=== PATIENT | male | born 1935 | race Caucasian/White ===

== ENCOUNTER → 2017-03-13 | Outpatient (CLI) | payer MEDICARE ==
[~2017-03-13] MED LIST: AMLO10TA82 PO; ASP81CT PO; ATOR40TA PO; ATR20T PO; CEPH250T PO; ESCI10TA48 PO; FLAXSEED MEAL PO; GLIM2TAB PO; HYDR-3454 PO; LISI40TA PO; METO25TA2 PO; MTF500T PO; OMEG1CAP24 PO; TAMS0.4C2 PO; UBID100C27 PO
== END ==
LOC: CARD 10:51
PROVIDERS: ATTEND Family Medicine
DX: R00.2 Palpitations (principal)
CPT/HCPCS: 93005

== ENCOUNTER 2018-10-25 05:36 | Outpatient (CLI) | payer MEDICARE ==
[~2018-10-25] VITALS: Ht 180.3 cm; Wt 99.3 kg
[2018-10-25] MEDS ORDERED: LISI40TA PO (13:19)
[2018-10-25] MEDS ORDERED: ASPI-999 PO (13:19)
[2018-10-25] MEDS ORDERED: TAMS0.4C2 PO (13:19)
[2018-10-25] MEDS ORDERED: AMLO10TA6 PO (13:19)
[2018-10-25] MEDS ORDERED: HYDR25TA4 PO (13:19)
[2018-10-25] MEDS ORDERED: GLIM2TAB PO (13:19)
[2018-10-25] MEDS ORDERED: METF-397 PO (13:19)
[2018-10-25] MEDS ORDERED: ATOR20TA66 PO (13:19)
[2018-10-25] MEDS ORDERED: FLUT9.9S NSEACH (13:19)
== END 2018-10-25 13:23 | disposition home or self-care (01) ==
LOC: PREOP 05:36
PROVIDERS: ATTEND Surgery
DX: Z01.818 Encounter for other preprocedural examination (principal)

== ENCOUNTER 2018-11-01 07:45 | Day surgery (SDC) | payer MEDICARE ==
[~2018-11-01] VITALS: Ht 180.3 cm; Wt 99.3 kg
[~2018-11-01 07:45] MED LIST changes: +AMLO10TA6 PO; +ASPI-999 PO; +ATOR20TA66 PO; +FLUT9.9S NSEACH; +HYDR25TA4 PO; +METF-397 PO
[2018-11-01 08:00] VITALS: BP 145/85
--- NOTE | 2018-11-01 08:08 | Progress Note-Pre Operative ---
Pre-Operative Progress Note H&P Reviewed The H&P was reviewed, patient examined and no changes noted. Date Seen by Provider: Nov 01, 2018 Time Seen by Provider: 08:07 Date H&P Reviewed: Nov 01, 2018 Time H&P Reviewed: 08:07 Pre-Operative Diagnosis: right face lesion, left neck lesion, facial lesions RACHEL KAUR DO Nov 01, 2018 08:08
[2018-11-01] MEDS ORDERED: BUPIVACAINE 0.5% 30 ML (SENSORCAINE) VIAL ONE (08:33)
[2018-11-01] MEDS ORDERED: LIDOCAINE 1% INJ 20 ML 20 ML VIAL ONE (08:33)
[2018-11-01] MEDS ORDERED: ceFAZolin 1,000 MG/10 ML (ANCEF) VIAL ONE (08:35)
[2018-11-01] MEDS ORDERED: NS (IVPB) 50 ML ONE (08:36)
[2018-11-01] MEDS ORDERED: proPOfol 200 MG/20 ML (DIPRIVAN) VIAL IV ONE (08:46)
[2018-11-01] MEDS ORDERED: SEVOFLURANE (ULTANE) 15 ML INHAL SOLN ONE ×4 (08:46→09:40)
[2018-11-01] MEDS ORDERED: ONDANSETRON 4 MG/2 ML (SDV) Z0FRAN ONE (08:46)
[2018-11-01] MEDS ORDERED: LIDOCAINE PF 2% 5 ML (XYLOCAINE) VIAL ONE (08:46)
[2018-11-01] MEDS ORDERED: fentaNYL INJECTION 100 MCG/2 ML AMP ONE (08:46)
[2018-11-01] MEDS ORDERED: LACTATED RINGERS 1,000 ML IV PRN (08:55)
[2018-11-01] MEDS ORDERED: ceFAZolin INJECTION 1,000 MG in NS (IVPB) 50 ML IV ONE (09:00)
[2018-11-01] MEDS ORDERED: ATROPINE INJ 0.4 MG/ML SDV ONE (09:19)
[2018-11-01] MEDS ORDERED: GLYCOPYRROLATE 0.2 MG/ML (ROBINUL) 2 ML VIAL ONE (09:19)
--- NOTE | 2018-11-01 09:59 | Progress Note-Post Operative ---
Post-Operative Progess Note Surgeon (s)/Boat Motor Mechanic (s) Surgeon RACHEL KAUR DO Boat Motor Mechanic: NA Pre-Operative Diagnosis right face lesion, left neck lesion, facial lesions Post-Operative Diagnosis SAME Procedure & Operative Findings Date of Procedure 11/01/18 Procedure Performed/Findings excision right face lesion 2.5x1cm left neck lesion 2.5x1.5cm and right cheek lesion amputated and lesion base and fulgurated Anesthesia Type gen Estimated Blood Loss Estimated blood loss (mL): min Specimens/Packing Specimens Removed skin lesions RACHEL KAUR DO Nov 01, 2018 09:59
[2018-11-01] MEDS ORDERED: ONDANSETRON 4 MG/2 ML (SDV) Z0FRAN IVP PRN (10:00)
--- NOTE | 2018-11-01 10:01 | Discharge Inst-Simple/Standard ---
Discharge Inst-Standard Patient Instructions/Follow Up Plan of Care/Instructions/FU: 7-10 days Pushpa for suture removal Activity as Tolerated: No Discharge Diet: Regular Diet Other Inst to Patient Follow up Appt: Make appointment for 7-10 days. Instructions: No lifting greater than 10 pounds. No strenuous activity. May shower in 24 hours, no tub bath or soaking. Use incentive spirometer at home as directed. No Smoking Skin/Wound Care: May remove bandages in 24 hrs. You need to leave the white strips over incision on they will fall off on their own. Symptoms to Report: Appetite Changes, Extremity Discoloration, Numbness/Tingling, Swelling Increased , Bleeding Excessive, Eyesight Changes, Pain Increased, Urine Color Change, Constipation(Persistent), Fever over 101 degree F, Pain/Pressure in chest, Urinating Difficulty, Cough Up/Vomit Blood, Heart Beat Irreg/Pounding, Pain/ Pressure in jaw, Vaginal Bleeding Increase, Cramps in feet or legs, Lightheadedness, Pain/Pressure in shoulder, Diarrhea(Persistent), Memory Changes Suddenly, Questions/Concerns, Weight gain consecutive days, Dizziness/ Fainting, Nausea/Vomiting, Shortness of Breath, Weight gain over 2 pounds If questions or concerns contact your physician Or seek help at emergency department. RACHEL KAUR DO Nov 01, 2018 10:01
[2018-11-01 11:00] VITALS: BP 134/77
[2018-11-01 11:30] VITALS: BP 143/74
[2018-11-01 12:00] VITALS: BP 119/78
--- NOTE | 2018-11-01 12:10 | Anesthesia-General Post-Op ---
General Patient Condition Mental Status/LOC: Same as Preop Cardiovascular: Satisfactory Nausea/Vomiting: Absent Respiratory: Satisfactory Pain: Controlled Complications: Absent Post Op Complications Complications None Follow Up Care/Instructions Patient Instructions None needed. Anesthesia/Patient Condition Patient Condition Patient is doing well, no complaints, stable vital signs, no apparent adverse anesthesia problems. No complications reported per nursing. D/C home per [facility] Criteria: Yes JUAN VARGAS CRNA Nov 01, 2018 12:10
--- NOTE | 2018-11-01 15:57 | OPERATIVE REPORT ---
DATE OF SERVICE: 11/01/2018 PREOPERATIVE DIAGNOSIS: Right face, left neck and facial lesions. POSTOPERATIVE DIAGNOSIS: Right face, left neck and facial lesions. PROCEDURE PERFORMED: Excision of right face lesion 2.5 x 1 cm, left neck lesion 2.5 x 1.5 cm and right cheek lesions of amputated and fulgurated 0.3 cm. SURGEON: Rachel Barrow DO. ANESTHESIA: General. ESTIMATED BLOOD LOSS: Minimal. COMPLICATIONS: None. INDICATIONS: The patient is an 83-year-old male with lesions he like to have removed. He understands risks and benefits of procedure and wished to proceed with procedure. Consent was signed on the chart. DESCRIPTION OF PROCEDURE: The patient was taken to the operating suite, was prepped and draped in sterile fashion. Surgical pause was performed. Local anesthetic was used to infiltrate around the lesions. A #15 blade scalpel was used to make an incision around in an elliptical fashion. Skin and subcutaneous tissue was removed. The skin was then closed with 5-0 Prolene. The overall size was 2.5 x 1 cm on the right face. The lesion of the left neck was removed in the same fashion, total measurements 2.5 x 1.5 cm. The patient had a lesion on the right cheek that was elevated and amputated which the base was 0.3 cm. Cautery was used for fulguration along with the small lesion right nasal fulgurated and a second small lesion in the cheek was fulgurated as well. The patient tolerated procedure well without any complications and taken to recovery room in stable condition. Job ID: [id number] DocumentID: [id number] Dictated Date: 11/01/2018 10:04:39 Speech Assistant Date: 11/01/2018 15:56:38 Dictated By: RACHEL BARROW DO
== END 2018-11-01 12:15 | disposition home or self-care (01) ==
LOC: SDC 07:45
PROVIDERS: ATTEND Surgery
DX: C44.310 Basal cell carcinoma of skin of unspecified parts of face (principal); C44.41 Basal cell carcinoma of skin of scalp and neck; L82.1 Other seborrheic keratosis; I25.10 Atherosclerotic heart disease of native coronary artery without angina pectoris; I10 Essential (primary) hypertension; E11.9 Type 2 diabetes mellitus without complications; E78.2 Mixed hyperlipidemia; N28.9 Disorder of kidney and ureter, unspecified; Z86.73 Personal history of transient ischemic attack (TIA), and cerebral infarction without residual deficits; Z95.1 Presence of aortocoronary bypass graft; Z79.82 Long term (current) use of aspirin; Z79.84 Long term (current) use of oral hypoglycemic drugs; Z79.899 Other long term (current) drug therapy
CPT/HCPCS: 82962; 87081

== ENCOUNTER 2020-05-14 15:53 | Inpatient (IN) | payer MEDICARE, OTHER ==
[~2020-05-14] VITALS: Ht 177 cm; Wt 104.0 kg
[~2020-05-14 15:53] MED LIST changes: -AMLO10TA6 PO; +AMLO10TA7 PO; +GLIM2TAB4 PO
[2020-05-14 16:13] LABS: BASOPHILS % (AUTO) 1 % (0-10); EOSINOPHILS # (AUTO) 0.1 10^3/uL (0.0-0.3); EOSINOPHILS % (AUTO) 1 % (0-10); HEMATOCRIT 42 % (40-54); HEMOGLOBIN 14.2 G/DL (13.3-17.7); LYMPHOCYTES # (AUTO) 1.4 X 10^3 (1.0-4.0); LYMPHOCYTES % (AUTO) 26 % (12-44); MEAN CORPUSCULAR HEMOGLOBIN 31 PG (25-34); MEAN CORPUSCULAR HGB CONC 34 G/DL (32-36); MEAN CORPUSCULAR VOLUME 90 FL (80-99); MEAN PLATELET VOLUME 9.4 FL (7.4-10.4); MONOCYTES # (AUTO) 0.5 X 10^3 (0.0-1.0); MONOCYTES % (AUTO) 10 % (0-12); NEUTROPHILS # (AUTO) 3.3 X 10^3 (1.8-7.8); NEUTROPHILS % (AUTO) 63 % (42-75); PLATELET COUNT 195 10^3/uL (130-400); RED CELL DISTRIBUTION WIDTH 13.4 % (10.0-14.5); WHITE BLOOD COUNT 5.3 10^3/uL (4.3-11.0)
[2020-05-14 16:21] LABS: CHLORIDE 108 MMOL/L (98-107); POTASSIUM 4.3 MMOL/L (3.6-5.0); SODIUM 141 MMOL/L (135-145)
[2020-05-14 16:22] LABS: CALCIUM 10.1 MG/DL (8.5-10.1)
[2020-05-14 16:24] LABS: GLUCOSE 110 MG/DL (70-105); TOTAL PROTEIN 6.4 GM/DL (6.4-8.2)
[2020-05-14 16:25] LABS: BILIRUBIN,TOTAL 0.5 MG/DL (0.1-1.0); CARBON DIOXIDE 24 MMOL/L (21-32)
[2020-05-14 16:27] LABS: ALKALINE PHOSPHATASE 116 U/L (40-136); CREATININE SERUM 1.16 MG/DL (0.60-1.30); GFR ESTIMATED 60
[2020-05-14 16:28] LABS: BUN/CREATININE RATIO 18
[2020-05-14 16:30] LABS: ALANINE AMINOTRANSFERASE 24 U/L (0-55); MAGNESIUM 2.3 MG/DL (1.6-2.4)
[2020-05-14 16:33] LABS: ERYTHROCYTE SEDIMENTATION RATE 6 MM/HR (0-30)
--- NOTE | 2020-05-14 16:39 | Diagnostic Imaging Report ---
INDICATION: Shortness of air. COMPARISON: 07/02/2014. TECHNIQUE: Single radiograph of the chest dated 05/14/2020. FINDINGS: Post surgical changes of a CABG are again identified. The cardiac silhouette is enlarged, appearing minimally more prominent than in 2014. Minimal central pulmonary vascular congestion. The lungs are clear of focal pulmonary opacity. No significant pleural effusion. No pneumothorax. No acute osseous abnormality. IMPRESSION: Cardiomegaly and mild central pulmonary vascular congestion, increased since 2014, though there is no significant interstitial edema or pleural effusion. Dictated by: Dictated on workstation # [id number]
[2020-05-14 16:42] LABS: INR 1.1 (0.8-1.4); PROTHROMBIN TIME PATIENT 14.3 SEC (12.2-14.7)
[2020-05-14 16:45] LABS: BILIRUBIN,URINE NEGATIVE (NEGATIVE); CLARITY,URINE CLEAR; COLOR,URINE YELLOW; GLUCOSE, URINE (UA) NEGATIVE (NEGATIVE); KETONES,URINE NEGATIVE (NEGATIVE); LEUKOCYTE ESTERASE ,URINE 2+ (NEGATIVE); NITRITE,URINE NEGATIVE (NEGATIVE); PROTEIN,URINE NEGATIVE (NEGATIVE)
[2020-05-14 16:51] LABS: BACTERIA,URINE MODERATE /HPF; WBC,URINE 50-100 /HPF
--- NOTE | 2020-05-14 17:00 | ED Respiratory ---
General Chief Complaint: Respiratory Problems Stated Complaint: SOA Nursing Triage Note: WOKE UP 46 MINS AGO WITH SOA. DENIES ANY OTHER SYMPTOMS OTHER THEN A STUFFY NOSE. PT TEARFUL ET KEEPS TALKING ABOUT HIS OLD AGE. Source: patient Exam Limitations: no limitations History of Present Illness Date Seen by Provider: May 14, 2020 Time Seen by Provider: 15:54 Initial Comments Here with report of waking up short of breath. Does have mild stuffy nose but states that is actually chronic. Denies fever or chills. Patient is tearful and stating that he is getting old. Has not had any significant travel and doesn't really get out of the house. Does have history of atrial fibrillation. His took his blood pressure and noted his heart rate in the 40s and 50s. He states it can be slow at times but this may be a little slower. Denies nausea, vomiting, diarrhea but does have some fatigue that he attributes to age. Timing/Duration: just prior to arrival (Approximately 45 minutes ago) Severity: moderate Prior Episodes/Possible Cause: no prior episodes Modifying Factors: Improves With Rest Associated Symptoms: No chest pain/soreness, No cough, No dizziness, No fever/chills, No headache; nasal congestion, shortness of breath; No sore throat Allergies and Home Medications Allergies Coded Allergies: No Known Drug Allergies (Unverified , 05/01/13) Home Medications Amlodipine Besylate 10 Mg Tablet, 10 MG PO DAILY, (Reported) Aspirin 81 Mg Tab.chew, 81 MG PO DAILY, (Reported) Atorvastatin Calcium 20 Mg Tablet, 20 MG PO DAILY, (Reported) Fluticasone Propionate 9.9 Ml Stuart.susp, 1 SPRAY NSEACH DAILY, (Reported) Glimepiride 2 Mg Tablet, 2 MG PO DAILY, (Reported) Hydrochlorothiazide 25 Mg Tablet, 25 MG PO DAILY, (Reported) Lisinopril 40 Mg Tablet, 40 MG PO DAILY, (Reported) Metformin HCl 500 Mg Tablet, 500 MG PO BID WITH MEALS, (Reported) Tamsulosin HCl 0.4 Mg Cap.er.24h, 0.4 MG PO DAILY, (Reported) Daily until stone passage Patient Home Medication List Home Medication List Reviewed: Yes Review of Systems Review of Systems Constitutional: see HPI; No chills, No fever EENTM: see HPI; No throat pain Respiratory: No cough; short of breath Cardiovascular: No chest pain; edema Gastrointestinal: No abdominal pain, No nausea, No vomiting Genitourinary: no symptoms reported Musculoskeletal: no symptoms reported Skin: no symptoms reported Psychiatric/Neurological: Anxiety; Denies Headache Hematologic/Lymphatic: No Symptoms Reported All Other Systems Reviewed Negative Unless Noted: Yes Past Abcletw-Lcxuxt-Igbyst Hx Past Med/Social Hx: Reviewed Nursing Past Med/Soc Hx Patient Social History Alcohol Use: Denies Use Recreational Drug Use: No Smoking Status: Never a Smoker Recent Foreign Travel: No Contact w/Someone Who Travel: No Recent Infectious Disease Expo: No Recent Hopitalizations: No Immunizations Up To Date Tetanus Booster (TDap): More than 5yrs PED Vaccines UTD: No Date of Pneumonia Vaccine: Jun 23, 2012 Date of Influenza Vaccine: Jul 22, 2018 Seasonal Allergies Seasonal Allergies: No Past Medical History Surgeries: Yes (OPEN PROSTATE SURGERY, CATARACTS) Appendectomy, CABG Respiratory: No Chronic Bronchitis Cardiac: Yes (QUAD BYPASS) Coronary Artery Disease, Heart Attack, Hypertension Neurological: No Reproductive Disorders: No Sexually Transmitted Disease: No HIV/AIDS: No Genitourinary: Yes Benign Prostatic Hyperpl, Kidney Stones Gastrointestinal: Yes Gastroesophageal Reflux, Hemorrhoids Musculoskeletal: Yes (history of fx ribs) Arthritis Endocrine: Yes Diabetes, Non-Insulin dep HEENT: Yes Cataract Loss of Vision: Denies Cancer: Yes Melanoma What Type of Treatment Did You: Surgical Intervention Psychosocial: Yes Depression Integumentary: Yes (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 0.0oz. 99.325076in; 33.00 BMI Method:Stated General Appearance: WD/WN, mild distress HEENT: PERRL/EOMI, TMs normal, pharynx normal, other (Erythema and clear rhin orrhea noted) Neck: full range of motion, supple Respiratory: lungs clear, normal breath sounds Cardiovascular: no murmur, bradycardia Gastrointestinal: non tender, soft Extremities: non-tender, normal inspection, pedal edema (1+ bilateral lower extremities to level of mid tibia) Neurologic/Psychiatric: alert, oriented x 3 Skin: normal color, warm/dry Focused Exam Lactate Level 05/14/20 17:10: Lactic Acid Level 1.42 Lactic Acid Level Laboratory Tests Test 05/14/20 17:10 Lactic Acid Level 1.42 MMOL/L (0.50-2.00) Progress/Results/Core Measures Suspected Sepsis Recent Fever Within 48 Hours: No Infection Criteria Present: None New/Unexplained Altered Menta: No Sepsis Screen: No Definite Risk SIRS Temperature: Pulse: 54 Respiratory Rate: 16 Laboratory Tests 05/14/20 16:00: White Blood Count 5.3 Blood Pressure 144 /60 Mean: 88 05/14/20 17:10: Lactic Acid Level 1.42 Laboratory Tests 05/14/20 16:00: Creatinine 1.16, INR Comment 1.1, Platelet Count 195, Total Bilirubin 0.5 Results/Orders Lab Results Laboratory Tests Test 05/14/20 16:00 05/14/20 16:37 05/14/20 17:10 Range/Units White Blood Count 5.3 4.3-11.0 10^3/uL Red Blood Count 4.60 4.35-5.85 10^6/uL Hemoglobin 14.2 13.3-17.7 G/DL Hematocrit 42 40-54 % Mean Corpuscular Volume 90 80-99 FL Mean Corpuscular Hemoglobin 31 25-34 PG Mean Corpuscular Hemoglobin Concent 34 32-36 G/DL Red Cell Distribution Width 13.4 10.0-14.5 % Platelet Count 195 130-400 10^3/uL Mean Platelet Volume 9.4 7.4-10.4 FL Neutrophils (%) (Auto) 63 42-75 % Lymphocytes (%) (Auto) 26 12-44 % Monocytes (%) (Auto) 10 0-12 % Eosinophils (%) (Auto) 1 0-10 % Basophils (%) (Auto) 1 0-10 % Neutrophils # (Auto) 3.3 1.8-7.8 X 10^3 Lymphocytes # (Auto) 1.4 1.0-4.0 X 10^3 Monocytes # (Auto) 0.5 0.0-1.0 X 10^3 Eosinophils # (Auto) 0.1 0.0-0.3 10^3/uL Basophils # (Auto) 0.0 0.0-0.1 10^3/uL Erythrocyte Sedimentation Rate 6 0-30 MM/HR Prothrombin Time 14.3 12.2-14.7 SEC INR Comment 1.1 0.8-1.4 Activated Partial Thromboplast Time 30 24-35 SEC D-Dimer 0.58 H 0.00-0.49 UG/ML Sodium Level 141 135-145 MMOL/L Potassium Level 4.3 3.6-5.0 MMOL/L Chloride Level 108 H 98-107 MMOL/L Carbon Dioxide Level 24 21-32 MMOL/L Anion Gap 9 5-14 MMOL/L Blood Urea Nitrogen 21 H 7-18 MG/DL Creatinine 1.16 0.60-1.30 MG/DL Estimat Glomerular Filtration Rate 60 BUN/Creatinine Ratio 18 Glucose Level 110 H 70-105 MG/DL Calcium Level 10.1 8.5-10.1 MG/DL Corrected Calcium 10.1 8.5-10.1 MG/DL Magnesium Level 2.3 1.6-2.4 MG/DL Total Bilirubin 0.5 0.1-1.0 MG/DL Aspartate Amino Transf (AST/SGOT) 25 5-34 U/L Alanine Aminotransferase (ALT/SGPT) 24 0-55 U/L Alkaline Phosphatase 116 40-136 U/L Myoglobin 110.6 H 10.0-92.0 NG/ML Troponin I < 0.028 <0.028 NG/ML C-Reactive Protein High Sensitivity 0.15 0.00-0.50 MG/DL B-Type Natriuretic Peptide 202.5 H <100.0 PG/ML Total Protein 6.4 6.4-8.2 GM/DL Albumin 4.0 3.2-4.5 GM/DL Thyroid Stimulating Hormone (TSH) 0.83 0.35-4.94 UIU/ML Urine Color YELLOW Urine Clarity CLEAR Urine pH 6.0 5-9 Urine Specific Slick 1.020 1.016-1.022 Urine Protein NEGATIVE NEGATIVE Urine Glucose (UA) NEGATIVE NEGATIVE Urine Ketones NEGATIVE NEGATIVE Urine Nitrite NEGATIVE NEGATIVE Urine Bilirubin NEGATIVE NEGATIVE Urine Urobilinogen 1.0 < = 1.0 MG/DL Urine Leukocyte Esterase 2+ H NEGATIVE Urine RBC (Auto) NEGATIVE NEGATIVE Urine RBC NONE /HPF Urine WBC 50-100 H /HPF Urine Crystals NONE /LPF Urine Bacteria MODERATE H /HPF Urine Casts NONE /LPF Urine Mucus NEGATIVE /LPF Urine Culture Indicated YES Lactic Acid Level 1.42 0.50-2.00 MMOL/L My Orders Orders - HIREN PICKENS MD BNP (05/14/20 16:03) Cbc With Automated Diff (05/14/20 16:03) Comprehensive Metabolic Panel (05/14/20 16:03) Hs C Reactive Protein (05/14/20 16:03) Fibrin Degradation Products (05/14/20 16:03) Magnesium (05/14/20 16:03) Thyroid Stimulating Hormone (05/14/20 16:03) Troponin I (05/14/20 16:03) Ua Culture If Indicated (05/14/20 16:03) Erythrocyte Sedimentation Rate (05/14/20 16:03) Myoglobin Serum (05/14/20 16:03) Chest 1 View, Ap/Pa Only (05/14/20 16:03) Ed Iv/Invasive Line Start (05/14/20 16:03) Ekg Tracing (05/14/20 16:03) Monitor-Rhythm Ecg Trace Only (05/14/20 16:03) Protime With Inr (05/14/20 16:03) Partial Thromboplastin Time (05/14/20 16:03) Urine Culture (05/14/20 16:37) Lactic Acid Analyzer (05/14/20 17:01) Blood Culture (05/14/20 17:01) Ns Iv 500 Ml (Sodium Chloride 0.9%) (05/14/20 17:01) Ns Iv 1000 Ml (Sodium Chloride 0.9%) (05/14/20 17:07) Ceftriaxone For Iv Use (Rocephin For I (05/14/20 17:31) Medications Given in ED Current Medications Medications Dose Ordered Sig/Homero Route Start Time Stop Time Status Last Admin Dose Admin Sodium Chloride 500 ml @ 0 mls/hr Q0M ONCE IV 05/14/20 17:01 05/14/20 17:04 DC 05/14/20 17:19 500 MLS/HR Vital Signs/I&O 05/14/20 15:53 Temp 36.6 Pulse 54 Resp 16 B/P (MAP) 144/60 (88) Pulse Ox 99 O2 Delivery Room Air Capillary Refill : Less Than 3 Seconds Blood Pressure Mean: 88 Progress Note : Progress Note Seen and evaluated. IV, labs, EKG and chest x-ray ordered. UA ordered. Monitor patient. 170: UTI noted. Blood cultures and lactic acid ordered. Rocephin 1 g IV after blood cultures ordered. We will give 500 mL of normal saline. 1744: I discussed the case with Dr. Farfan. Lactic acid is normal. I do believe he is low risk for COVID-19 but patient does admit that he has been to a few [employer] fund raisers in [place] in the last 2 weeks and was recently last weekend. His is not sick and he does not know of any sick contacts but he does have some increased risk due to being out about in the community. We will go ahead and get COVID-19 screening due to moving about in the community and new shortness of air. I will get consult with Dr. Sepulveda due to bradycardia. He normally follows with Dr. Russ. We will continue Rocephin every 24 hours and will get EKG in the morning. Findings concerns discussed with the patient who agrees with the plan. Admit, inpatient status. 1814: I discussed the case with Dr. Sepulveda. He is requesting Lasix 20 mg IV, ASA 81 mg by mouth and Lovenox 40 mg subcutaneous. These were ordered. We will continue his amlodipine and aspirin 81 mg daily as well as Lovenox twice a day 40 mg subcutaneous. ECG Initial ECG Impression Date: May 14, 2020 Initial ECG Impression Time: 16:07 Initial ECG Rate: 49 Comment Machine read as atrial fibrillation. There appears to be low volume P waves noted especially in lead 1 that would indicate first-degree block and sinus bradycardia. This is more consistent with his previous EKG of 03/13/17. 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 Morphology otherwise similar to previous. Interpreted by me. Diagnostic Imaging Diagonstic Imaging: Xray Plain Films/CT/US/NM/MRI: chest Comments [facility] [place], [place] NAME: VICTORIA VERAS [facility] REC#: [id number] PT STATUS: REG ER : 1935 PHYSICIAN: HIREN PICKENS MD ADMIT DATE: 05/14/20/ER Draft Date of Exam:05/14/20 CHEST 1 VIEW, AP/PA ONLY INDICATION: Shortness of air. COMPARISON: 07/02/2014. TECHNIQUE: Single radiograph of the chest dated 05/14/2020. FINDINGS: Post surgical changes of a CABG are again identified. The cardiac silhouette is enlarged, appearing minimally more prominent than in 2014. Minimal central pulmonary vascular congestion. The lungs are clear of focal pulmonary opacity. No significant pleural effusion. No pneumothorax. No acute osseous abnormality. IMPRESSION: Cardiomegaly and mild central pulmonary vascular congestion, increased since 2013, though there is no significant interstitial edema or pleural effusion. Dictated on workstation # [id number] Dict: 05/14/20 1635 Trans: 05/14/20 1638 [id number] Interpreted by: VIOLET ANNA MD Electronically signed by: Departure Communication (Admissions) Time/Spoke to Admitting Phy: 17:45 Impression Primary Impression: Urinary tract infection Qualified Codes: N30.00 - Acute cystitis without hematuria Additional Impressions: Bradycardia Shortness of breath COVID 19 evaluation Disposition: ADMITTED INPATIENT Condition: Stable Admissions Decision to Admit Reason: Admit from ER (General) Decision to Admit/Date: May 14, 2020 Time/Decision to Admit Time: 17:45 Departure-Patient Inst. Referrals: FAUSTINA FARFAN MD (PCP/Family) Primary Care Physician HIREN PICKENS MD May 14, 2020 17:00
[2020-05-14] MEDS ORDERED: NS IV 500 ML 500 ML IV ONE (17:01)
[2020-05-14] MEDS ORDERED: NS IV 1000 ML 1,000 ML IV ONE (17:07)
[2020-05-14 17:21] LABS: FIBRIN DEGRADATION PRODUCTS 0.58 UG/ML (0.00-0.49)
--- NOTE | 2020-05-14 17:24 | NUR ---
UPDATE GIVEN TO [facility] [employer] [employer]. PHONE NUMBER AQUIRED AND WILL GIVE IT TO THE DR FOR HIM TO GIVE A UPDATE WHEN WE KNOW MORE.
[2020-05-14] MEDS ORDERED: cefTRIAXone FOR IV USE 1,000 MG in WATER (STERILE) FOR INJECTION 10 ML IV STA (17:31)
--- NOTE | 2020-05-14 17:46 | NUR ---
TALKED WITH HIS VIA PHONE AND NOTIFIED OF ADMIT.
--- NOTE | 2020-05-14 17:48 | NUR ---
DRILL OPERATOR AUTOMATIC CONTACTED FOR BED A PUI
--- NOTE | 2020-05-14 17:50 | NUR ---
COVID SWAB DONE
[2020-05-14] MEDS ORDERED: ASPIRIN 81 MG CHEW (CHILDREN'S ASA) PO STA (18:13)
[2020-05-14] MEDS ORDERED: FUROSEMIDE 40 MG/4 ML INJ (LASIX) IV STA (18:13)
[2020-05-14] MEDS ORDERED: ENOXAPARIN 40 MG/0.4 ML (LOVENOX) SYR SC ONE (18:15)
--- NOTE | 2020-05-14 18:39 | NUR ---
VICTORIA VERAS admitted to room 423-1, with an admitting diagnosis of sob, on 05/14/20 from ED via wheel chair, accompanied by staff .VICTORIA VERAS introduced to surroundings, call light, bed controls, phone, TV, temperature control, lights, meal times, smoking policy, visitor policy, side rail policy, bathrooms and showers. Patient Rights given to patient in the handbook. VICTORIA VERAS verbalizes understanding that [facility] is not responsible for the loss or damage to any personal effects or valuables that are kept in the patients posession during their hospitalization. The following Patient Care Plans and discharge were discussed with the patient . VICTORIA VERAS verbalizes understanding of Interdisciplinary Patient Education. Patient informed about the Rapid Response Team and its purpose.
[2020-05-14 18:44] VITALS: BP 147/65
[2020-05-14] MEDS ORDERED: ONDANSETRON 4 MG/2 ML (SDV) Z0FRAN IVP PRN (18:45)
--- OUTSIDE RECORDS SUMMARY | 2020-05-14 18:52 | XMS REPORT | Continuity of Care Document ---
Author Organization Unknown Address Unknown Phone Unavailable Allergies Active Description Code Type Severity Reaction Onset Reported/Identified Relationship to Patient Clinical Status Yes No Known Drug Allergies [id number] Drug Allergy Unknown N/A 05/01/2013 Medications There is no data. Problems Date Dx Coded Attending Type Code Diagnosis Diagnosed By 07/29/2013 ZAIDA ETIENNE MD Ot V45. 81 AORTOCORONARY BYPASS 07/29/2013 ZAIDA ETIENNE MD Ot V57. 89 REHABILITATION PROC NEC 08/16/2013 FAUSTINA FARFAN MD Ot 041. 02 BACTERIAL INFECTION DUE TO STREPTOCOCCUS 08/16/2013 FAUSTINA FARFAN MD Ot 041. 85 BACTERIAL INFEC DUE TO OTH GRAM-NEG ORGA 08/16/2013 FAUSTINA FARFAN MD Ot 250. 00 DIAB REHAN WO COMPL, TYPE II OR UNSPEC TY 08/16/2013 FAUSTINA FARFAN MD Ot 272. 0 PURE HYPERCHOLESTEROLEM 08/16/2013 FAUSTINA FARFAN MD Ot 272. 4 HYPERLIPIDEMIA NEC/NOS 08/16/2013 FAUSTINA FARFAN MD Ot 311 DEPRESSIVE DISORDER NEC 08/16/2013 FAUSTINA FARFAN MD Ot 401. 9 HYPERTENSION NOS 08/16/2013 FAUSTINA FARFAN MD Ot 412 OLD MYOCARDIAL INFARCT 08/16/2013 FAUSTINA FARFAN MD Ot 414. 00 CORON ATHEROSCLER NOS TYPE VESSEL, NATIV 08/16/2013 FAUSTINA FARFAN MD Ot 490 BRONCHITIS NOS 08/16/2013 FAUSTINA FARFAN MD Ot 599. 0 URIN TRACT INFECTION NOS 08/16/2013 FAUSTINA FARFAN MD Ot 600. 00 HYPERTROPHY (BENIGN) OF PROSTATE W/O URI 08/16/2013 FAUSTINA FARFAN MD Ot 716. 90 ARTHROPATHY NOS-UNSPEC 08/16/2013 FAUSTINA FARFAN MD Ot 786. 50 CHEST PAIN NOS 08/16/2013 FAUSTINA FARFAN MD Ot V04. 81 ND FOR PROPHYLACTIC VACCIN AND INOCULATI 08/16/2013 FAUSTINA FARFAN MD, Ot V45. 81 AORTOCORONARY BYPASS 11/28/2013 RACHEL KAUR DO Ot 173. 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 0 OPEN WOUND OF BACK 07/02/2014 ZAIDA ETIENNE MD Ot 272. 4 HYPERLIPIDEMIA NEC/NOS 07/02/2014 ZAIDA ETIENNE MD Ot 401. 9 HYPERTENSION NOS 07/02/2014 ZAIDA ETIENNE MD Ot 414. 01 CORONARY ATHEROSCLEROSIS OF [place] CORON 07/02/2014 ZAIDA ETIENNE MD Ot 414. 2 CHRONIC TOTAL OCCLUSION OF CORONARY [place] 07/02/2014 ZAIDA ETIENNE MD Ot 786. 50 CHEST PAIN NOS 07/02/2014 ZAIDA ETIENNE MD Ot 794. 30 ABN CARDIOVASC STUDY NOS 07/02/2014 ZAIDA ETIENNE MD, Ot V45. 81 AORTOCORONARY BYPASS 06/23/2015 FAUSTINA FARFAN MD, Ot 786. 09 09/25/2015 ANN PERDOMO MD Ot D12.7 BENIGN NEOPLASM OF RECTOSIGMOID JUNCTION 09/25/2015 ANN PERDOMO MD Ot K57.30 DVRTCLOS OF LG INT W/O PERFORATION OR AB 09/25/2015 ANN PERDOMO MD Ot K64.1 SECOND DEGREE HEMORRHOIDS 09/25/2015 ANN PERDOMO MD Ot Z12.11 ENCOUNTER FOR SCREENING FOR MALIGNANT NE 09/30/2015 FAUSTINA FARFAN MD Ot R10. 9 02/02/2016 ZAIDA ETIENNE MD Ot E66. 9 02/02/2016 ZAIDA ETIENNE MD, Ot E78. 2 02/02/2016 ZAIDA ETIENNE MD Ot I10 02/02/2016 ZAIDA ETIENNE MD, Ot I25. 10 04/03/2017 FAUSTINA FARFAN MD Ot R00. 2 PALPITATIONS 10/25/2018 RACHEL KAUR DO Ot Z01.818 ENCOUNTER FOR OTHER PREPROCEDURAL EXAMIN 10/26/2018 ZAIDA ETIENNE MD Ot 272. 4 HYPERLIPIDEMIA NEC/NOS 10/26/2018 LOWELL MD, BASHAR J Ot 401. 9 HYPERTENSION NOS 10/26/2018 ZAIDA ETIENNE MD Ot 414. 01 CORONARY ATHEROSCLEROSIS OF [place] CORON 10/26/2018 ALMAZ NUGENT Ot 397.0 TRICUSPID VALVE DISEASE 10/26/2018 ALMAZ NUGENT Ot 401.9 HYPERTENSION NOS 10/26/2018 ALMAZ NUGENT Ot 414.00 CORON ATHEROSCLER NOS TYPE VESSEL, NATIV 10/26/2018 ALMAZ NUGENT Ot 424.0 MITRAL VALVE DISORDER 10/26/2018 RACHEL KAUR DO Ot 709. 9 SKIN DISORDER NOS 10/26/2018 RACHEL KAUR DO Ot V72. 84 EXAM PRE-OPERATIVE NOS 10/26/2018 RACHEL KAUR DO Ot V74. 8 SCREEN-BACTERIAL DIS NEC 10/26/2018 ALMAZ NUGENT Ot 250.00 DIAB REHAN WO COMPL, TYPE II OR UNSPEC TY 10/26/2018 ALMAZ NUGENT Ot 272.4 HYPERLIPIDEMIA NEC/NOS 10/26/2018 ALMAZ NUGENT Ot 401.9 HYPERTENSION NOS 10/26/2018 ALMAZ NUGENT Ot 414.00 CORON ATHEROSCLER NOS TYPE VESSEL, NATIV 10/26/2018 ALMAZ NUGENT Ot 427.69 PREMATURE BEATS NEC 10/26/2018 FAUSTINA FARFAN MD Ot 786. 09 RESPIRATORY ABNORM NEC 10/26/2018 FAUSTINA FARFAN MD Ot R10. 9 UNSPECIFIED ABDOMINAL PAIN 10/26/2018 ANN PERDOMO MD Ot R10.9 UNSPECIFIED ABDOMINAL PAIN 10/26/2018 ANN PERDOMO MD Ot Z01.81 8 ENCOUNTER FOR OTHER PREPROCEDURAL EXAMIN 10/26/2018 ANN PERDOMO MD Ot Z12.11 ENCOUNTER FOR SCREENING FOR MALIGNANT NE 10/26/2018 ZAIDA ETIENNE MD Ot E66. 9 OBESITY, UNSPECIFIED 10/26/2018 ZAIDA ETIENNE MD Ot E78. 2 MIXED HYPERLIPIDEMIA 10/26/2018 ZAIDA ETIENNE MD Ot I10 ESSENTIAL (PRIMARY) HYPERTENSION 10/26/2018 ZAIDA ETIENNE MD Ot I25. 10 ATHSCL HEART DISEASE OF [place] CORONARY 10/26/2018 ADOLPH AARON, FAUSTINA Rodriguez Ot R00. 2 PALPITATIONS 10/26/2018 RACHEL KAUR DO Ot Z01.818 ENCOUNTER FOR OTHER PREPROCEDURAL EXAMIN 10/30/2018 ZAIDA ETIENNE MD Ot 272. 4 HYPERLIPIDEMIA NEC/NOS 10/30/2018 ZAIDA ETIENNE MD Ot 401. 9 HYPERTENSION NOS 10/30/2018 ZAIDA ETIENNE MD Ot 414. 01 CORONARY ATHEROSCLEROSIS OF [place] CORON 10/30/2018 ALMAZ NUGENT Ot 397.0 TRICUSPID VALVE DISEASE 10/30/2018 ALMAZ NUGENT Ot 401.9 HYPERTENSION NOS 10/30/2018 ALMAZ NUGENT Ot 414.00 CORON ATHEROSCLER NOS TYPE VESSEL, NATIV 10/30/2018 ALMAZ NUGENT Ot 424.0 MITRAL VALVE DISORDER 10/30/2018 RACHEL KAUR DO Ot 709. 9 SKIN DISORDER NOS 10/30/2018 RACHEL KAUR DO Ot V72. 84 EXAM PRE-OPERATIVE NOS 10/30/2018 RACHEL KAUR DO Ot V74. 8 SCREEN-BACTERIAL DIS NEC 10/30/2018 ALMAZ NUGENT Ot 250.00 DIAB REHAN WO COMPL, TYPE II OR UNSPEC TY 10/30/2018 ALMAZ NUGENT Ot 272.4 HYPERLIPIDEMIA NEC/NOS 10/30/2018 ALMAZ NUGENT Ot 401.9 HYPERTENSION NOS 10/30/2018 ALMAZ NUGENT Ot 414.00 CORON ATHEROSCLER NOS TYPE VESSEL, NATIV 10/30/2018 ALMAZ NUGENT Ot 427.69 PREMATURE BEATS NEC 10/30/2018 FAUSTINA FARFAN MD Ot 786. 09 RESPIRATORY ABNORM NEC 10/30/2018 FAUSTINA FARFAN MD Ot R10. 9 UNSPECIFIED ABDOMINAL PAIN 10/30/2018 ANN PERDOMO MD Ot R10.9 UNSPECIFIED ABDOMINAL PAIN 10/30/2018 ANN PERDOMO MD Ot Z01.81 8 ENCOUNTER FOR OTHER PREPROCEDURAL EXAMIN 10/30/2018 ANN PERDOMO MD Ot Z12.11 ENCOUNTER FOR SCREENING FOR MALIGNANT NE 10/30/2018 ZAIDA ETIENNE MD Ot E66. 9 OBESITY, UNSPECIFIED 10/30/2018 ZAIDA ETIENNE MD Ot E78. 2 MIXED HYPERLIPIDEMIA 10/30/2018 ZAIDA ETIENNE MD Ot I10 ESSENTIAL (PRIMARY) HYPERTENSION 10/30/2018 ZAIDA ETIENNE MD Ot I25. 10 ATHSCL HEART DISEASE OF [place] CORONARY 10/30/2018 FAUSTINA FARFAN MD Ot R00. 2 PALPITATIONS 11/01/2018 ZAIDA ETIENNE MD Ot 272. 4 HYPERLIPIDEMIA NEC/NOS 11/01/2018 ZAIDA ETIENNE MD Ot 401. 9 HYPERTENSION NOS 11/01/2018 ZAIDA ETIENNE MD Ot 414. 01 CORONARY ATHEROSCLEROSIS OF [place] CORON 11/01/2018 ALMAZ NUGENT Ot 397.0 TRICUSPID VALVE DISEASE 11/01/2018 ALMAZ NUGENT Ot 401.9 HYPERTENSION NOS 11/01/2018 ALMAZ NUGENT Ot 414.00 CORON ATHEROSCLER NOS TYPE VESSEL, NATIV 11/01/2018 ALMAZ NUGENT Ot 424.0 MITRAL VALVE DISORDER 11/01/2018 RACHEL KAUR DO Ot 709. 9 SKIN DISORDER NOS 11/01/2018 RACHEL KAUR DO Ot V72. 84 EXAM PRE-OPERATIVE NOS 11/01/2018 RACHEL KAUR DO Ot V74. 8 SCREEN-BACTERIAL DIS NEC 11/01/2018 ALMAZ NUGENT Ot 250.00 DIAB REHAN WO COMPL, TYPE II OR UNSPEC TY 11/01/2018 ALMAZ NUGENT Ot 272.4 HYPERLIPIDEMIA NEC/NOS 11/01/2018 ALMAZ NUGENT Ot 401.9 HYPERTENSION NOS 11/01/2018 ALMAZ NUGENT Ot 414.00 CORON ATHEROSCLER NOS TYPE VESSEL, NATIV 11/01/2018 ALMAZ NUGENT Ot 427.69 PREMATURE BEATS NEC 11/01/2018 FAUSTINA FARFAN MD Ot 786. 09 RESPIRATORY ABNORM NEC 11/01/2018 FAUSTINA FARFAN MD Ot R10. 9 UNSPECIFIED ABDOMINAL PAIN 11/01/2018 ANN PERDOMO MD Ot R10.9 UNSPECIFIED ABDOMINAL PAIN 11/01/2018 ANN PERDOMO MD Ot Z01.81 8 ENCOUNTER FOR OTHER PREPROCEDURAL EXAMIN 11/01/2018 ANN PERDOMO MD Ot Z12.11 ENCOUNTER FOR SCREENING FOR MALIGNANT NE 11/01/2018 ZAIDA ETIENNE MD Ot E66. 9 OBESITY, UNSPECIFIED 11/01/2018 ZAIDA ETIENNE MD Ot E78. 2 MIXED HYPERLIPIDEMIA 11/01/2018 ZAIDA ETIENNE MD Ot I10 ESSENTIAL (PRIMARY) HYPERTENSION 11/01/2018 ZAIDA ETIENNE MD Ot I25. 10 ATHSCL HEART DISEASE OF [place] CORONARY 11/01/2018 FAUSTINA FARFAN MD Ot R00. 2 PALPITATIONS 11/01/2018 RACHEL KAUR DO Ot C44.310 BASAL CELL CARCINOMA OF SKIN OF UNSPECIF 11/01/2018 RACHEL KAUR DO Ot C44. 41 BASAL CELL CARCINOMA OF SKIN OF SCALP AN 11/01/2018 RACHEL KAUR DO Ot E11. 9 TYPE 2 DIABETES MELLITUS WITHOUT COMPLIC 11/01/2018 RACHEL KAUR DO Ot E78. 2 MIXED HYPERLIPIDEMIA 11/01/2018 RACHEL KAUR DO Ot I10 ESSENTIAL (PRIMARY) HYPERTENSION 11/01/2018 RACHEL KAUR DO Ot I25. 10 ATHSCL HEART DISEASE OF [place] CORONARY 11/01/2018 RACHEL KAUR DO Ot L82. 1 OTHER SEBORRHEIC KERATOSIS 11/01/2018 RACHEL KAUR DO Ot N28. 9 DISORDER OF KIDNEY AND URETER, UNSPECIFI 11/01/2018 RACHEL KAUR DO Ot Z79. 82 SKETCH MAKER (CURRENT) USE OF ASPIRIN 11/01/2018 RACHEL KAUR DO Ot Z79. 84 SKETCH MAKER (CURRENT) USE OF ORAL HYPOGLYC 11/01/2018 RACHEL KAUR DO Ot Z79.899 OTHER MCC (CURRENT) DRUG THERAPY 11/01/2018 RACHEL KAUR DO Ot Z86. 73 PRSNL HX OF TIA (TIA), AND CEREB INFRC W 11/01/2018 RACHEL KAUR DO Ot Z95. 1 PRESENCE OF AORTOCORONARY BYPASS GRAFT Procedures There is no data. Results Test Result Range Methicillin resistant Staphylococcus aur eus (MRSA) screening culture - 11/01/18 08:07 Methicillin resistant Staphylococcus aureus (MRSA) scr eening culture NEG NRG Capillary blood glucose measurement by g lucometer (mass/volume) - 11/01/18 08:14 Capillary blood glucose measurement by glucometer (mas s/volume) 100 mg/dL 70-110 Encounters ACCT No. Visit Date/Time Discharge Status Pt. Type Provider Facility Loc./Unit Complaint [id number] 11/01/2018 07:45:00 019 12:15:00 DIS Outpatient RACHEL KAUR DO Via [facility] SDC LESIONS RIGHT FACE AND LESION BEHIND LEFT EAR [id number] 10/25/2018 05:36:00 019 13:23:00 DIS Outpatient KAUR RACHEL PITTS Via [facility] PREOP EXCISION LESIONS RIGHT FACE AND BEHIND LEFT EAR [id number] 03/13/2017 10:51:00 017 23:59:59 CLS Outpatient FAUSTINA FARFAN MD Via [facility] CARD CARDIAC IRRGULARITY,PAL PITATIONS [id number] 01/11/2016 08:49:00 016 23:59:59 CLS Outpatient ZAIDA ETIENNE MD Via [facility] LAB CAD, HYPERTENSION, MIXE D HYPERLIPIDEMIA [id number] 09/25/2015 11:56:00 015 14:40:00 DIS Outpatient ANN PERDOMO MD Via [facility] SDC SCREENING [id number] 09/23/2015 05:35:00 015 23:59:59 CLS Outpatient ANN PERDOMO MD Via [facility] PREOP SCREENING COLONOSCOPY [id number] 09/09/2015 11:44:00 015 23:59:59 CLS Outpatient FAUSTINA FARFAN MD Via [facility] RAD FLANK PAIN [id number] 06/03/2015 13:16:00 015 23:59:59 CLS Outpatient FAUSTINA FARFAN MD Via [facility] RT DYSPENA [id number] 07/02/2014 06:47:00 09/10/2 014 15:46:00 DIS Outpatient ZAIDA ETIENNE MD Via [facility] CATH ABNORMAL STRESS TEST, C AD,HTN, DM [id number] 06/25/2014 08:20:00 23:59:59 CLS Outpatient KULWINDER NUGENT Via [facility] CARD CAD,HTN,HLP [id number] 04/07/2014 07:37:00 23:59:59 CLS Outpatient KULWINDER NUGENT Via [facility] CARD CAD,HLP,HTN [id number] 02/25/2014 10:35:00 11:50:00 DIS Outpatient RACHEL KAUR DO Via [facility] WOUNDCARE WOUNDS ON UPPER BACK PO ST OP [id number] 11/28/2013 09:27:00 14:03:00 DIS Outpatient RACHEL KAUR DO Via [facility] SDC LESIONS ON BACK [id number] 11/25/2013 10:41:00 23:59:59 CLS Outpatient KAUR RACHEL PITTS Via [facility] PREOP LESIONS ON BACK [id number] 08/14/2013 10:13:00 11:45:00 DIS Inpatient FAUSTINA FARFAN MD Via [facility] 4TH CHEST PAIN BRONCHITIS/P OSSIBLE PNEUMONIA [id number] 08/06/2013 08:09:00 23:59:59 CLS Outpatient ZAIDA ETIENNE MD Via [facility] LAB CAD,HYPERTENSION,HYPERL IPIDEMIA [id number] 07/12/2013 11:57:00 13:09:00 DIS Outpatient ZAIDA ETIENNE MD Via [facility] CR CABG [id number] 05/01/2013 18:00:00 07:15:00 DIS Outpatient [id number] 10/26/2018 04:54:00 Document Registration
[2020-05-14 20:01] VITALS: BP 119/62
--- OUTSIDE RECORDS SUMMARY | 2020-05-14 20:08 | XMS REPORT | Continuity of Care Document ---
Author Organization Unknown Address Unknown Phone Unavailable Allergies Active Description Code Type Severity Reaction Onset Reported/Identified Relationship to Patient Clinical Status Yes No Known Drug Allergies [id number] Drug Allergy Unknown N/A 05/01/2013 Medications There [...] MD Ot 414. 01 CORONARY ATHEROSCLEROSIS OF [place] CORON 07/02/2014 ZAIDA ETIENNE MD Ot 414. [...] MD Ot 414. 01 CORONARY ATHEROSCLEROSIS OF [place] CORON 10/26/2018 ALMAZ NUGENT Ot 397.0 TRICUSPID [...] Ot I25. 10 ATHSCL HEART DISEASE OF [place] CORONARY 10/26/2018 ADOLPH AARON, FAUSTINA Rodriguez Ot R00. 2 PALPITATIONS 10/26/2018 RACHEL KAUR DO Ot Z01.818 ENCOUNTER FOR OTHER PREPROCEDURAL EXAMIN 10/30/2018 ZAIDA ETIENNE MD Ot 272. 4 HYPERLIPIDEMIA NEC/NOS 10/30/2018 ZAIDA ETIENNE MD Ot 401. 9 HYPERTENSION NOS 10/30/2018 ZAIDA ETIENNE MD Ot 414. 01 CORONARY ATHEROSCLEROSIS OF [place] CORON 10/30/2018 ALMAZ NUGENT Ot 397.0 TRICUSPID [...] Ot I25. 10 ATHSCL HEART DISEASE OF [place] CORONARY 10/30/2018 FAUSTINA FARFAN MD Ot R00. 2 PALPITATIONS 11/01/2018 ZAIDA ETIENNE MD Ot 272. 4 HYPERLIPIDEMIA NEC/NOS 11/01/2018 ZAIDA ETIENNE MD Ot 401. 9 HYPERTENSION NOS 11/01/2018 ZAIDA ETIENNE MD Ot 414. 01 CORONARY ATHEROSCLEROSIS OF [place] CORON 11/01/2018 ALMAZ NUGENT Ot 397.0 TRICUSPID [...] Ot I25. 10 ATHSCL HEART DISEASE OF [place] CORONARY 11/01/2018 FAUSTINA FARFAN MD Ot R00. [...] Ot I25. 10 ATHSCL HEART DISEASE OF [place] CORONARY 11/01/2018 RACHEL KAUR DO Ot L82. 1 OTHER SEBORRHEIC KERATOSIS 11/01/2018 RACHEL KAUR DO Ot N28. 9 DISORDER OF KIDNEY AND URETER, UNSPECIFI 11/01/2018 RACHEL KAUR DO Ot Z79. 82 EYEGLASS CUTTER (CURRENT) USE OF ASPIRIN 11/01/2018 RACHEL KAUR DO Ot Z79. 84 EYEGLASS CUTTER (CURRENT) USE OF ORAL HYPOGLYC 11/01/2018 RACHEL KAUR DO Ot Z79.899 OTHER CARE HOME (CURRENT) DRUG THERAPY 11/01/2018 RACEHL KAUR DO Ot Z86. 73 PRSNL HX [...] Status Pt. Type Provider Facility Loc./Unit Complaint [id number] 11/01/2018 07:45:00 019 12:15:00 DIS Outpatient RACHEL KAUR DO Via [facility] SDC LESIONS RIGHT FACE AND LESION BEHIND LEFT EAR [id number] 10/25/2018 05:36:00 019 13:23:00 DIS Outpatient KAUR RACHEL PITTS Via [facility] PREOP EXCISION LESIONS RIGHT FACE AND BEHIND LEFT EAR [id number] 03/13/2017 10:51:00 017 23:59:59 CLS Outpatient FAUSTINA FARFAN MD Via [facility] CARD CARDIAC IRRGULARITY,PAL PITATIONS [id number] 01/11/2016 08:49:00 016 23:59:59 CLS Outpatient ZAIDA ETIENNE MD Via [facility] LAB CAD, HYPERTENSION, MIXE D HYPERLIPIDEMIA [id number] 09/25/2015 11:56:00 015 14:40:00 DIS Outpatient ANN PERDOMO MD Via [facility] SDC SCREENING [id number] 09/23/2015 05:35:00 015 23:59:59 CLS Outpatient ANN PERDOMO MD Via [facility] PREOP SCREENING COLONOSCOPY [id number] 09/09/2015 11:44:00 015 23:59:59 CLS Outpatient FAUSTINA FARFAN MD Via [facility] RAD FLANK PAIN [id number] 06/03/2015 13:16:00 015 23:59:59 CLS Outpatient FAUSTINA FARFAN MD Via [facility] RT DYSPENA [id number] 07/02/2014 06:47:00 09/10/2 014 15:46:00 DIS Outpatient ZAIDA ETIENNE MD Via [facility] CATH ABNORMAL STRESS TEST, C AD,HTN, DM [id number] 06/25/2014 08:20:00 23:59:59 CLS Outpatient KULWINDER NUGENT Via [facility] CARD CAD,HTN,HLP [id number] 04/07/2014 07:37:00 23:59:59 CLS Outpatient KULWINDER NUGENT Via [facility] CARD CAD,HLP,HTN [id number] 02/25/2014 10:35:00 11:50:00 DIS Outpatient RACHEL KAUR DO Via [facility] WOUNDCARE WOUNDS ON UPPER BACK PO ST OP [id number] 11/28/2013 09:27:00 14:03:00 DIS Outpatient RACHEL KAUR DO Via [facility] SDC LESIONS ON BACK [id number] 11/25/2013 10:41:00 23:59:59 CLS Outpatient KAUR RACHEL PITTS Via [facility] PREOP LESIONS ON BACK [id number] 08/14/2013 10:13:00 11:45:00 DIS Inpatient FAUSTINA FARFAN MD Via [facility] 4TH CHEST PAIN BRONCHITIS/P OSSIBLE PNEUMONIA [id number] 08/06/2013 08:09:00 23:59:59 CLS Outpatient ZAIDA ETIENNE MD Via [facility] LAB CAD,HYPERTENSION,HYPERL IPIDEMIA [id number] 07/12/2013 11:57:00 13:09:00 DIS Outpatient ZAIDA ETIENNE MD Via [facility] CR CABG [id number] 05/01/2013 18:00:00 07:15:00 DIS Outpatient [id number] 10/26/2018 04:54:00 Document Registration
--- NOTE | 2020-05-14 20:27 | NUR ---
Dr. Lofton notified of Bradycardia (HR dipping down into the 20's per contract law specialist tech). VS currently at 37.0 - 47 - 20 - 119/62 96% RA. New order rec start NS at 80 mls/hr and notify Dr. Sepulveda. Addendum: 05/14/20 at 2248 by NOLAN RAUSCH RN also informed of pt running AFIB per Marketing Support Coordinator Tech in ICU.
[2020-05-14] MEDS: inSUlin ASPART (NovoLOG) 1 UNIT/0.01 ML (CHARGE PER UNIT) SC SCH (20:33)
--- NOTE | 2020-05-14 20:45 | NUR ---
Dr. Sepulveda notified of Bradycardia (HR dipping down into the 20's and currently running AFIB according to Field Crop Grower Tech in ICU). New order rec to Hold Norvasc for SBP < 120; Change Lovenox to 100mg SQ Q 12 Hrs to start at 0900 05/15; Give an additional dose of 60mg Lovenox SQ tonight to equal 100 mg total for this evening (ER gave 40mg SQ). Also, to notify if patient becomes symptomatic due to the bradycardia (pt currently asymptomatic). Will continue to monitor.
[2020-05-14] MEDS ORDERED: ENOXAPARIN 60 MG/0.6 ML (LOVENOX) SYR SC ONE (21:30)
[2020-05-14] MEDS: NS IV 1000 ML 1,000 ML IV SCH (21:50)
[2020-05-14 23:39] VITALS: BP 138/65
[2020-05-14] MEDS: ACETAMINOPHEN 325 MG TABLET PO PRN (23:47)
[2020-05-15 04:00] VITALS: BP 143/65
[2020-05-15 05:50] LABS: BASOPHILS % (AUTO) 0 % (0-10); EOSINOPHILS # (AUTO) 0.1 10^3/uL (0.0-0.3); EOSINOPHILS % (AUTO) 2 % (0-10); HEMATOCRIT 42 % (40-54); HEMOGLOBIN 14.4 G/DL (13.3-17.7); LYMPHOCYTES # (AUTO) 1.5 X 10^3 (1.0-4.0); LYMPHOCYTES % (AUTO) 30 % (12-44); MEAN CORPUSCULAR HEMOGLOBIN 31 PG (25-34); MEAN CORPUSCULAR HGB CONC 34 G/DL (32-36); MEAN CORPUSCULAR VOLUME 91 FL (80-99); MEAN PLATELET VOLUME 9.6 FL (7.4-10.4); MONOCYTES # (AUTO) 0.6 X 10^3 (0.0-1.0); MONOCYTES % (AUTO) 11 % (0-12); NEUTROPHILS # (AUTO) 2.9 X 10^3 (1.8-7.8); NEUTROPHILS % (AUTO) 57 % (42-75); PLATELET COUNT 197 10^3/uL (130-400); RED CELL DISTRIBUTION WIDTH 13.3 % (10.0-14.5); WHITE BLOOD COUNT 5.1 10^3/uL (4.3-11.0)
[2020-05-15 06:00] LABS: ALBUMIN 3.9 GM/DL (3.2-4.5)
[2020-05-15 06:01] LABS: CHLORIDE 107 MMOL/L (98-107); POTASSIUM 4.5 MMOL/L (3.6-5.0); SODIUM 141 MMOL/L (135-145)
[2020-05-15 06:02] LABS: CALCIUM 9.9 MG/DL (8.5-10.1)
[2020-05-15 06:03] LABS: GLUCOSE 94 MG/DL (70-105); TOTAL PROTEIN 6.3 GM/DL (6.4-8.2)
[2020-05-15 06:04] LABS: CARBON DIOXIDE 25 MMOL/L (21-32)
[2020-05-15 06:05] LABS: BILIRUBIN,TOTAL 0.6 MG/DL (0.1-1.0)
[2020-05-15 06:06] LABS: ALKALINE PHOSPHATASE 99 U/L (40-136)
[2020-05-15 06:07] LABS: CREATININE SERUM 1.07 MG/DL (0.60-1.30); GFR ESTIMATED > 60
[2020-05-15 06:08] LABS: BUN/CREATININE RATIO 17
[2020-05-15 06:09] LABS: ALANINE AMINOTRANSFERASE 22 U/L (0-55)
[2020-05-15] MEDS ORDERED: ENOXAPARIN 40 MG/0.4 ML (LOVENOX) SYR SC SCH ×2 (06:30→18:30)
[2020-05-15] MEDS: inSUlin ASPART (NovoLOG) 1 UNIT/0.01 ML (CHARGE PER UNIT) SC SCH ×4 (06:32→19:46)
--- NOTE | 2020-05-15 06:53 | History & Physicial ---
History of Present Illness History of Present Illness Reason for visit/HPI 84-year-old male presented to [facility] emergency department during the afternoon of May 14, 2020 with shortness of breath. He also has spells of lightheadedness with nearly passing out. Apparently he woke up in the morning of May 14 with increased shortness of breath or dyspnea. His who keeps track of him very carefully had noticed that his pulse rate was in the 50s. Patient is awake been very [place] and tries to maintain good physical activity as they have even been swimming at the [facility] up until the coronavirus pandemic. Patient denies any significant chest pain. Date of Admission May 14, 2020 at 18:12 Date Seen by a Provider: May 15, 2020 Time Seen by a Provider: 07:00 I consulted on this patient on 05/15/20 06:48 Attending Physician Bob Farfan MD Admitting Physician Bob Farfan MD Consult Allergies and Home Medications Allergies Coded Allergies: No Known Drug Allergies (Unverified , 05/01/13) Home Medications Amlodipine Besylate 10 Mg Tablet, 10 MG PO DAILY, (Reported) Aspirin 81 Mg Tab.chew, 81 MG PO DAILY, (Reported) Atorvastatin Calcium 20 Mg Tablet, 20 MG PO DAILY, (Reported) Fluticasone Propionate 9.9 Ml [place].susp, 1 SPRAY NSEACH DAILY, (Reported) Glimepiride 2 Mg Tablet, 2 MG PO DAILY, (Reported) Hydrochlorothiazide 25 Mg Tablet, 25 MG PO DAILY, (Reported) Lisinopril 40 Mg Tablet, 40 MG PO DAILY, (Reported) Metformin HCl 500 Mg Tablet, 500 MG PO BID WITH MEALS, (Reported) Tamsulosin HCl 0.4 Mg Cap.er.24h, 0.4 MG PO DAILY, (Reported) Daily until stone passage Patient Home Medication List Home Medication List Reviewed: Yes Past Cweuhpm-Bwzqoe-Qswnve Hx Patient Social History Marrital Status: Alcohol Use: Denies Use Recreational Drug Use: No Smoking Status: Never a Smoker Physical Abuse Screen: No Sexual Abuse: No Recent Foreign Travel: No Contact w/other who traveled: No Recent Hopitalizations: No Recent Infectious Disease Expo: No Immunizations Up To Date Tetanus Booster (TDap): More than 5yrs Pediatric: No Date of Pneumonia Vaccine: Jun 23, 2012 Date of Influenza Vaccine: Jul 22, 2018 Seasonal Allergies Seasonal Allergies: No Surgeries Yes (OPEN PROSTATE SURGERY, CATARACTS) Appendectomy, CABG Respiratory No Cardiovascular Yes (QUAD BYPASS) Coronary Artery Disease, Heart Attack, Hypertension Neurological No Reproductive System Hx Reproductive Disorders: No Sexually Transmitted Disease: No HIV/AIDS: No Genitourinary Yes Benign Prostatic Hyperpl, Kidney Stones Gastrointestinal Yes Gastroesophageal Reflux, Hemorrhoids Musculoskeletal Yes (history of fx ribs) Arthritis Endocrine History of Endocrine Disorders: Yes Endocrine Disorders: Diabetes, Non-Insulin dep HEENT History of HEENT Disorders: Yes HEENT Disorders: Cataract Loss of Vision: Denies Cancer Yes Melanoma Type of Treatment: Surgical Intervention Psychosocial History of Psychiatric Problem: Yes Behavioral Health Disorders: Depression Integumentary History of Skin or Integumenta: Yes (MELANOMA ON BACK REMOVED) Blood Transfusions History of Blood Disorders: No Review of Systems Constitutional: see HPI Physical Exam Vital Signs Vital Signs - First Documented 05/14/20 15:53 Temp 36.6 Pulse 54 Resp 16 B/P (MAP) 144/60 (88) Pulse Ox 99 O2 Delivery Room Air Capillary Refill : Less Than 3 Seconds Height, Weight, BMI Height: 5'11.00" Weight: 219lbs. 0.0oz. 99.321431xo; 33.19 BMI Method:Stated General Appearance: Anxious Eyes: Bilateral Eye Normal Inspection HEENT: Pharynx Normal Neck: Supple Comments NAME: VICTORIA VERAS MED REC#: [id number] PT STATUS: REG ER : 1935 PHYSICIAN: HIREN PICKENS MD ADMIT DATE: 05/14/20/ER Signed Date of Exam:05/14/20 CHEST 1 VIEW, AP/PA ONLY INDICATION: Shortness of air. COMPARISON: 07/02/2014. TECHNIQUE: Single radiograph of the chest dated 05/14/2020. FINDINGS: Post surgical changes of a CABG are again identified. The cardiac silhouette is enlarged, appearing minimally more prominent than in 2014. Minimal central pulmonary vascular congestion. The lungs are clear of focal pulmonary opacity. No significant pleural effusion. No pneumothorax. No acute osseous abnormality. IMPRESSION: Cardiomegaly and mild central pulmonary vascular congestion, increased since 2014, though there is no significant interstitial edema or pleural effusion. Dictated by: Dictated on workstation # [id number] Dict: 05/14/20 1635 Trans: 05/14/20 1725 [id number] Interpreted by: VIOLET ANNA MD Electronically signed by: VIOLET ANNA MD 05/14/20 1725 Assessment/Plan Assessment and Plan 1. Urinary tract infection -Patient has been worked up for sepsis with blood cultures. Initial laboratory reveals not sepsis -He is given Rocephin generic 1 g every day. Initial dose given in the ED 2. Dyspnea--probably multifactorial related to his bradycardia and urinary tract infection -Monitor 3. Bradycardia--chronic -Consultation with cardiology -Telemetry 4. Hypertensiontreated -Continue with amlodipine 5. Diabetes--late onset in adult -Insulin sliding scale Admission Diagnosis 1. Urinary tract infection 2. Dyspnea--probably multifactorial related to his bradycardia and urinary tract infection 3. Bradycardia--chronic 4. Hypertensiontreated 5. Diabetes--late onset in adult Admission Status: Inpatient Order (span 2 midnights) Reason for Inpatient Admission: Further monitoring of dyspnea and bradycardia. Initiation of IV antibiotics for urinary infection. Clinical Quality Measures DVT/VTE Risk/Contraindication: Risk Factor Score Per Nursin RFS Level Per Nursing on Admit: 2=Moderate BOB FARFAN MD May 15, 2020 06:53
[2020-05-15 08:00] VITALS: BP 128/75
--- NOTE | 2020-05-15 08:04 | Consultation-Cardiology ---
HPI-Cardiology Cardiology Consultation: Date of Consultation 05/15/20 Time Seen by a Provider: 09:30 Date of Admission 05-14-2020 Attending Physician Bob Lofton MD Admitting Physician Bob Lofton MD Consulting Physician Roxanna Hassan APRN, Valeria Ibanez MD Primary Outdoor Advertising Leasing Agent: Dr. Russ HPI: Chief Complaint: Bradycardia Mr. Veras is an 84 year old male admitted to 423 from the ED with c/o gen weakness. He reports yesterday he began to have generalized weakness and SOB which persisted throughout the day. He reports he told his to bring him to the ED. He reports occ episodes of dizziness with changes in position, but does not report any episodes recently. No c/o CP, syncope or near syncope. No c/o LE swelling. He reports he had his bring him to the ED where he was told he had a bladder infection. He states he has had a slow, irregular, heartbeat for over 10 years. He states he follows with Dr. Lofton and Dr. Russ. He currently states he feels better and wants to go home. He denies any n/v/d. He denies any fever or chills. His a limited historian and d/t COVID screening there is not family at the bedside. Review of Systems-Cardiology Review of Systems Constitutional: No chills, No fever; malaise Eyes: No vision change Ears/Nose/Throat: No epistaxis, No recent hearing loss Respiratory: As described under HPI Cardiovascular: As described under HPI Gastrointestinal: constipation (chronic); No diarrhea, No nausea, No vomiting Genitourinary: No dysuria, No hematuria Musculoskeletal: no symptoms reported Skin: No rash on exposed areas, No ulcerations on exposed areas Psychiatric/Neurological: No anxiety, No depression, No seizure, No focal weakness, No syncope Hematologic: No bleeding abnormalities All Other Systems Reviewed Negative Unless Noted: Yes OVI-Suyydc-Osyggq Hx Patient Social History Marrital Status: Alcohol Use: Denies Use Recreational Drug Use: No Smoking Status: Never a Smoker Recent Foreign Travel: No Recent Infectious Disease Expo: No Physical Abuse Screen: No Sexual Abuse: No Immunizations Up To Date Tetanus Booster (TDap): More than 5yrs Date of Pneumonia Vaccine: Jun 23, 2012 Date of Influenza Vaccine: Jul 22, 2018 Past Medical History PMH As described under Assessment. Family Medical History Family Medical History: Reported h/o of mother having CAD. Allergies and Home Medications Allergies Coded Allergies: No Known Drug Allergies (Unverified , 05/01/13) Home Medications Amlodipine Besylate 10 Mg Tablet, 10 MG PO DAILY, (Reported) Aspirin 81 Mg Tab.chew, 81 MG PO DAILY, (Reported) Atorvastatin Calcium 20 Mg Tablet, 20 MG PO DAILY, (Reported) Fluticasone Propionate 9.9 Ml [place].susp, 1 SPRAY NSEACH DAILY, (Reported) Glimepiride 2 Mg Tablet, 2 MG PO DAILY, (Reported) Hydrochlorothiazide 25 Mg Tablet, 25 MG PO DAILY, (Reported) Lisinopril 40 Mg Tablet, 40 MG PO DAILY, (Reported) Metformin HCl 500 Mg Tablet, 500 MG PO BID WITH MEALS, (Reported) Tamsulosin HCl 0.4 Mg Cap.er.24h, 0.4 MG PO DAILY, (Reported) Daily until stone passage Patient Home Medication List Home Medication List Reviewed: Yes Physical Exam-Cardiology Physical Exam Vital Signs/I&O 05/15/20 05/15/20 05/15/20 05/15/20 04:00 06:50 08:00 08:00 Temp 36.6 36.1 Pulse 42 39 51 Resp 18 16 B/P (MAP) 143/65 (91) 128/75 (92) Pulse Ox 97 94 96 O2 Delivery Room Air Room Air Room Air 05/15/20 05/15/20 11:17 12:32 Temp 36.3 Pulse 41 52 Resp 16 B/P (MAP) 130/66 (87) Pulse Ox 99 O2 Delivery Room Air 05/15/20 00:00 Intake Total 600 ml Output Total 500 ml Balance 100 ml Capillary Refill : Less Than 3 Seconds Constitutional: AAO x 3, well-developed, well-nourished HEENT: PERRL, hard of hearing, oral hygience is good Neck: No carotid bruit; carotid pulses are 2 + bilaterally Respiratory: No accessory muscle use, No respiratory distress; chest expansion is symmetric, chest is bilaterally symmetric, lungs clear to auscultation Cardiovascular: irregularly irregular; No JVD; bradycardia, S1 and S2, systolic murmur Gastrointestinal: No tender; soft, round, audible bowel sounds Extremities: no lower extremity edema bilateral Neurologic/Psychiatric: grossly intact (moves all extremities) Skin: No rash on exposed areas, No ulcerations on exposed areas Data Review Labs Laboratory Tests 05/14/20 16:00: White Blood Count 5.3, Red Blood Count 4.60, Hemoglobin 14.2, Hematocrit 42, Mean Corpuscular Volume 90, Mean Corpuscular Hemoglobin 31, Mean Corpuscular H emoglobin Concent 34, Red Cell Distribution Width 13.4, Platelet Count 195, Mean Platelet Volume 9.4, Neutrophils (%) (Auto) 63, Lymphocytes (%) (Auto) 26, Monocytes (%) (Auto) 10, Eosinophils (%) (Auto) 1, Basophils (%) (Auto) 1, Neutrophils # (Auto) 3.3, Lymphocytes # (Auto) 1.4, Monocytes # (Auto) 0.5, Eosinophils # (Auto) 0.1, Basophils # (Auto) 0.0, Erythrocyte Sedimentation Rate 6, Prothrombin Time 14.3, INR Comment 1.1, Activated Partial Thromboplast Time 30, D-Dimer 0.58H, Sodium Level 141, Potassium Level 4.3, Chloride Level 108H, Carbon Dioxide Level 24, Anion Gap 9, Blood Urea Nitrogen 21H, Creatinine 1.16, Estimat Glomerular Filtration Rate 60, BUN/Creatinine Ratio 18, Glucose Level 110H, Calcium Level 10.1, Corrected Calcium 10.1, Magnesium Level 2.3, Total Bilirubin 0.5, Aspartate Amino Transf (AST/SGOT) 25, Alanine Aminotransferase (ALT/SGPT) 24, Alkaline Phosphatase 116, Myoglobin 110.6H, Troponin I < 0.028, C-Reactive Protein High Sensitivity 0.15, B-Type Natriuretic Peptide 202.5H, Total Protein 6.4, Albumin 4.0, Thyroid Stimulating Hormone (TSH) 0.83 05/14/20 16:37: Urine Color YELLOW, Urine Clarity CLEAR, Urine pH 6.0, Urine Specific Tangent 1.020, Urine Protein NEGATIVE, Urine Glucose (UA) NEGATIVE, Urine Ketones NEGATIVE, Urine Nitrite NEGATIVE, Urine Bilirubin NEGATIVE, Urine Urobilinogen 1.0, Urine Leukocyte Esterase 2+H, Urine RBC (Auto) NEGATIVE, Urine RBC NONE, Urine WBC 50-100H, Urine Crystals NONE, Urine Bacteria MODERATEH, Urine Casts NONE, Urine Mucus NEGATIVE, Urine Culture Indicated YES 05/14/20 17:10: Lactic Acid Level 1.42 05/14/20 19:55: Glucometer 134H 05/15/20 05:33: White Blood Count 5.1, Red Blood Count 4.64, Hemoglobin 14.4, Hematocrit 42, Mean Corpuscular Volume 91, Mean Corpuscular Hemoglobin 31, Mean Corpuscular Hemoglobin Concent 34, Red Cell Distribution Width 13.3, Platelet Count 197, Mean Platelet Volume 9.6, Neutrophils (%) (Auto) 57, Lymphocytes (%) (Auto) 30, Monocytes (%) (Auto) 11, Eosinophils (%) (Auto) 2, Basophils (%) (Auto) 0, Neutrophils # (Auto) 2.9, Lymphocytes # (Auto) 1.5, Monocytes # (Auto) 0.6, Eosinophils # (Auto) 0.1, Basophils # (Auto) 0.0, Sodium Level 141, Potassium Level 4.5, Chloride Level 107, Carbon Dioxide Level 25, Anion Gap 9, Blood Urea Nitrogen 18, Creatinine 1.07, Estimat Glomerular Filtration Rate > 60, BUN/Creatinine Ratio 17, Glucose Level 94, Calcium Level 9.9, Corrected Calcium 10.0, Total Bilirubin 0.6, Aspartate Amino Transf (AST/SGOT) 24, Alanine Aminotransferase (ALT/SGPT) 22, Alkaline Phosphatase 99, Troponin I < 0.028, To luis enrique Protein 6.3L, Albumin 3.9 05/15/20 11:08: Glucometer 194H Radiology NAME: VICTORIA VERAS [employer] REC#: [id number] PT STATUS: REG ER : 1935 PHYSICIAN: HIREN PICKENS MD ADMIT DATE: 05/14/20/ER Signed Date of Exam:05/14/20 CHEST 1 VIEW, AP/PA ONLY INDICATION: Shortness of air. COMPARISON: 07/02/2014. TECHNIQUE: Single radiograph of the chest dated 05/14/2020. FINDINGS: Post surgical changes of a CABG are again identified. The cardiac silhouette is enlarged, appearing minimally more prominent than in 2014. Minimal central pulmonary vascular congestion. The lungs are clear of focal pulmonary opacity. No significant pleural effusion. No pneumothorax. No acute osseous abnormality. IMPRESSION: Cardiomegaly and mild central pulmonary vascular congestion, increased since 2013, though there is no significant interstitial edema or pleural effusion. Dictated by: Dictated on workstation # [id number] Dict: 05/14/20 1635 Trans: 05/14/20 1725 [id number] Interpreted by: VIOLET ANNA MD Electronically signed by: VIOLET ANNA MD 05/14/20 1725 ECG Impression ECG Comment Sinus elvis-arrhythmia with first degree AV block and RBBB A/P-Cardiology Assessment/Admission Diagnosis Chronic sinus node dysfunction, including sinus bradycardia (asymptomatic) Chronic trifascicular block (RBBB and LAFB) Intermittent Mobitz 1 AV block (asymptomatic) Pt has expressed a clear desire to be managed conservatively and empirically only UTI - management per medical services Coronary artery disease status post CABG x4 with ELMORE to LAD, vein graft to OM, vein graft to diagonal 1 and RCA on 05/03/[address] Robb at [facility]. Most recent cardiac catheterization on July 02, [address] Russ revealed patent bypass grafts with small vessel disease. He has refused any repeat stress test, 2-D echocardiogram, or left heart catheterization per Dr. Russ's office note of Jun 2019 LVEF 60% on echo of [address] Russ Hypertension H/o orthostatic hypotension Hyperlipidemia Obesity, BMI is 33 Diabetes mellitus, managed and monitored by primary care physician. History renal insufficiency Mild carotid artery stenosis-most recent carotid duplex done June 2019 TSH of May 15 - WNL Discussion and Recomendations Given lack of advanced AV block and any symptoms directly related to bradycardia and patient's clear desire to avoid any invasive procedure, he is not a candidate for pacemaker implantation Tele Because no distinct A Fib has been demonstrated, treatment with ASA alone appears adequate Continue DVT prophylaxis with low-dose enoxaparin Continue amlodipine. BB contraindicated Continue ASA d/t known h/o CAD with CABG in the past COVID PUI, management is with the Med Sv[facility] Management of UTI per medical services Monitor lab Replace electrolytes as indicated We would like to thank Medical services for this consult Clinical Quality Measures DVT/VTE Risk/Contraindication: Risk Factor Score Per Nursin RFS Level Per Nursing on Admit: 2=Moderate Physician Assessment Physician Assessment I reviewed and discussed the patient's case with HARRIETT Diallo. I reviewed his records with Dr Petrona. I have made changes to Assessment and Plan above that are indicated by italics ROXANNA HASSAN HEMATOLOGY TECHNICIAN May 15, 2020 08:04 VALERIA MORAN MD FACP FACC CCDS May 15, 2020 14:41
[2020-05-15] MEDS ORDERED: ENOXAPARIN 100 MG/1 ML (LOVENOX) SYR SC SCH (09:00)
[2020-05-15] MEDS ORDERED: amLODIPine 10 MG (NORVASC) TAB PO SCH (09:00)
[2020-05-15] MEDS ORDERED: ASPIRIN E.C. 81 MG (ECOTRIN) TAB PO SCH (09:00)
[2020-05-15] MEDS: NS IV 1000 ML 1,000 ML IV SCH ×2 (09:31→21:04)
[2020-05-15 11:17] VITALS: BP 130/66
[2020-05-15] MEDS: ALPRAZolam 0.25 MG (XANAX) TAB PO PRN ×2 (12:08→21:04)
[2020-05-15 15:30] VITALS: BP 146/74
--- NOTE | 2020-05-15 16:19 | NUR ---
DR FARFAN NOTIFIED OF PT BEING NEGATIVE FOR COVID, RECEIVED ORDERS FOR PT TO BE TRANSFERRED OUT OF ISOLATION. HE WILL BE GOING TO ROOM 414. PTS , SHANTA VERAS, NOTIFIED OF THIS WELL.
[2020-05-15] MEDS: cefTRIAXone 1,000 MG/SWFI 10 ML IV PUSH IV SCH ×2 (18:07)
--- NOTE | 2020-05-15 18:44 | NUR ---
PTS BROUGHT IN HOME MEDICATIONS. RN LAST NIGHT HAD REVIEWED MEDS AND DR FARFAN ORDERED THAT PT COULD TAKE MEDICATIONS FROM HOME. MEDICATIONS SENT FROM PHARMACY
[2020-05-15] MEDS ORDERED: PATIENT MAY USE OWN MEDS, ALL MC SCH (18:45)
[2020-05-15 20:00] VITALS: BP 158/83
[2020-05-15] MEDS: ACETAMINOPHEN 325 MG TABLET PO PRN (21:04)
[2020-05-16 00:30] VITALS: BP 147/75
[2020-05-16 04:40] VITALS: BP 138/62
[2020-05-16] MEDS: inSUlin ASPART (NovoLOG) 1 UNIT/0.01 ML (CHARGE PER UNIT) SC SCH ×5 (06:05→21:17)
[2020-05-16 08:00] VITALS: BP 120/52
[2020-05-16] MEDS: ASPIRIN E.C. 81 MG (ECOTRIN) TAB PO SCH (09:02)
[2020-05-16] MEDS: NS IV 1000 ML 1,000 ML IV SCH ×2 (09:06→21:46)
[2020-05-16] MEDS: amLODIPine 10 MG (NORVASC) TAB PO SCH (09:07)
--- NOTE | 2020-05-16 09:07 | NUR ---
ANMOLC HELD. JB=629/58 P=44
[2020-05-16] MEDS ORDERED: ENOXAPARIN 40 MG/0.4 ML (LOVENOX) SYR SC SCH (10:30)
[2020-05-16 12:00] VITALS: BP 126/62
--- NOTE | 2020-05-16 12:18 | Progress Note - Hospitalist ---
Subjective HPI/CC On Admission Date Seen by Provider: May 16, 2020 Time Seen by Provider: 11:00 Subjective/Events-last exam Patient currently without significant complaint. He is very talkative this morning. Would like for the gizzard puller to discuss plans with his daughter. We discussed that his heart rate drops low and it may be that he would require a pacemaker. He seems to be more interested in that this morning, the notes reflect, that he had been in the past. He has no new complaints this morning but I notice he is dyspneic walking Review of Systems Pulmonary: Dyspnea Neurological: Weakness, Confusion Focused Exam Lactate Level 05/14/20 17:10: Lactic Acid Level 1.42 Objective Exam Vital Signs Vital Signs Date Time Temp Pulse Resp B/P (MAP) Pulse Ox O2 Delivery O2 Flow Rate FiO2 05/16/20 16:01 36.7 52 16 103/62 (76) 97 Room Air Capillary Refill : Less Than 3 Seconds General Appearance: Chronically ill Neck: Limited Range of Motion Respiratory: Chest Non Tender, Lungs Clear, Normal Breath Sounds, No Respiratory Distress Cardiovascular: Bradycardia, Systolic Murmur, Extra Beats Gastrointestinal: Normal Bowel Sounds, No Organomegaly, No Pulsatile Mass, Soft Rectal: Deferred Extremity: Pedal Edema Neurologic/Psychiatric: Alert, No Motor/Sensory Deficits, Normal Mood/Affect Skin: Normal Color Results/Procedures Lab Patient resulted labs reviewed. Assessment/Plan Assessment and Plan Assess & Plan/Chief Complaint Urinary tract infection-culture shows mixed organisms- on Rocephin Near syncope with bradycardia-possibly necessitating a pacemaker Coronary artery disease with no wishes for further intervention Obesity Mild confusion Plan per cardiology may benefit from physical therapy as well as pacemaker Clinical Quality Measures DVT/VTE Risk/Contraindication: Risk Factor Score Per Nursin RFS Level Per Nursing on Admit: 2=Moderate AMBER ORTIZ MD May 16, 2020 12:17
--- NOTE | 2020-05-16 14:07 | Progress Note - Cardiology ---
Cardiology SOAP Progress Note Subjective: No cp or palp or syncope Notes shortness of breath with exertion Notes gen malaise and weakness and lack of energy Denies n/v/d Denies focal weakness Objective: I&O/Vital Signs 05/16/20 05/16/20 05/16/20 05/16/20 04:40 07:00 08:00 08:00 Temp 36.4 36.6 Pulse 49 37 58 Resp 20 18 B/P (MAP) 138/62 (87) 120/52 (74) Pulse Ox 99 99 O2 Delivery Room Air Room Air Room Air 05/16/20 05/16/20 12:00 13:02 Temp 36.1 Pulse 45 50 Resp 20 B/P (MAP) 126/62 (83) Pulse Ox 100 O2 Delivery Room Air 05/16/20 00:00 Intake Total 910 ml Output Total 625 ml Balance 285 ml Weight (Pounds): 219 Weight (Ounces): 0.0 Weight (Calculated Kilograms): 99.024245 Constitutional: AAO x 3, well-developed, well-nourished Respiratory: No accessory muscle use, No respiratory distress; chest expansion is symmetric, chest is bilaterally symmetric, lungs clear to auscultation Cardiovascular: irregularly irregular; No JVD; bradycardia, S1 and S2, systolic murmur Gastrointestional: No tender; soft, round, audible bowel sounds Extremities: no lower extremity edema bilateral Neurologic/Psychiatric: grossly intact (moves all extremities) Skin: No rash on exposed areas, No ulcerations on exposed areas Results/Procedures: Labs Laboratory Tests 05/15/20 14:57: Glucometer 137H 05/15/20 15:57: Glucometer 133H 05/15/20 19:10: Glucometer 173H 05/16/20 05:41: Glucometer 101 05/16/20 10:20: Glucometer 157H Microbiology 05/14/20 Blood Culture - Preliminary, Resulted No growth 05/14/20 Urine Culture - Final, Complete Gram Pos Mixed Bacterial Priscila Laboratory Tests 05/14/20 16:00 05/15/20 05:33 A/P: Assessment: Chronic sinus node dysfunction, including sinus bradycardia and Intermittent Mobitz 1 AV block and exhibiting pauses of up to 3 sec during this hospitalization Chronic trifascicular block (RBBB and LAFB) Symptoms of exertional shortness of breath and gen weakness and malaise may be related to low resting heart rate and inadequate heart rate response to activity UTI - management per Medical services Coronary artery disease status post CABG x4 with ELMORE to LAD, vein graft to OM, vein graft to diagonal 1 and RCA on 05/03/[address] Robb at [facility]. Most recent cardiac catheterization on July 02, [address] Russ revealed patent bypass grafts with small vessel disease. He has refused any repeat stress test, 2-D echocardiogram, or left heart catheterization per Dr. Russ's office note of Jun 2019 LVEF 60% on echo of [address] Russ Hypertension H/o orthostatic hypotension Hyperlipidemia Obesity, BMI is 33 Diabetes mellitus, managed and monitored by primary care physician. History renal insufficiency Mild carotid artery stenosis-most recent carotid duplex done June 2019 TSH of May 15 - WNL COVID-negative on 05/14/20 Plan: I had a long and detailed discussion with the patient, in the presence of his , today. He is exhibiting considerable bradycardia and there appears to be symptomatic component to it, too (see above). Permanent pacemaker implantation needs to be considered. He had previously refused. Today, after a detailed conversation, he states he will consider and let us know of his decision Continue amlodipine. BB contraindicated Continue ASA d/t known h/o CAD with CABG in the past Management of UTI per medical services Monitor labs CASSIE MORAN MD FACP [facility] CCDS May 16, 2020 14:07
[2020-05-16 16:01] VITALS: BP 103/62
[2020-05-16] MEDS: cefTRIAXone 1,000 MG/SWFI 10 ML IV PUSH IV SCH ×2 (17:20)
[2020-05-16 19:39] VITALS: BP 114/62
[2020-05-17] VITALS (16 sets, daily range): BP systolic 129–173; BP diastolic 61–90
[2020-05-17] MEDS: inSUlin ASPART (NovoLOG) 1 UNIT/0.01 ML (CHARGE PER UNIT) SC SCH ×4 (06:34→20:38)
[2020-05-17] MEDS: ASPIRIN E.C. 81 MG (ECOTRIN) TAB PO SCH (08:46)
[2020-05-17] MEDS: amLODIPine 10 MG (NORVASC) TAB PO SCH (08:46)
[2020-05-17] MEDS ORDERED: VANCOMYCIN INJECTION 0.1 MG in NS (IVPB) 250 ML IV SCH (10:00)
[2020-05-17] MEDS ORDERED: VANCOMYCIN 2000 MG/NS 500 ML IVPB IV NR ×2 (10:11)
--- NOTE | 2020-05-17 10:19 | NUR ---
PTD Vancomycin - Loading Dose: 2gm IV over 2 hours x 1, then Maint. Dose; 1250mg IV every 12 hours.
--- NOTE | 2020-05-17 11:53 | Progress Note - Hospitalist ---
Subjective HPI/CC On Admission Date Seen by Provider: May 17, 2020 Time Seen by Provider: 11:00 Subjective/Events-last exam Patient is sitting in a chair and other than feeling a little foggy he says he would like to proceed with the pacemaker. I was called by micro-and the third blood culture came up with coag-negative staph. In an abundance of caution this will be cultured and sensitivities run and I will start him on vancomycin since he is probably going to get a pacemaker today. Review of Systems Neurological: Weakness, Other (Forgetfulness) Focused Exam Lactate Level 05/14/20 17:10: Lactic Acid Level 1.42 Objective Exam Vital Signs Vital Signs Date Time Temp Pulse Resp B/P (MAP) Pulse Ox O2 Delivery O2 Flow Rate FiO2 05/17/20 08:26 36.5 71 20 161/68 (99) 98 Room Air Capillary Refill : Less Than 3 Seconds General Appearance: No Apparent Distress, WD/WN HEENT: Normal ENT Inspection Neck: Limited Range of Motion Respiratory: Chest Non Tender, Lungs Clear, Normal Breath Sounds, No Accessory Muscle Use, No Respiratory Distress Cardiovascular: Bradycardia, Systolic Murmur, Irregularly Irregular Gastrointestinal: Normal Bowel Sounds, Non Tender, Soft Rectal: Deferred Extremity: Normal Capillary Refill, Normal Inspection, Pedal Edema Results/Procedures Lab Patient resulted labs reviewed. Assessment/Plan Assessment and Plan Assess & Plan/Chief Complaint Urinary tract infection-culture shows mixed organisms- on Rocephin, blood cultures show coag negative staph 3-we'll start vancomycin Near syncope with bradycardia-and long-term sinus pauses with atrial fibrillation-pacemaker placement Coronary artery disease with no wishes for further intervention Obesity Mild confusion Plan per cardiology may benefit from physical therapy as well as pacemaker Clinical Quality Measures DVT/VTE Risk/Contraindication: Risk Factor Score Per Nursin RFS Level Per Nursing on Admit: 2=Moderate AMBER ORTIZ MD May 17, 2020 11:53
[2020-05-17] MEDS: NS IV 1000 ML 1,000 ML IV SCH ×2 (12:20→22:50)
[2020-05-17] MEDS ORDERED: MIDAZOLAM 5 MG/5 ML (VERSED) VIAL ONE (12:55)
[2020-05-17] MEDS ORDERED: ceFAZolin INJECTION 1,000 MG ONE (12:55)
[2020-05-17] MEDS ORDERED: fentaNYL INJECTION 100 MCG/2 ML AMP ONE (12:55)
[2020-05-17] MEDS ORDERED: LIDOCAINE 1% INJ 20 ML 20 ML VIAL ONE (12:55)
[2020-05-17] MEDS ORDERED: NS (IVPB) 100 ML ONE (12:55)
[2020-05-17] MEDS ORDERED: NS IV 1000 ML 0 ML ONE (12:56)
[2020-05-17] MEDS ORDERED: HEParin (CATH LAB) 1,000 ML IV ONE (12:56)
[2020-05-17] MEDS ORDERED: BACITRACIN 50000 UNITS/500 ML NS IR ONE ×2 (13:00)
[2020-05-17] MEDS ORDERED: BACITRACIN INJECTION 50,000 UNIT, SODIUM CHLORIDE 0.9% IRRIGATIO 500 ML IR ONE ×2 (13:00)
[2020-05-17] MEDS ORDERED: NEO/POLY/BAC (NEOSPORIN) OINT 15 GM TUBE ONE (13:05)
--- NOTE | 2020-05-17 13:35 | NUR ---
Patient taken for procedure at this time.
--- NOTE | 2020-05-17 13:49 | Progress Note - Cardiology ---
Cardiology SOAP Progress Note Subjective: Continuing weakness and malaise Gets short of breath just going to the bathroom No syncope, but has considerable dizziness and now recalls some episodes of near-syncope in the recent past No cp or palp Objective: I&O/Vital Signs 05/17/20 05/17/20 05/17/20 05/17/20 04:00 07:00 08:00 08:26 Temp 36.1 36.5 Pulse 41 44 71 Resp 18 20 B/P (MAP) 173/82 (112) 161/68 (99) Pulse Ox 97 98 98 O2 Delivery Room Air Room Air Room Air 05/17/20 05/17/20 12:02 12:32 Temp 36.2 Pulse 59 35 Resp 16 B/P (MAP) 129/61 (83) Pulse Ox 97 O2 Delivery Room Air 05/17/20 00:00 Intake Total 2350 ml Balance 2350 ml Weight (Pounds): 219 Weight (Ounces): 0.0 Weight (Calculated Kilograms): 99.471030 Constitutional: AAO x 3, well-developed, well-nourished Respiratory: No accessory muscle use, No respiratory distress; chest expansion is symmetric, chest is bilaterally symmetric, lungs clear to auscultation Cardiovascular: irregularly irregular; No JVD; bradycardia, S1 and S2, systolic murmur Gastrointestional: No tender; soft, round, audible bowel sounds Extremities: no lower extremity edema bilateral Neurologic/Psychiatric: grossly intact (moves all extremities) Skin: No rash on exposed areas, No ulcerations on exposed areas Results/Procedures: Labs Laboratory Tests 05/16/20 14:40: Glucometer 207H 05/16/20 19:48: Glucometer 162H 05/17/20 06:11: Glucometer 126H 05/17/20 09:11: Glucometer 169H Microbiology 05/14/20 Blood Culture - Preliminary, Resulted Staph, Coag Neg (ASPHALT WORKER) 05/14/20 Urine Culture - Final, Complete Gram Pos Mixed Bacterial Priscila A/P: Assessment: Chronic sinus node dysfunction, including sinus bradycardia and Intermittent Mobitz 1 AV block and exhibiting pauses of up to 3 sec during this hospitalization Chronic trifascicular block (RBBB and LAFB) Symptoms of exertional shortness of breath and gen weakness and malaise probably related to low resting heart rate and inadequate heart rate response to activity UTI - management per Medical services Coronary artery disease status post CABG x4 with ELMORE to LAD, vein graft to OM, vein graft to diagonal 1 and RCA on 05/03/[address] Robb at [facility]. Most recent cardiac catheterization on July 02, [address] Russ revealed patent bypass grafts with small vessel disease. He has refused any repeat stress test, 2-D echocardiogram, or left heart catheterization per Dr. Russ's office note of Jun 2019 LVEF 60% on echo of [address] Russ Hypertension H/o orthostatic hypotension Hyperlipidemia Obesity, BMI is 33 Diabetes mellitus, managed and monitored by primary care physician. History renal insufficiency Mild carotid artery stenosis-most recent carotid duplex done June 2019 TSH of May 15 - WNL COVID-negative on 05/14/20 Plan: I again detailed discussion with the patient, in the presence of his , today. He is exhibiting considerable bradycardia and there appears to be symptomatic component to it, too (see above). He wishes to proceed with perm pacemaker. Rationale, procedure, risks, potential complications, and alternatives reviewed in detail. he understands and wishes to proceed Continue amlodipine. BB contraindicated Continue ASA d/t known h/o CAD with CABG in the past Management of UTI per medical services Monitor labs CASSIE MORAN MD FACP FAC CCDS May 17, 2020 13:49
[2020-05-17] MEDS ORDERED: ceFAZolin INJECTION 1,000 MG VIAL IV ONE (15:15)
[2020-05-17] MEDS ORDERED: NS IV 1000 ML 1,000 ML IV SCH (15:26)
[2020-05-17] MEDS ORDERED: PATIENT MAY USE OWN MEDS, ALL PO SCH (15:30)
[2020-05-17] MEDS ORDERED: ACETAMINOPHEN 325 MG TABLET PO PRN (16:00)
[2020-05-17] MEDS: cefTRIAXone 1,000 MG/SWFI 10 ML IV PUSH IV SCH ×2 (17:41)
--- NOTE | 2020-05-17 17:53 | Diagnostic Imaging Report ---
INDICATION: Post cardiac device placement. EXAMINATION: Chest, 05/17/2020. COMPARISON: 05/14/2020. FINDINGS: 2 view chest demonstrates left-sided pacemaker. The visualized aspects are intact with distal leads not well seen. Sternotomy wires noted. There is cardiomegaly. The pulmonary vasculature is congested. Findings of possible mild edema within the lungs with no focal effusion or pneumothorax. IMPRESSION: Questioned mild pulmonary edema with other findings as above. Dictated by: Dictated on workstation # [id number]
--- NOTE | 2020-05-17 19:52 | OPERATIVE REPORT ---
DATE OF SERVICE: 05/17/2020 PREOPERATIVE DIAGNOSIS: Sinus node dysfunction with intermittent profound bradycardia (symptomatic). POSTOPERATIVE DIAGNOSIS: Sinus node dysfunction with intermittent profound bradycardia (symptomatic). PROCEDURE: Dual chamber pacemaker implantation. ESTIMATED BLOOD LOSS: Less than 10 mL. Informed consent was obtained. He was brought to the cardiac catheterization laboratory. The site of the axillary and subclavian vein was marked with ultrasound. The skin was prepared and draped in the usual sterile fashion. Lidocaine 1% was used for local anesthesia. Modified Seldinger technique was used to advance two guidewires into the thoracic portion of the axillary vein and the tips of the wires were placed in the right atrium. Sharp and blunt dissection was used to make a pacemaker pocket in the left prepectoral region. Good hemostasis was assured. The pocket was packed with gauze soaked in an antibiotic solution. The guidewires were used to advance sheaths and the wires were removed. The sheaths were used to advance leads and the sheaths were removed. All lead manipulation was carried out under fluoroscopy. Active fixation leads were used. The ventricular lead was placed at the high right ventricular septum. The atrial lead was placed at the right atrial appendage. Lead impedance was normal at both sides. The patient was in atrial flutter at the time of the procedure. R waves were measured at greater than 8 millivolts. Lead impedance was normal. Capture threshold was 0.9 volts at 0.5 milliseconds. The atrial lead exhibited normal impedance. The flutter waves are measured at greater than 4 millivolts. Capture threshold could not be performed because of atrial flutter. Both leads were tested at 10 volts. There was no diaphragmatic stimulation. The leads were sutured to the prepectoral fascia using sleeves and 0 Ethibond. The leads were then attached to a dual chamber pacemaker and the pacemaker and the leads were placed in the pocket and the pocket was closed in two layers using 3.0 Vicryl. The leads are [employer] model 2088TC/52, with serial #[id number] in the right atrium and model 2088TC/58, with serial #[id number] in the right ventricle. The pulse generator is [employer] model #UO1643 with serial #[id number]. The patient tolerated the procedure well and was transferred out of the cardiac catheterization laboratory in a stable condition. Job ID: [id number] DocumentID: [id number] Dictated Date: 05/17/2020 15:20:52 Entomology Professor Date: 05/17/2020 19:51:59 Dictated By: CASSIE MORAN MD, MA, FACP, FACC,
[2020-05-17] MEDS: APIXABAN 2.5 MG (ELIQUIS) TABLET PO SCH (20:44)
[2020-05-17] MEDS: ceFAZolin INJECTION 1,000 MG in WATER (STERILE) FOR INJECTION 10 ML IV SCH (20:45)
[2020-05-17] MEDS ORDERED: VANCOMYCIN 1250 MG/NS 250 ML IVPB IV SCH ×2 (23:00)
[2020-05-18 00:47] VITALS: BP 158/80
[2020-05-18 04:36] VITALS: BP 160/80
[2020-05-18] MEDS: inSUlin ASPART (NovoLOG) 1 UNIT/0.01 ML (CHARGE PER UNIT) SC SCH ×2 (06:03→10:09)
[2020-05-18] MEDS: ceFAZolin INJECTION 1,000 MG in WATER (STERILE) FOR INJECTION 10 ML IV SCH (06:06)
[2020-05-18 06:20] LABS: HEMOGLOBIN 15.2 G/DL (13.3-17.7); MEAN PLATELET VOLUME 9.3 FL (7.4-10.4); RED CELL DISTRIBUTION WIDTH 13.8 % (10.0-14.5)
[2020-05-18 06:31] LABS: ALBUMIN 3.9 GM/DL (3.2-4.5); CHLORIDE 108 MMOL/L (98-107); POTASSIUM 4.3 MMOL/L (3.6-5.0); SODIUM 139 MMOL/L (135-145)
[2020-05-18 06:32] LABS: CALCIUM 9.4 MG/DL (8.5-10.1)
[2020-05-18 06:33] LABS: GLUCOSE 153 MG/DL (70-105); TOTAL PROTEIN 6.2 GM/DL (6.4-8.2)
[2020-05-18 06:34] LABS: CARBON DIOXIDE 23 MMOL/L (21-32)
[2020-05-18 06:35] LABS: BILIRUBIN,TOTAL 0.4 MG/DL (0.1-1.0)
[2020-05-18 06:37] LABS: ALKALINE PHOSPHATASE 93 U/L (40-136); CREATININE SERUM 1.11 MG/DL (0.60-1.30); GFR ESTIMATED > 60
[2020-05-18 06:38] LABS: BUN/CREATININE RATIO 15
[2020-05-18 06:40] LABS: ALANINE AMINOTRANSFERASE 61 U/L (0-55)
--- NOTE | 2020-05-18 06:55 | Progress Note ---
Subjective Date Seen by a Provider: May 18, 2020 Time Seen by a Provider: 07:00 Subjective/Events-last exam Patient communicating well this am. A little confused still but "normal" for him. Objective Exam Vital Signs Date Time Temp Pulse Resp B/P (MAP) Pulse Ox O2 Delivery O2 Flow Rate FiO2 05/18/20 04:36 36.8 75 20 160/80 (106) 97 Room Air 05/18/20 01:00 69 05/18/20 00:47 36.8 70 21 158/80 (106) 97 Room Air 05/17/20 23:00 99 Room Air 05/17/20 21:35 70 18 145/90 (108) 99 Room Air 05/17/20 20:35 36.5 70 18 138/76 (96) 99 Room Air 05/17/20 20:00 Room Air 05/17/20 19:35 36.5 70 18 135/75 (95) 97 Room Air 05/17/20 19:00 70 05/17/20 18:35 72 20 144/87 (106) 05/17/20 18:05 71 20 149/81 (103) 05/17/20 17:35 36.3 71 20 143/81 (101) 05/17/20 17:03 36.4 70 20 146/90 (108) 99 Room Air 05/17/20 16:48 36.4 70 20 132/81 (98) 97 Room Air 05/17/20 16:34 36.2 70 20 142/84 (103) 97 Room Air 05/17/20 16:18 36.1 69 18 140/82 (101) 94 Room Air 05/17/20 15:59 36.2 69 20 130/83 (99) 98 Room Air 05/17/20 12:32 35 05/17/20 12:02 36.2 59 16 129/61 (83) 97 Room Air 05/17/20 08:26 36.5 71 20 161/68 (99) 98 Room Air 05/17/20 08:00 98 Room Air 05/17/20 07:00 44 I & O 05/18/20 07:00 Intake Total 1230 ml Output Total 825 ml Balance 405 ml Capillary Refill : Less Than 3 Seconds General Appearance: No Apparent Distress HEENT: Pharynx Normal Neck: Supple Respiratory: Lungs Clear Cardiovascular: Regular Rate, Rhythm (at 70bpm) Results Lab Laboratory Tests 05/17/20 09:11: Glucometer 169H 05/17/20 16:05: Glucometer 109 05/17/20 20:00: Glucometer 165H 05/18/20 05:49: Glucometer 148H 05/18/20 06:07: White Blood Count 6.0, Red Blood Count 4.92, Hemoglobin 15.2, Hematocrit 45, Mean Corpuscular Volume 91, Mean Corpuscular Hemoglobin 31, Mean Corpuscular Hemoglobin Concent 34, Red Cell Distribution Width 13.8, Platelet Count 191, Mean Platelet Volume 9.3, Sodium Level 139, Potassium Level 4.3, Chloride Level 108H, Carbon Dioxide Level 23, Anion Gap 8, Blood Urea Nitrogen 17, Creatinine 1.11, Estimat Glomerular Filtration Rate > 60, BUN/Creatinine Ratio 15, Glucose Level 153H, Calcium Level 9.4, Corrected Calcium 9.5, Total Bilirubin 0.4, Aspartate Amino Transf (AST/SGOT) 52H, Alanine Aminotransferase (ALT/SGPT) 61H, Alkaline Phosphatase 93, Total Protein 6.2L, Albumin 3.9 Microbiology 05/14/20 Blood Culture - Preliminary, Resulted Staph, Coag Neg (PRIMING MIXTURE CARRIER) 05/14/20 Urine Culture - Final, Complete Gram Pos Mixed Bacterial Priscila Assessment/Plan Assessment/Plan Assess & Plan/Chief Complaint 1. Urinary tract infection-culture shows mixed organisms- on Rocephin, blood cultures show coag negative staph 3 -Vanc started 05/17 -on ceftriaxone as well 2. Bradycardia -Cardiology following and pacemacker placed yesterday. Appears to be tolerating well. 3. Near syncope with bradycardia-and long-term sinus pauses with atrial fibrillation-pacemaker placement 4. Coronary artery disease with no wishes for further intervention 5. Obesity Clinical Quality Measures Admission Status Admission Dx 1. Urinary tract infection 2. Dyspnea--probably multifactorial related to his bradycardia and urinary tract infection 3. Bradycardia--chronic 4. Hypertensiontreated 5. Diabetes--late onset in adult DVT/VTE Risk/Contraindication: Risk Factor Score Per Nursin RFS Level Per Nursing on Admit: 2=Moderate FAUSTINA FARFAN MD May 18, 2020 06:55
[2020-05-18 07:30] VITALS: BP 132/76
[2020-05-18] MEDS ORDERED: CEFU500T63 PO (08:31)
[2020-05-18] MEDS ORDERED: APIX2.5T PO (08:31)
[2020-05-18] MEDS: amLODIPine 10 MG (NORVASC) TAB PO SCH (08:32)
[2020-05-18] MEDS: APIXABAN 2.5 MG (ELIQUIS) TABLET PO SCH (08:32)
[2020-05-18] MEDS: ASPIRIN E.C. 81 MG (ECOTRIN) TAB PO SCH (08:32)
--- NOTE | 2020-05-18 09:04 | Discharge Inst-Simple/Standard ---
Discharge Inst-Standard Reconcile Patient Problems Problems Reviewed?: Yes Discharge Medications New, Converted or Re-Newed RX: Transmitted to Pharmacy ([facility]) Patient Instructions/Follow Up Plan of Care/Instructions/FU: Dr Farfan in 1 week Activity as Tolerated: Yes Discharge Diet: Low Sodium Diet, Low Fat/Low Cholesterol Return to The Hospital For: Worsening dizziness, Chest pain, Fever greater than 101 FAUSTINA FARFAN MD May 18, 2020 09:04
--- NOTE | 2020-05-18 09:07 | Discharge Summary ---
Diagnosis/Chief Complaint Date of Admission May 14, 2020 at 18:12 Date of Discharge May 18, 2020 Discharge Date: May 18, 2020 Discharge Time: 10:00 Admission Diagnosis Admission Diagnosis 1 Discharge Diagnosis 1 Reason Hospital Visit 84-year-old male presented to [facility] emergency department during the afternoon of May 14, 2020 with shortness of breath. He also has spells of lightheadedness with nearly passing out. Apparently he woke up in the morning of May 14 with increased shortness of breath or dyspnea. His who keeps track of him very carefully had noticed that his pulse rate was in the 50s. Patient is awake been very [place] and tries to maintain good physical activity as they have even been swimming at the [facility] up until the coronavirus pandemic. Patient denies any significant chest pain. Discharge Summary Hospital Course Was the Problem List Reviewed?: Yes Hospital Course Initially admitted with UTI and placed on ceftriaxone Labs Laboratory Tests 05/15/20 11:08: Glucometer 194H 05/15/20 14:57: Glucometer 137H 05/15/20 15:57: Glucometer 133H 05/15/20 19:10: Glucometer 173H 05/16/20 05:41: 05/16/20 10:20: Glucometer 157H 05/16/20 14:40: Glucometer 207H 05/16/20 19:48: Glucometer 162H 05/17/20 06:11: Glucometer 126H 05/17/20 09:11: Glucometer 169H 05/17/20 16:05: 05/17/20 20:00: Glucometer 165H 05/18/20 05:49: Glucometer 148H 05/18/20 06:07: Chloride Level 108H, Glucose Level 153H, Aspartate Amino Transf (AST/SGOT) 52H, Alanine Aminotransferase (ALT/SGPT) 61H, Total Protein 6.2L Procedures 1. Pacemaker placement (Dr Sepulveda) Consultations 1. Dr Sepulveda (cardiology) Discharge Physical Examination Allergies: Coded Allergies: No Known Drug Allergies (Unverified , 05/01/13) Vitals & I&Os Vital Signs Date Time Temp Pulse Resp B/P (MAP) Pulse Ox O2 Delivery O2 Flow Rate FiO2 05/18/20 08:26 97 Room Air 05/18/20 07:30 36.8 71 18 132/76 (94) General Appearance: No Acute Distress Respiratory: Clear to Auscultation Cardiovascular: Regular Rate Abdominal: Soft Skin: No Rashes Neuro: Normal Speech Discharge Home Medications Reviewed and agree with Discharge Medication list on patient's Discharge Instruction sheet Instructions to Patient/Family Please see electronic discharge instructions given to patient. Clinical Quality Measures DVT/VTE Risk/Contraindication: Risk Factor Score Per Nursin RFS Level Per Nursing on Admit: 2=Moderate FAUSTINA FARFAN MD May 18, 2020 09:07
--- NOTE | 2020-05-18 09:56 | Physical Therapy Evaluation ---
PT Evaluation-General Medical Diagnosis Admission Date May 14, 2020 at 18:12 Medical Diagnosis: UTI Onset Date: May 14, 2020 Therapy Diagnosis Therapy Diagnosis: debility/weakness Height/Weight Height (Feet): 5 Height (Inches): 11.00 Weight (Pounds): 219 Weight (Ounces): 0.0 Precautions Precautions/Isolations: Fall Prevention, Standard Precautions Referral Physician: Palak Reason for Referral: Evaluation/Treatment Medical History Pertinent Medical History: Atrial Fib, CABG, CAD, DM, HTN Current History ER secondary to SOA and s/p pacemaker Reviewed History: Yes Social History Home: Single Level Current Living Status: Spouse Prior Prior Level of Function SCALE: Activities may be completed with or without assistive devices. 9-Veghpvrpdc-bsojuek completes the activity by him/herself with no assistance from a helper. 5-Set-up or Clean-up Assistance-helper sets up or cleans up; patient completes activity. [place] assists only prior to or following the activity. 4-Supervision or Touching Assistance-helper provides verbal cues and/or touching/steadying and/or contact guard assistance as patient completes activity. Assistance may be provided throughout the activity or intermittently. 3-Partial/Moderate Assistance-helper does LESS THAN HALF the effort. [place] lifts, holds or supports trunk or limbs, but provides less than half the effort. 2-Substantial/Maximal Assistance-helper does MORE THAN HALF the effort. [place] lifts or holds trunk or limbs and provides more than half the effort. 9-Xhywiifiw-wsxbur does ALL the effort. Patient does none of the effort to complete the activity. Or, the assistance of 2 or more helpers is required for the patient to complete the activity. If activity was not attempted, code reason: 7-Patient Refused. 9-Not Applicable-not attempted and the patient did not perform the activity before the current illness, exacerbation or injury. 10-Not Attempted due to Environmental Limitations-(lack of equipment, weather restraints, etc.). 88-Not Attempted due to Medical Conditions or Safety Concerns. Bed Mobility: 5 Transfers (B,C,W/C): 5 Gait: 5 Indoor Mobility (Ambulation): Independent Prior Devices Use: Walker PT Evaluation-Current Subjective Patient agrees to PT. Currently up with spouse in room. Pain Numeric Pain Scale: 0-No Pain Location: No Pain Reported Objective Patient Orientation: Normal For Age Attachments: IV ROM/Strength ROM Lower Extremities bilateral LE WFL Strength Lower Extremities 4/5 grossly bilateral LE Integumentary/Posture Integumentary refer to nursing notes Bowel Incontinence: No Bladder Incontinence: No Posture trunk flexed posture in stand Neuromuscular (Tone, Coordination, Reflexes) grossly intact Sensory Vision: Wears Glasses Hearing: Functional Sensation Right Lower Extremit: Impaired Sensation Left Lower Extremity: Impaired Transfers Sit to Stand (QC): 5 Gait Does the Patient Walk?: Yes Mode of Locomotion: Walk Anticipated Mode of Locomotion: Walk Walk 10 feet (QC): 5 Walk 50 ft with 2 Turns(QC): 5 Walk 150 ft (QC): 5 Gait Assistive Device: FWW Comments/Gait Description functional gait sequence with FWW/trunk flexed posture Balance Sitting Static: Normal Sitting Dynamic: Normal Standing Static: Normal Standing Dynamic: Normal Assessment/Needs 84 y.o. male, per RN, will dismiss to home and is currently at [facility] with all gross motor skills. Rehab Potential: Fair PT Plan Treatment/Plan Treatment Plan: Discontinue PT, goals met Treatment Duration: May 18, 2020 Frequency: 1 time per week Estimated Hrs Per Day: .5 hour per day Patient and/or Family Agrees t: Yes Discharge Recommendations Therapy Discharge Recommendati: Home & Family Time/GCodes Time In: 913 Time Out: 930 Total Billed Treatment Time: 17 Total Billed Treatment 1 visit EVMod 17 min ASHLYN AJ PT May 18, 2020 09:56
--- NOTE | 2020-05-18 10:05 | NUR ---
RX AND INST TO PT AND . VERBALIZED UNDERSTANDING. REQUESTS TO MAKE OWN APPT WITH DR. ETIENNE. IV REMOVED. GETTING DRESSED FOR DISCHARGE.
--- NOTE | 2020-05-18 10:15 | NUR ---
Important Message from Medicare presented, reviewed, signed and placed in patient chart. Patient and , Deana voiced no intention to appeal and deny any needs or further questions at this time.
--- NOTE | 2020-05-18 12:48 | Progress Note - Cardiology ---
Cardiology SOAP Progress Note Subjective: Feels well after pacemaker implantation No chest discomfort No palp or syncope No shortness of breath Feels more energetic No n/v/d Objective: I&O/Vital Signs 05/18/20 05/18/20 05/18/20 05/18/20 00:47 01:00 04:36 07:00 Temp 36.8 36.8 Pulse 70 69 75 69 Resp 21 20 B/P (MAP) 158/80 (106) 160/80 (106) Pulse Ox 97 97 O2 Delivery Room Air Room Air 05/18/20 05/18/20 07:30 08:26 Temp 36.8 Pulse 71 Resp 18 B/P (MAP) 132/76 (94) Pulse Ox 98 97 O2 Delivery Room Air Room Air 05/18/20 00:00 Intake Total 830 ml Balance 830 ml Weight (Pounds): 219 Weight (Ounces): 0.0 Weight (Calculated Kilograms): 99.006651 Device Insertion Site: without hematoma Bruising: mild bruising Constitutional: AAO x 3, well-developed, well-nourished Respiratory: No accessory muscle use, No respiratory distress; chest expansion is symmetric, chest is bilaterally symmetric, lungs clear to auscultation Cardiovascular: irregularly irregular; No JVD; bradycardia, S1 and S2, systolic murmur Gastrointestional: No tender; soft, round, audible bowel sounds Extremities: no lower extremity edema bilateral Neurologic/Psychiatric: grossly intact (moves all extremities) Skin: No rash on exposed areas, No ulcerations on exposed areas Results/Procedures: Labs Laboratory Tests 05/17/20 16:05: Glucometer 109 05/17/20 20:00: Glucometer 165H 05/18/20 05:49: Glucometer 148H 05/18/20 06:07: White Blood Count 6.0, Red Blood Count 4.92, Hemoglobin 15.2, Hematocrit 45, Mean Corpuscular Volume 91, Mean Corpuscular Hemoglobin 31, Mean Corpuscular Hemoglobin Concent 34, Red Cell Distribution Width 13.8, Platelet Count 191, Mean Platelet Volume 9.3, Sodium Level 139, Potassium Level 4.3, Chloride Level 108H, Carbon Dioxide Level 23, Anion Gap 8, Blood Urea Nitrogen 17, Creatinine 1.11, Estimat Glomerular Filtration Rate > 60, BUN/Creatinine Ratio 15, Glucose Level 153H, Calcium Level 9.4, Corrected Calcium 9.5, Total Bilirubin 0.4, Aspartate Amino Transf (AST/SGOT) 52H, Alanine Aminotransferase (ALT/SGPT) 61H, Alkaline Phosphatase 93, Total Protein 6.2L, Albumin 3.9 Microbiology 05/14/20 Blood Culture - Preliminary, Resulted Staph, Coag 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) 05/14/20 Urine Culture - Final, Complete Gram Pos Mixed Bacterial Priscila A/P: Assessment: S/p dual chamber pacemaker ([employer]) implanted on 05/17/20, functioning normally on interrogation of 05/18/20 Sinus node dysfunction with paroxysmal atrial flutter/fibrillation and with in termittent profound bradycardia (symptomatic) treated with pacemaker implantation Intermittent Mobitz 1 AV block and exhibiting pauses of greater than 3 sec during this hospitalization (prior to pacemaker implantation) Chronic trifascicular block (RBBB and LAFB) UTI - management per Medical services Coronary artery disease status post CABG x4 with ELMORE to LAD, vein graft to OM, vein graft to diagonal 1 and RCA on 05/03/[address] Robb at [facility]. Most recent cardiac catheterization on July 02, [address] Russ revealed patent bypass grafts with small vessel disease. He has refused any repeat stress test, 2-D echocardiogram, or left heart catheterization per Dr. Russ's office note of Jun 2019 LVEF 60% on echo of [address] Russ Hypertension H/o orthostatic hypotension Hyperlipidemia Obesity, BMI is 33 Diabetes mellitus, managed and monitored by primary care physician. History renal insufficiency Mild carotid artery stenosis-most recent carotid duplex done June 2019 TSH of May 15 - WNL COVID-negative on 05/14/20 Plan: * I had a long and detailed discussion with him regarding his CV issues and post-op care of pacemaker * Outpt f/u is advised with Dr Russ * Pacemaker was interrogated today and found to be functioning normally CASSIE MORAN MD [facility] May 18, 2020 12:48
== END 2020-05-18 10:45 | disposition home or self-care (01) | DRG 243 ==
LOC: EDUNIT# 15:53 → ER 15:56 → 4TH 18:12
PROVIDERS: ADMIT Family Medicine; ATTEND Family Medicine
PROC: 0JH606Z Insertion of Pacemaker, Dual Chamber into Chest Subcutaneous Tissue and Fascia, Open Approach (ICD-10-PCS; principal; 2020-05-17)
PROC: 02H63JZ Insertion of Pacemaker Lead into Right Atrium, Percutaneous Approach (ICD-10-PCS; 2020-05-17)
PROC: 02HK3JZ Insertion of Pacemaker Lead into Right Ventricle, Percutaneous Approach (ICD-10-PCS; 2020-05-17)
DX: I49.5 Sick sinus syndrome (principal); N39.0 Urinary tract infection, site not specified; I45.2 Bifascicular block; I48.91 Unspecified atrial fibrillation; I25.10 Atherosclerotic heart disease of native coronary artery without angina pectoris; I10 Essential (primary) hypertension; E11.9 Type 2 diabetes mellitus without complications; J42 Unspecified chronic bronchitis; E78.5 Hyperlipidemia, unspecified; E66.9 Obesity, unspecified; I65.29 Occlusion and stenosis of unspecified carotid artery; F41.9 Anxiety disorder, unspecified; K21.9 Gastro-esophageal reflux disease without esophagitis; M19.91 Primary osteoarthritis, unspecified site; F32.9 Major depressive disorder, single episode, unspecified; K64.9 Unspecified hemorrhoids; Z20.828 Contact with and (suspected) exposure to other viral communicable diseases; Z95.1 Presence of aortocoronary bypass graft; I25.2 Old myocardial infarction; Z68.33 Body mass index [BMI] 33.0-33.9, adult; Z87.442 Personal history of urinary calculi; Z79.84 Long term (current) use of oral hypoglycemic drugs; Z85.820 Personal history of malignant melanoma of skin
CPT/HCPCS: 33208; 36415; 71045; 71046; 80053; 81000; 82962; 83605; 83735; 83874; 83880; 84443; 84484; 85025; 85027; 85379; 85610; 85652; 85730; 86141; 87040; 87077; 87088; 87635; 93005; 93041; 96361; 96372; 96374; 96375

== ENCOUNTER 2020-10-27 05:37 | Outpatient (RCR) | payer MEDICARE, OTHER ==
[~2020-10-27] VITALS: Ht 177.8 cm; Wt 99.2 kg
[~2020-10-27 05:37] MED LIST changes: +AMLO-251 PO; -AMLO10TA7 PO; +APIX2.5T PO; +CEFU500T63 PO
[2020-10-27] MEDS ORDERED: APIX2.5T PO (08:56)
[2020-10-27] MEDS ORDERED: TMSL.4C PO (08:56)
[2020-10-27] MEDS ORDERED: METO50TA7 PO (08:56)
[2020-10-27 08:58] VITALS: BP 141/75
[2020-10-27 09:29] LABS: BASOPHILS % (AUTO) 0 % (0-10); EOSINOPHILS # (AUTO) 0.1 10^3/uL (0.0-0.3); EOSINOPHILS % (AUTO) 1 % (0-10); HEMATOCRIT 44 % (40-54); HEMOGLOBIN 14.5 g/dL (13.3-17.7); LYMPHOCYTES % (AUTO) 12 % (12-44); MEAN CORPUSCULAR HEMOGLOBIN 30 pg (25-34); MEAN CORPUSCULAR HGB CONC 33 g/dL (32-36); MEAN CORPUSCULAR VOLUME 91 fL (80-99); MEAN PLATELET VOLUME 9.5 fL (9.0-12.2); MONOCYTES # (AUTO) 0.7 10^3/uL (0.0-1.0); MONOCYTES % (AUTO) 8 % (0-12); NEUTROPHILS # (AUTO) 6.1 10^3/uL (1.8-7.8); NEUTROPHILS % (AUTO) 77 % (42-75); PLATELET COUNT 208 10^3/uL (130-400); WHITE BLOOD COUNT 7.9 10^3/uL (4.3-11.0)
[2020-10-27 09:47] LABS: BUN/CREATININE RATIO 18; CALCIUM 10.2 MG/DL (8.5-10.1); CARBON DIOXIDE 25 MMOL/L (21-32); CHLORIDE 107 MMOL/L (98-107); CREATININE SERUM 1.01 MG/DL (0.60-1.30); GFR ESTIMATED > 60; GLUCOSE 79 MG/DL (70-105); POTASSIUM 4.2 MMOL/L (3.6-5.0); SODIUM 142 MMOL/L (135-145)
== END 2020-10-27 15:13 | disposition home or self-care (01) ==
LOC: PREOP 05:37
PROVIDERS: ATTEND Otolaryngology Otolaryngology/Facial Plastic Surgery
DX: Z01.812 Encounter for preprocedural laboratory examination (principal); C43.39 Malignant melanoma of other parts of face; L98.9 Disorder of the skin and subcutaneous tissue, unspecified; Z20.822 Contact with and (suspected) exposure to COVID-19
CPT/HCPCS: 80048; 85025; 87081; U0002; 36415; 87635

== ENCOUNTER 2020-10-29 06:19 | Day surgery (SDC) | payer MEDICARE, OTHER ==
[~2020-10-29] VITALS: Ht 177.8 cm; Wt 99.2 kg
[2020-10-29] VITALS (10 sets, daily range): BP systolic 117–147; BP diastolic 72–89
[~2020-10-29 06:19] MED LIST changes: +METO50TA7 PO; +TMSL.4C PO
[2020-10-29] MEDS ORDERED: LACTATED RINGERS 1,000 ML IV PRN (06:30)
[2020-10-29] MEDS ORDERED: fentaNYL INJECTION 100 MCG/2 ML AMP ONE (06:47)
[2020-10-29] MEDS ORDERED: MIDAZOLAM 2 MG/2 ML (VERSED) VIAL ONE (06:47)
[2020-10-29] MEDS ORDERED: LIDOCAINE PF 2% 5 ML (XYLOCAINE) VIAL ONE (06:51)
[2020-10-29] MEDS ORDERED: proPOfol 200 MG/20 ML (DIPRIVAN) VIAL IV ONE (06:51)
[2020-10-29] MEDS ORDERED: ONDANSETRON 4 MG/2 ML (SDV) Z0FRAN ONE (06:51)
[2020-10-29] MEDS ORDERED: SEVOFLURANE (ULTANE) 15 ML INHAL SOLN ONE (06:51)
[2020-10-29] MEDS ORDERED: LIDOCAINE/EPI 1%-1:100,000 (XYLOCAINE) 50 ML ONE (07:00)
[2020-10-29] MEDS ORDERED: MUPIROCIN 2% OINT 22 GM (BACTROBAN) TUBE ONE (07:01)
--- NOTE | 2020-10-29 07:19 | Progress Note-Pre Operative ---
Pre-Operative Progress Note H&P Reviewed The H&P was reviewed, patient examined and no changes noted. Date Seen by Provider: Oct 29, 2020 Time Seen by Provider: 06:45 Date H&P Reviewed: Oct 29, 2020 Time H&P Reviewed: 06:45 Pre-Operative Diagnosis: Melanoma of Right Cheek, Basal Cell of Right Neck TIMBO WHELAN MD Oct 29, 2020 07:19
[2020-10-29] MEDS ORDERED: PHENYLEPHRINE 100 MCG/ML 10 ML (ANESTHESIA) SYR ONE (08:03)
[2020-10-29] MEDS ORDERED: ISOFLURANE (FORANE) 15 ML/15 MIN INHALATION ONE ×3 (08:04→08:41)
--- NOTE | 2020-10-29 08:26 | Progress Note-Post Operative ---
Post-Operative Progess Note Surgeon (s)/Framing Manager (s) Surgeon TIMBO WHELAN MD Framing Manager n/a Pre-Operative Diagnosis Melanoma of Right Cheek, Basal Cell of Right Neck Post-Operative Diagnosis same Post-Op Procedure Note Date of Procedure: Oct 29, 2020 Name of Procedure Performed: Wide Excision of Right Cheek Melanoma, Reconstruction with Local Advancement Flap, Excision of Right Neck Basal Cell carcinoma with INtermediate Repair Description & Findings Description and Findings: n/a Anesthesia Type gen LMA Estimated Blood Loss minimal Packing none. Specimen(s) collected/removed Right Cheek Melanoma-to path Right Neck BAsal cell for frozen section TIMBO WHELAN MD Oct 29, 2020 08:26
[2020-10-29] MEDS ORDERED: HYDROcodone/APAP 5 MG/325 MG (LORTAB) TAB PO PRN (08:30)
[2020-10-29] MEDS ORDERED: ACETAMINOPHEN 325 MG TABLET PO PRN (08:30)
--- NOTE | 2020-10-29 08:46 | Anesthesia-General Post-Op ---
General Patient Condition Mental Status/LOC: Same as Preop Cardiovascular: Satisfactory Nausea/Vomiting: Absent Respiratory: Satisfactory Pain: Controlled Complications: Absent Post Op Complications Complications None Follow Up Care/Instructions Patient Instructions None needed. Anesthesia/Patient Condition Patient Condition Patient is doing well, no complaints, stable vital signs, no apparent adverse anesthesia problems. No complications reported per nursing. RULA RAJAN CRNA Oct 29, 2020 08:46
[2020-10-29] MEDS ORDERED: MEPERIDINE (DEMEROL) INJ 50 MG/ML IVP ONE (09:00)
[2020-10-29] MEDS ORDERED: ONDANSETRON 4 MG/2 ML (SDV) Z0FRAN IVP PRN (09:00)
[2020-10-29] MEDS ORDERED: morphine INJ 10 MG/ML 1ML (SYR OR VIAL) IVP ONE (09:00)
[2020-10-29] MEDS ORDERED: CEPH-507 PO (09:58)
[2020-10-29] MEDS ORDERED: ACHD5005 PO (09:58)
== END 2020-10-29 10:50 | disposition home or self-care (01) ==
LOC: SDC 06:19
PROVIDERS: ATTEND Otolaryngology Otolaryngology/Facial Plastic Surgery
DX: C43.39 Malignant melanoma of other parts of face (principal); I10 Essential (primary) hypertension; I25.10 Atherosclerotic heart disease of native coronary artery without angina pectoris; F32.9 Major depressive disorder, single episode, unspecified; E11.9 Type 2 diabetes mellitus without complications; K21.9 Gastro-esophageal reflux disease without esophagitis; Z79.899 Other long term (current) drug therapy; Z79.01 Long term (current) use of anticoagulants
CPT/HCPCS: 82962; 88305; 88331; 88332; 88344; 93005

== ENCOUNTER 2021-12-31 20:22 | Emergency (ER) | payer MEDICARE, OTHER ==
[~2021-12-31] VITALS: Ht 180.3 cm; Wt 93.4 kg
[~2021-12-31 20:22] MED LIST changes: +ACHD5005 PO; +CEPH-507 PO; +LISI40TA9 PO
--- NOTE | 2021-12-31 20:55 | ED Respiratory ---
General Chief Complaint: Respiratory Problems Stated Complaint: SOB Nursing Triage Note: PT TO ROOM BY WHEELCHAIR. PT STATES HE HAS BEEN SHORT OF BREATH A COUPLE DAYS AND "THOUGHT HE WAS TRYING TO ." PT STATES HE "FEELS LIKE HE IS NOT GETTING ENOUGH AIR." PT O2 SAT 100% ON RA ON ARRIVAL Source: patient Exam Limitations: no limitations (ANGELITO IRWIN MED STUDENT) History of Present Illness Date Seen by Provider: Dec 31, 2021 Time Seen by Provider: 20:22 Initial Comments Mr Veras is an 86yo male that presents today with complaints of SOB. States that he has been feeling a bit short of breath for a few days now and tonight it is worse. He has had episodes like this before and it has never been this bad. He is not having any pain. Says his SOB feels like he is just not able to get a full breath of air in. He does not wear O2 at home. Nothing makes it better. States that walking and movement makes it worse and he has been a little unstable on his feet lately. He does also complain of some chills, L side abdominal pain, and constipation. He does not smoke, drinks alcohol rarely, no drugs. He is vaccinated and boosted for covid. (ANGELITO IRWIN MED STUDENT) Timing/Duration: yesterday Severity: mild, moderate Prior Episodes/Possible Cause: occasional episodes Associated Symptoms: No chest pain/soreness, No cough, No fever/chills, No n evon congestion; shortness of breath; No wheezing (HIREN PICKENS MD) Allergies and Home Medications Allergies Coded Allergies: No Known Drug Allergies (Unverified , 05/01/13) Patient Home Medication List Home Medication List Reviewed: Yes (HIREN PICKENS MD) Amlodipine Besylate (Amlodipine Besylate) 10 Mg Tablet, 10 MG PO DAILY, (Reported) Entered as Reported by: YOHAN FIERRO on 10/25/18 1319 Atorvastatin Calcium (Atorvastatin Calcium) 20 Mg Tablet, 20 MG PO DAILY, (Reported) Entered as Reported by: YOHAN FIERRO on 10/25/18 1319 Cephalexin (Keflex) 500 Mg Capsule, 500 MG PO TID Prescribed by: KYLAH FERNANDEZ on 10/29/20 0958 Glimepiride (Glimepiride) 2 Mg Tablet, 2 MG PO DAILY, (Reported) Entered as Reported by: YOHAN FIERRO on 10/25/18 1319 Hydrocodone/Acetaminophen (Hydrocodone-Acetamin 5-325 mg) 1 Each Tablet, 1 EACH PO Q4H PRN for PAIN-MODERATE (5-7) Prescribed by: KYLAH FERNANDEZ on 10/29/20 0958 Lisinopril (Lisinopril) 40 Mg Tablet, 40 MG PO DAILY, (Reported) Entered as Reported by: YOHAN FIERRO on 10/25/18 1319 Metformin HCl (Metformin HCl) 500 Mg Tablet, 500 MG PO BID WITH MEALS, (Reported) Entered as Reported by: YOHAN FIERRO on 10/25/18 1319 Metoprolol Succinate (Metoprolol Succinate) 50 Mg Tab.er.24h, 25 MG PO DAILY, (Reported) Entered as Reported by: YOHAN FIERRO on 10/27/20 0856 Tamsulosin HCl (Flomax) 0.4 Mg Cap, 0.4 MG PO DAILY, (Reported) Entered as Reported by: YOHAN FIERRO on 10/27/20 0856 Review of Systems Review of Systems Constitutional: chills; No fever EENTM: No hearing loss, No vision loss Respiratory: cough (chornic), phlegm (chronic), short of breath; No wheezing Cardiovascular: No chest pain, No edema, No palpitations Gastrointestinal: abdominal pain (L sided), constipation (chronic); No diarrhea, No hematemesis, No melena, No nausea, No vomiting Genitourinary: No dysuria, No frequency, No hematuria Musculoskeletal: joint pain (R shoulder, chronic); No joint swelling Skin: No pruritus, No rash Psychiatric/Neurological: Denies Headache, Denies Numbness (ANGELITO IRWIN MED STUDENT) Respiratory: cough (chornic), short of breath Cardiovascular: No chest pain, No edema, No palpitations Psychiatric/Neurological: Depressed; Denies Weakness (HIREN PICKENS MD) All Other Systems Reviewed Negative Unless Noted: Yes (HIREN PICKENS MD) Past Fwppjfv-Nogwzh-Afjuni Hx Patient Social History Tobacco Use?: No Substance use?: No Alcohol Use?: Yes Alcohol Frequency: Rarely Pt feels they are or have been: No (ANGELITO IRWIN [employer] STUDENT) Immunizations Up To Date Tetanus Booster (TDap): More than 5yrs PED Vaccines UTD: No Influenza Vaccine Up-to-Date: Yes; Up-to-Date (ANGELITO IRWIN [employer] STUDENT) Seasonal Allergies Seasonal Allergies: No (ANGELITO IRWIN [employer] STUDENT) Past Medical History Surgeries: Yes (OPEN PROSTATE SURGERY, CATARACTS) Appendectomy, CABG, Pacemaker Respiratory: No Chronic Bronchitis Cardiac: Yes (QUAD BYPASS, pacemaker) Coronary Artery Disease, Heart Attack, Hypertension Neurological: No Reproductive Disorders: No Sexually Transmitted Disease: No HIV/AIDS: No Genitourinary: Yes Benign Prostatic Hyperpl, Kidney Stones Gastrointestinal: Yes Gastroesophageal Reflux, Hemorrhoids Musculoskeletal: Yes (history of fx ribs) Arthritis Endocrine: Yes Diabetes, Non-Insulin dep HEENT: Yes Cataract Loss of Vision: Denies Cancer: Yes Melanoma What Type of Treatment Did You: Surgical Intervention Psychosocial: Yes Depression Integumentary: Yes (melanoma R neck) Blood Disorders: No (ANGELITO IRWIN [employer] STUDENT) Family Medical History Reviewed Nursing Family Hx (HIREN PICKENS MD) Physical Exam Vital Signs - First Documented 12/31/21 20:35 Temp 36.5 Pulse 75 Resp 21 B/P (MAP) 131/94 (106) Pulse Ox 100 (HIREN PICKENS MD) Capillary Refill : (ANGELITO IRWIN [employer] STUDENT) Height: 5'11.00" Weight: 219lbs. 0.0oz. 99.003763hs; 28.00 BMI Method:Stated General Appearance: WD/WN, no apparent distress Eyes: Bilateral Eye PERRL, Bilateral Eye EOMI HEENT: PERRL/EOMI, pharynx normal Respiratory: chest non-tender, lungs clear, normal breath sounds, no respiratory distress, no accessory muscle use Cardiovascular: regular rate, rhythm, no edema, no murmur Gastrointestinal: normal bowel sounds, non tender, soft Extremities: no pedal edema, no calf tenderness Neurologic/Psychiatric: alert, normal mood/affect, oriented x 3 Skin: normal color, warm/dry (ANGELITO IRWIN [employer] STUDENT) General Appearance: WD/WN, no apparent distress HEENT: PERRL/EOMI, pharynx normal Respiratory: lungs clear, normal breath sounds Cardiovascular: regular rate, rhythm, no murmur Gastrointestinal: non tender, soft Neurologic/Psychiatric: alert, oriented x 3 Skin: normal color, warm/dry (HIREN PICKENS MD) Progress/Results/Core Measures Suspected Sepsis SIRS Temperature: Pulse: 75 Respiratory Rate: 21 Blood Pressure 131 /94 Mean: 106 (ANGELITO IRWIN MED STUDENT) Results/Orders Lab Results Laboratory Tests Test 12/31/21 20:49 12/31/21 21:22 Range/Units White Blood Count 6.3 4.3-11.0 10^3/uL Red Blood Count 5.21 4.30-5.52 10^6/uL Hemoglobin 15.9 13.3-17.7 g/dL Hematocrit 47 40-54 % Mean Corpuscular Volume 90 80-99 fL Mean Corpuscular Hemoglobin 31 25-34 pg Mean Corpuscular Hemoglobin Concent 34 32-36 g/dL Red Cell Distribution Width 12.9 10.0-14.5 % Platelet Count 193 130-400 10^3/uL Mean Platelet Volume 9.2 9.0-12.2 fL Immature Granulocyte % (Auto) 0 % Neutrophils (%) (Auto) 69 42-75 % Lymphocytes (%) (Auto) 20 12-44 % Monocytes (%) (Auto) 10 0-12 % Eosinophils (%) (Auto) 1 0-10 % Basophils (%) (Auto) 1 0-10 % Neutrophils # (Auto) 4.3 1.8-7.8 10^3/uL Lymphocytes # (Auto) 1.2 1.0-4.0 10^3/uL Monocytes # (Auto) 0.6 0.0-1.0 10^3/uL Eosinophils # (Auto) 0.1 0.0-0.3 10^3/uL Basophils # (Auto) 0.0 0.0-0.1 10^3/uL Immature Granulocyte # (Auto) 0.0 0.0-0.1 10^3/uL Sodium Level 138 135-145 MMOL/L Potassium Level 4.1 3.6-5.0 MMOL/L Chloride Level 103 98-107 MMOL/L Carbon Dioxide Level 22 21-32 MMOL/L Anion Gap 13 5-14 MMOL/L Blood Urea Nitrogen 24 H 7-18 MG/DL Creatinine 1.14 0.60-1.30 MG/DL Estimat Glomerular Filtration Rate 63 BUN/Creatinine Ratio 21 Glucose Level 162 H 70-105 MG/DL Calcium Level 11.0 H 8.5-10.1 MG/DL Corrected Calcium 10.9 H 8.5-10.1 MG/DL Total Bilirubin 0.7 0.1-1.0 MG/DL Aspartate Amino Transf (AST/SGOT) 21 5-34 U/L Alanine Aminotransferase (ALT/SGPT) 20 0-55 U/L Alkaline Phosphatase 119 40-136 U/L Troponin I < 0.028 <0.028 NG/ML C-Reactive Protein High Sensitivity 0.17 0.00-0.50 MG/DL B-Type Natriuretic Peptide 175.2 H <100.0 PG/ML Total Protein 6.7 6.4-8.2 GM/DL Albumin 4.1 3.2-4.5 GM/DL Urine Color YELLOW Urine Clarity CLEAR Urine pH 7.5 5-9 Urine Specific [place] 1.015 L 1.016-1.022 Urine Protein NEGATIVE NEGATIVE Urine Glucose (UA) NEGATIVE NEGATIVE Urine Ketones NEGATIVE NEGATIVE Urine Nitrite NEGATIVE NEGATIVE Urine Bilirubin NEGATIVE NEGATIVE Urine Urobilinogen 1.0 < = 1.0 MG/DL Urine Leukocyte Esterase TRACE H NEGATIVE Urine RBC (Auto) NEGATIVE NEGATIVE Urine RBC RARE /HPF Urine WBC 0-2 /HPF Urine Crystals NONE /LPF Urine Bacteria TRACE /HPF Urine Casts NONE /LPF Urine Mucus NEGATIVE /LPF Urine Culture Indicated NO (HIREN PICKENS MD) My Orders Orders - HIREN PICKENS MD Cbc With Automated Diff (12/31/21 20:51) Comprehensive Metabolic Panel (12/31/21 20:51) Hs C Reactive Protein (12/31/21 20:51) Troponin I Can (12/31/21 20:51) Ua Culture If Indicated (12/31/21 20:51) Ed Iv/Invasive Line Start (12/31/21 20:51) Chest 1 View, Ap/Pa Only (12/31/21 20:51) Ekg Tracing (12/31/21 20:51) Monitor-Rhythm Ecg Trace Only (12/31/21 20:51) Ns Iv 500 Ml (Sodium Chloride 0.9%) (12/31/21 21:00) Foot, Right, 3 View (12/31/21 21:59) Bnp [place] (12/31/21 22:04) (HIREN PICKENS MD) Medications Given in ED Current Medications Medications Dose Ordered Sig/Homero Route Start Time Stop Time Status Last Admin Dose Admin Sodium Chloride 500 ml @ 0 mls/hr Q0M ONCE IV 12/31/21 21:00 12/31/21 21:01 DC 12/31/21 21:05 500 MLS/HR (HIREN PICKENS MD) Vital Signs/I&O 12/31/21 20:35 Temp 36.5 Pulse 75 Resp 21 B/P (MAP) 131/94 (106) Pulse Ox 100 (HIREN PICKENS MD) Vital Signs/I&O Capillary Refill : (ANGELITO IRWIN MED STUDENT) Blood Pressure Mean: 106 Progress Note : Time: 20:35 Progress Note Pt was seen and examined. Pt is triple vaxxed for covid but could still be covid or other respiratory infection. Possibly could have PNA or pneumothorax but low likelyhood and will check CXR. Will work up cardiovascular cause with ECG, Troponin. States he has had some UTIs in the past, which could be possible now. Consider breathing treatment but not really having trouble breathing and lungs clear. Will check basic labs as well as give some fluids. No pain at this time. (ANGELITO IRWIN MED STUDENT) Progress Note : Progress Note I have seen and evaluated patient and agree with above except as indicated. I have directed the plan of care. Patient is here with intermittent shortness of breath for unknown reason. Also does admit to some depression symptoms. He had checkup with his primary care doctor, Dr. Farfan last week and everything was okay. Apparently he had labs drawn at that time that he does not know the results of yet. States he has had some depressive symptoms since he turned 81. Does admit to some concerns about his for the future. They have been for 62 years. Denies nausea, vomiting, chest pain, palpitations or leg swelling. Does have pacemaker in place. Reports taking meds as directed. Evaluation as above. EKG done nonconcerning. Does have paced rhythm. We will check chest x-ray, basic labs, UA and he also did report right foot pain after tripping yesterday and states his foot ended up behind him. Does complain of pain to the bridge of the foot does not have any significant swelling or bruising noted. We will go ahead and get a right foot x-ray. Monitor patient. 2305: Chest x-ray as noted below. We have added a BNP which is not significantly elevated. Foot x-ray is negative. Overall this may be related to a component of depression and I have discussed this with the patient and family and recommended follow-up with Dr. Farfan for this. I will send a copy of the note to him. Discharged home with return precautions. Patient and family verbalized understanding instructions and agreement with plan. (HIREN PICKENS MD) ECG Initial ECG Impression Date: Dec 31, 2021 Initial ECG Impression Time: 20:36 Initial ECG Rate: 70 Comment Paced rhythm with rate 70. Artifact noted. Normal axis. Left bundle branch block noted. Similar to previous of 10/29/2020. Interpreted by me. (HIREN PICKENS MD) Diagnostic Imaging Diagonstic Imaging: Xray Plain Films/CT/US/NM/MRI: chest [facility] [place] [place] NAME: VICTORIA VERAS [facility] REC#: [id number] PT STATUS: REG ER : 1935 PHYSICIAN: HIREN PICKENS MD ADMIT DATE: 12/31/21/ER Draft Date of Exam:12/31/21 CHEST 1 VIEW, AP/PA ONLY INDICATION: Shortness of air. Cough and congestion. COMPARISON: None. FINDINGS: Single frontal radiographic view of the chest was obtained and demonstrates mild cardiomegaly and pulmonary vascular congestion. Lungs show diffuse prominence of the interstitium suggestive of interstitial pulmonary edema. There is no large effusion or pneumothorax. Left-sided dual-lead pacemaker with sternotomy wires noted. Osseous structures show no gross acute abnormality. IMPRESSION: Cardiomegaly with sequela of CHF including interstitial pulmonary edema. Dictated on workstation # [id number] Dict: 12/31/212148 Trans: 12/31/212154 PJE [id number] Interpreted by: APRIL DENT MD Electronically signed by: Diagonstic Imaging: Xray Plain Films/CT/US/NM/MRI: other Comments [facility] [place], [place] NAME: VICTORIA VERAS [facility] REC#: [id number] PT STATUS: REG ER : 1935 PHYSICIAN: HIREN PICKENS MD ADMIT DATE: 12/31/21/ER Draft Date of Exam:12/31/21 FOOT, RIGHT, 3 VIEW INDICATION: Right foot pain. COMPARISON: None. FINDINGS: Three radiographic views of the right foot were obtained. There is generalized diminished bone mineral density. Osseous structures however are intact. Joint spaces are maintained. There is no convincing evidence of acute fracture or dislocation. Advanced calcified arterial sclerosis is present. No unexpected radiopaque foreign bodies are identified. IMPRESSION: 1. No acute fracture or dislocation of the right foot. 2. Generalized diminished bone mineral density suspicious for osteopenia/osteoporosis. Correlation with DEXA scan is recommended. Dictated on workstation # [id number] Dict: 12/31/212240 Trans: 12/31/212244 [facility] [id number] Interpreted by: PARIL DENT MD Electronically signed by: (HIREN PICKENS MD) Departure Impression Primary Impression: Dyspnea Qualified Codes: R06.00 - Dyspnea, unspecified Additional Impression: Depression Qualified Codes: F32.A - Depression, unspecified Disposition: 01 HOME, SELF-CARE Condition: Improved Departure-Patient Inst. Decision time for Depature: 23:10 (HIREN PICKENS MD) Referrals: FAUSTINA FARFAN MD (PCP/Family) Primary Care Physician Patient Instructions: Depression, Adult (DC), Shortness of Breath (Dyspnea) (DC) Add. Discharge Instructions: All discharge instructions reviewed with patient and/or family. Voiced understanding. Follow-up with Dr. Farfan early next week for recheck and further evaluation and to discuss depression. Also discussed visit here tonight. Return for worse pain, fever, vomiting, weakness, breathing problems or other concerns as needed. Continue home medications as previously prescribed. Copy Copies To 1: FAUSTINA FARFAN MD, DEREK MED STUDENT Dec 31, 2021 20:55 HIREN PICKENS MD Dec 31, 2021 21:59
[2021-12-31 20:57] LABS: BASOPHILS % (AUTO) 1 % (0-10); EOSINOPHILS # (AUTO) 0.1 10^3/uL (0.0-0.3); EOSINOPHILS % (AUTO) 1 % (0-10); HEMATOCRIT 47 % (40-54); HEMOGLOBIN 15.9 g/dL (13.3-17.7); LYMPHOCYTES # (AUTO) 1.2 10^3/uL (1.0-4.0); LYMPHOCYTES % (AUTO) 20 % (12-44); MEAN CORPUSCULAR HEMOGLOBIN 31 pg (25-34); MEAN CORPUSCULAR HGB CONC 34 g/dL (32-36); MEAN CORPUSCULAR VOLUME 90 fL (80-99); MEAN PLATELET VOLUME 9.2 fL (9.0-12.2); MONOCYTES # (AUTO) 0.6 10^3/uL (0.0-1.0); MONOCYTES % (AUTO) 10 % (0-12); NEUTROPHILS # (AUTO) 4.3 10^3/uL (1.8-7.8); NEUTROPHILS % (AUTO) 69 % (42-75); PLATELET COUNT 193 10^3/uL (130-400); WHITE BLOOD COUNT 6.3 10^3/uL (4.3-11.0)
[2021-12-31] MEDS ORDERED: NS IV 500 ML 500 ML IV ONE (21:00)
[2021-12-31 21:03] LABS: ALBUMIN 4.1 GM/DL (3.2-4.5); CHLORIDE 103 MMOL/L (98-107); POTASSIUM 4.1 MMOL/L (3.6-5.0); SODIUM 138 MMOL/L (135-145)
[2021-12-31 21:06] LABS: GLUCOSE 162 MG/DL (70-105); TOTAL PROTEIN 6.7 GM/DL (6.4-8.2)
[2021-12-31 21:07] LABS: BILIRUBIN,TOTAL 0.7 MG/DL (0.1-1.0); CARBON DIOXIDE 22 MMOL/L (21-32)
[2021-12-31 21:09] LABS: ALKALINE PHOSPHATASE 119 U/L (40-136); CREATININE SERUM 1.14 MG/DL (0.60-1.30); GFR ESTIMATED 63
[2021-12-31 21:11] LABS: BUN/CREATININE RATIO 21
[2021-12-31 21:12] LABS: ALANINE AMINOTRANSFERASE 20 U/L (0-55)
[2021-12-31 21:31] LABS: BILIRUBIN,URINE NEGATIVE (NEGATIVE); CLARITY,URINE CLEAR; COLOR,URINE YELLOW; GLUCOSE, URINE (UA) NEGATIVE (NEGATIVE); KETONES,URINE NEGATIVE (NEGATIVE); LEUKOCYTE ESTERASE ,URINE TRACE (NEGATIVE); NITRITE,URINE NEGATIVE (NEGATIVE); PH,URINE 7.5 (5-9); PROTEIN,URINE NEGATIVE (NEGATIVE)
[2021-12-31 21:42] LABS: BACTERIA,URINE TRACE /HPF; RBC,URINE RARE /HPF; WBC,URINE 0-2 /HPF
--- NOTE | 2021-12-31 21:56 | Diagnostic Imaging Report ---
INDICATION: Shortness of air. Cough and congestion. COMPARISON: None. FINDINGS: Single frontal radiographic view of the chest was obtained and demonstrates mild cardiomegaly and pulmonary vascular congestion. Lungs show diffuse prominence of the interstitium suggestive of interstitial pulmonary edema. There is no large effusion or pneumothorax. Left-sided dual-lead pacemaker with sternotomy wires noted. Osseous structures show no gross acute abnormality. IMPRESSION: Cardiomegaly with sequela of CHF including interstitial pulmonary edema. Dictated by: Dictated on workstation # [id number]
--- NOTE | 2021-12-31 22:46 | Diagnostic Imaging Report ---
INDICATION: Right foot pain. COMPARISON: None. FINDINGS: Three radiographic views of the right foot were obtained. There is generalized diminished bone mineral density. Osseous structures however are intact. Joint spaces are maintained. There is no convincing evidence of acute fracture or dislocation. Advanced calcified arterial sclerosis is present. No unexpected radiopaque foreign bodies are identified. IMPRESSION: 1. No acute fracture or dislocation of the right foot. 2. Generalized diminished bone mineral density suspicious for osteopenia/osteoporosis. Correlation with DEXA scan is recommended. Dictated by: Dictated on workstation # [id number]
[2021-12-31 23:18] VITALS: BP 136/87
== END 2021-12-31 23:18 | disposition home or self-care (01) ==
LOC: EDUNIT# 20:22 → ER 20:24
DX: R06.00 Dyspnea, unspecified (principal); F32.A Depression, unspecified; M79.671 Pain in right foot; I44.7 Left bundle-branch block, unspecified; W18.40XA Slipping, tripping and stumbling without falling, unspecified, initial encounter
CPT/HCPCS: 36415; 71045; 73630; 80053; 81000; 83880; 84484; 85025; 86141; 93005; 93041; 96360

== ENCOUNTER 2022-06-14 07:47 | Observation (INO) | payer MEDICARE ==
[~2022-06-14] VITALS: Ht 182.8 cm; Wt 93.4 kg
[2022-06-14] MEDS ORDERED: NS IV 500 ML 500 ML IV ONE (08:00)
[2022-06-14] MEDS ORDERED: NS IV 1000 ML 1,000 ML IV SCH (08:00)
[2022-06-14] MEDS ORDERED: cefTRIAXone 1 GM PRE-MIX 50 ML IV ONE (08:00)
--- NOTE | 2022-06-14 08:06 | ED Fall/Injury ---
General Chief Complaint: Trauma-Non Activation Stated Complaint: FEVER, POSSIBLE UTI, FELL Source: patient Exam Limitations: no limitations History of Present Illness Date Seen by Provider: Jun 14, 2022 Time Seen by Provider: 07:44 Initial Comments Patient to the ER by private conveyance with his and assisted to the car by wheelchair and brought back for chief complaint that last night he lost control of his urine, slipped in it and fell now has pain in his right knee and right ankle. He says he slept well. He did not anything for pain. He does not recall hitting his head. He is on Eliquis. His remarks that he had a fever of 100.8 yesterday evening. Not having a cough shortness of air chest pain abdominal pain nausea vomiting diarrhea or constipation. He has a history of coronary disease with CABG. He has some dementia but is able to answer questions appropriately. He denies any pain in his head or neck. Allergies and Home Medications Allergies Coded Allergies: No Known Drug Allergies (Unverified , 05/01/13) Patient Home Medication List Home Medication List Reviewed: Yes Amlodipine Besylate (Amlodipine Besylate) 10 Mg Tablet, 10 MG PO DAILY, (Reported) Entered as Reported by: YOHAN FIERRO on 10/25/181318 Atorvastatin Calcium (Atorvastatin Calcium) 20 Mg Tablet, 20 MG PO DAILY, (Reported) Entered as Reported by: YOHAN FIERRO on 10/25/181318 Cephalexin (Keflex) 500 Mg Capsule, 500 MG PO TID Prescribed by: KYLAH FERNANDEZ on 10/29/20957 Glimepiride (Glimepiride) 2 Mg Tablet, 2 MG PO DAILY, (Reported) Entered as Reported by: YOHAN FIERRO on 10/25/181318 Hydrocodone/Acetaminophen (Hydrocodone-Acetamin 5-325 mg) 1 Each Tablet, 1 EACH PO Q4H PRN for PAIN-MODERATE (5-7) Prescribed by: KYLAH FERNANDEZ on 10/29/20957 Lisinopril (Lisinopril) 40 Mg Tablet, 40 MG PO DAILY, (Reported) Entered as Reported by: YOHAN FIERRO on 10/25/181318 Metformin HCl (Metformin HCl) 500 Mg Tablet, 500 MG PO BID WITH MEALS, (Reported) Entered as Reported by: YOHAN FIERRO on 10/25/18 1319 Metoprolol Succinate (Metoprolol Succinate) 50 Mg Tab.er.24h, 25 MG PO DAILY, (Reported) Entered as Reported by: YOHAN FIERRO on 10/27/20 0856 Tamsulosin HCl (Flomax) 0.4 Mg Cap, 0.4 MG PO DAILY, (Reported) Entered as Reported by: YOHAN FIERRO on 10/27/20 0856 Review of Systems Review of Systems Constitutional: No chills, No diaphoresis Eyes: Denies Blindness, Denies Blurred Vision Ears, Nose, Mouth, Throat: denies ear pain, denies ear discharge Respiratory: No cough, No short of breath Cardiovascular: No chest pain, No edema Gastrointestinal: No abdominal pain, No constipation, No diarrhea Genitourinary: No discharge, No dysuria Musculoskeletal: No back pain, No joint pain All Other Systems Reviewed Negative Unless Noted: Yes Past Gebjsni-Itkayd-Cfvrnw Hx Patient Social History Tobacco Use?: No Use of E-Cig and/or Vaping dev: No Immunizations Up To Date Tetanus Booster (TDap): More than 5yrs PED Vaccines UTD: No Seasonal Allergies Seasonal Allergies: No Past Medical History Surgeries: Yes (OPEN PROSTATE SURGERY, CATARACTS) Appendectomy, CABG, Pacemaker Respiratory: No Chronic Bronchitis Cardiac: Yes (QUAD BYPASS, pacemaker) Coronary Artery Disease, Heart Attack, Hypertension Neurological: No Reproductive Disorders: No Sexually Transmitted Disease: No HIV/AIDS: No Genitourinary: Yes Benign Prostatic Hyperpl, Kidney Stones Gastrointestinal: Yes Gastroesophageal Reflux, Hemorrhoids Musculoskeletal: Yes (history of fx ribs) Arthritis Endocrine: Yes Diabetes, Non-Insulin dep HEENT: Yes Cataract Loss of Vision: Denies Cancer: Yes Melanoma What Type of Treatment Did You: Surgical Intervention Psychosocial: Yes Depression Integumentary: Yes (melanoma R neck) Blood Disorders: No Physical Exam Vital Signs Vital Signs - First Documented 06/14/22 07:50 Temp 36.6 Pulse 74 Resp 16 B/P (MAP) 136/75 (95) Pulse Ox 97 O2 Delivery Room Air Capillary Refill : Height, Weight, BMI Height: 5'11.00" Weight: 219lbs. 0.0oz. 99.381673ti; 28.00 BMI Method:Stated General Appearance: WD/WN, no apparent distress HEENT: PERRL/EOMI, TMs normal, pharynx normal Neck: full range of motion, normal inspection Cardiovascular: normal peripheral pulses, regular rate, rhythm Respiratory: lungs clear, normal breath sounds, no respiratory distress, no accessory muscle use Peripheral Pulses: 2+ Radial Pulses (R), 2+ Radial Pulses (L) Gastrointestinal: normal bowel sounds, non tender, soft Extremities: non-tender, normal inspection, normal capillary refill Neurologic/Psychiatric: alert, normal mood/affect, oriented x 3 Skin: normal color, warm/dry [place] Coma Score Best Eye Response: (4) Open Spontaneously Best Verbal Response: (5) Oriented Best Motor Response: (6) Obeys Commands [place] Total: 15 Progress/Results/Core Measures Results/Orders Lab Results Laboratory Tests Test 06/14/22 08:05 06/14/22 10:43 Range/Units White Blood Count 12.3 H 4.3-11.0 10^3/uL Red Blood Count 4.60 4.30-5.52 10^6/uL Hemoglobin 14.4 13.3-17.7 g/dL Hematocrit 42 40-54 % Mean Corpuscular Volume 90 80-99 fL Mean Corpuscular Hemoglobin 31 25-34 pg Mean Corpuscular Hemoglobin Concent 35 32-36 g/dL Red Cell Distribution Width 13.0 10.0-14.5 % Platelet Count 177 130-400 10^3/uL Mean Platelet Volume 9.6 9.0-12.2 fL Immature Granulocyte % (Auto) 0 % Neutrophils (%) (Auto) 84 H 42-75 % Lymphocytes (%) (Auto) 4 L 12-44 % Monocytes (%) (Auto) 11 0-12 % Eosinophils (%) (Auto) 0 0-10 % Basophils (%) (Auto) 0 0-10 % Neutrophils # (Auto) 10.4 H 1.8-7.8 10^3/uL Lymphocytes # (Auto) 0.5 L 1.0-4.0 10^3/uL Monocytes # (Auto) 1.3 H 0.0-1.0 10^3/uL Eosinophils # (Auto) 0.0 0.0-0.3 10^3/uL Basophils # (Auto) 0.1 0.0-0.1 10^3/uL Immature Granulocyte # (Auto) 0.1 0.0-0.1 10^3/uL Neutrophils % (Manual) 76 % Lymphocytes % (Manual) 8 % Monocytes % (Manual) 9 % Eosinophils % (Manual) 1 % Basophils % (Manual) 0 % Band Neutrophils 6 % Elliptocytes SLIGHT Prothrombin Time 17.3 H 12.2-14.7 SEC INR Comment 1.4 0.8-1.4 Activated Partial Thromboplast Time 37 H 24-35 SEC Sodium Level 139 135-145 MMOL/L Potassium Level 3.9 3.6-5.0 MMOL/L Chloride Level 104 98-107 MMOL/L Carbon Dioxide Level 23 21-32 MMOL/L Anion Gap 12 5-14 MMOL/L Blood Urea Nitrogen 19 H 7-18 MG/DL Creatinine 1.07 0.60-1.30 MG/DL Estimat Glomerular Filtration Rate 68 BUN/Creatinine Ratio 18 Glucose Level 160 H 70-105 MG/DL Lactic Acid Level 1.64 0.50-2.00 MMOL/L Calcium Level 10.7 H 8.5-10.1 MG/DL Corrected Calcium 10.7 H 8.5-10.1 MG/DL Total Bilirubin 1.9 H 0.1-1.0 MG/DL Aspartate Amino Transf (AST/SGOT) 20 5-34 U/L Alanine Aminotransferase (ALT/SGPT) 18 0-55 U/L Alkaline Phosphatase 90 40-136 U/L Total Protein 7.0 6.4-8.2 GM/DL Albumin 4.0 3.2-4.5 GM/DL Urine Color YELLOW Urine Clarity CLOUDY Urine pH 7.0 5-9 Urine Specific [place] 1.015 L 1.016-1.022 Urine Protein 2+ H NEGATIVE Urine Glucose (UA) NEGATIVE NEGATIVE Urine Ketones NEGATIVE NEGATIVE Urine Nitrite POSITIVE H NEGATIVE Urine Bilirubin NEGATIVE NEGATIVE Urine Urobilinogen 4.0 < = 1.0 MG/DL Urine Leukocyte Esterase 2+ H NEGATIVE Urine RBC (Auto) 2+ H NEGATIVE Urine RBC 2-5 H /HPF Urine WBC TNTC H /HPF Urine Squamous Epithelial Cells 2-5 /HPF Urine Crystals NONE /LPF Urine Bacteria MODERATE H /HPF Urine Casts NONE /LPF Urine Mucus NEGATIVE /LPF Urine Culture Indicated YES My Orders Orders - HERI RICHARDS Ct Head/Cervical Spine Wo (06/14/22 07:58) Chest 1 View, Ap/Pa Only (06/14/22 07:58) Knee, Right, 3 Views (06/14/22 07:58) Ankle, Right, 3 Views (06/14/22 07:58) Hip, Right, 2 Views (06/14/22 07:58) Ed Iv/Invasive Line Start (06/14/22 07:58) Ns Iv 500 Ml (Sodium Chloride 0.9%) (06/14/22 08:00) Cbc With Automated Diff (06/14/22 07:58) Comprehensive Metabolic Panel (06/14/22 07:58) Blood Culture (06/14/22 07:58) Sputum Culture (06/14/22 07:58) Urine Culture (06/14/22 07:58) Protime With Inr (06/14/22 07:58) Partial Thromboplastin Time (06/14/22 07:58) Ed Iv/Invasive Line Start (06/14/22 07:58) Ed Iv/Invasive Line Start (06/14/22 07:58) Vital Signs Adult Sepsis Patie Q15M (06/14/22 07:58) O2 (06/14/22 07:58) Remove Rings In Anticipation O (06/14/22 07:58) Lactic Acid Analyzer (06/14/22 07:58) Ns Iv 1000 Ml (Sodium Chloride 0.9%) (06/14/22 08:00) Ceftriaxone 1 Gm Pre-Mix (Rocephin 1 Gm (06/14/22 08:00) Manual Differential (06/14/22 08:05) Fentanyl Inj (Sublimaze Injection) (06/14/22 09:30) Ua Culture If Indicated (06/14/22 11:04) Medications Given in ED Current Medications Medications Dose Ordered Sig/Homero Route Start Time Stop Time Status Last Admin Dose Admin Ceftriaxone Sodium/Dextrose 50 ml @ 100 mls/hr ONCE ONCE IV 06/14/22 08:00 06/14/22 08:29 DC 06/14/22 09:08 100 MLS/HR Fentanyl Citrate 50 mcg ONCE ONCE IVP 06/14/22 09:30 06/14/22 09:31 DC 06/14/22 09:31 50 MCG Sodium Chloride 500 ml @ 0 mls/hr Q0M ONCE IV 06/14/22 08:00 06/14/22 08:01 DC 06/14/22 09:34 1,000 MLS/HR Vital Signs/I&O 06/14/22 06/14/22 07:50 09:31 Temp 36.6 36.6 Pulse 74 Resp 16 B/P (MAP) 136/75 (95) Pulse Ox 97 O2 Delivery Room Air Progress Progress Note : Time: 08:[address] of the head and C-spine, x-ray of the right hip, right knee and right ankle. No obvious deformity. Because of the fever we initiated a septic work-up. He does not have a fever today nor is he tachycardia. He does have an irregular pulse and he is on metoprolol which may be rate limiting his heart rate. Highly suspicious of urinary tract infection given the fact that he lost control of his urine which led to his fall. We will go ahead and treat him with Rocephin IV. We will conservatively treat him with 1500 cc of fluid so as not to overload his heart and yet adequately treat his potential sepsis. Diagnostic Imaging Diagonstic Imaging: Xray Plain Films/CT/US/NM/MRI: chest Comments [facility] [place] NAME: VICTORIA VERAS [facility] REC#: [id number] PT STATUS: REG ER : 1935 PHYSICIAN: HERI RICHARDS MD ADMIT DATE: 06/14/22/ER Draft Date of Exam:06/14/22 CHEST 1 VIEW, AP/PA ONLY HISTORY: Fall, right chest pain, fever COMPARISON: 12/31/2021 TECHNIQUE: Frontal view of the chest FINDINGS: Lung volumes are large. No consolidation is seen. There is no pleural effusion or pneumothorax. There is mild cardiomegaly. Sternotomy wires and post-CABG changes are seen. Left-sided pacemaker leads appear normal. No displaced fractures are seen. IMPRESSION: 1. No acute pulmonary abnormality is seen. Dictated on workstation # [id number] Dict: 06/14/2204 Trans: 06/14/22 0907 AMISHA [id number] Interpreted by: EDA MERCADO MD Electronically signed by: Reviewed: Reviewed by Me Diagonstic Imaging: Xray Plain Films/CT/US/NM/MRI: hip (Right) Comments [facility] [place] NAME: VICTORIA VERAS [facility] REC#: [id number] PT STATUS: REG ER : 1935 PHYSICIAN: HERI RICHARDS MD ADMIT DATE: 06/14/22/ER Draft Date of Exam:06/14/22 HIP, RIGHT, 2 VIEWS HISTORY: Right hip pain TECHNIQUE: 2 views of the right hip COMPARISON: None FINDINGS: No acute fracture or dislocation is seen in the right hip. Alignment appears normal. There are mild degenerative changes in the hip joint. There is calcific atherosclerosis. IMPRESSION: 1. No acute osseous abnormality is seen in the right hip. Dictated on workstation # [id number] Dict: 06/14/22905 Trans: 06/14/22 0908 [facility] [id number] Interpreted by: EDA MERCADO MD Electronically signed by: Reviewed: Reviewed by Tx Diagonstic Imaging: Xray Plain Films/CT/US/NM/MRI: knee (Right) Comments [facility] [place] NAME: VICTORIA VERAS [facility] REC#: [id number] PT STATUS: REG ER : 1935 PHYSICIAN: HERI RICHARDS MD ADMIT DATE: 06/14/22/ER Draft Date of Exam:06/14/22 KNEE, RIGHT, 3 VIEWS HISTORY: Right knee pain TECHNIQUE: 3 views of the right knee COMPARISON: None FINDINGS: No acute fracture is seen in the right knee. Alignment appears normal. There is marked degenerative change in the lateral compartment and mild in the medial compartment. There are mild degenerative changes in the patellofemoral compartment. There is a small right knee joint effusion. There are multiple joint bodies, with a larger joint body seen anteriorly measuring 1 cm in size. There is calcific atherosclerosis. IMPRESSION: 1. 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 2. Small right knee joint effusion with joint bodies. Dictated on workstation # [id number] Dict: 06/14/22 0909 Trans: 06/14/22 0913 [facility] [id number] Interpreted by: EDA MERCADO MD Electronically signed by: Reviewed: Reviewed by Tx Diagonstic Imaging: Xray Plain Films/CT/US/NM/MRI: ankle (Right) Comments [facility] [place] NAME: VICTORIA VERAS [facility] REC#: [id number] PT STATUS: REG ER : 1935 PHYSICIAN: HERI RICHARDS MD ADMIT DATE: 06/14/22/ER Draft Date of Exam:06/14/22 ANKLE, RIGHT, 3 VIEWS HISTORY: Right ankle pain after a fall. TECHNIQUE: Three views of the right ankle. COMPARISON: None. FINDINGS: No acute fracture or dislocation is seen in the right ankle. Alignment appears normal. Joint spaces are preserved. There is calcific atherosclerosis. There are mild degenerative changes in the midfoot. There are plantar and posterior calcaneal enthesophytes. No cortical erosions are seen. There is mild soft tissue swelling about the right ankle. IMPRESSION: Mild soft tissue swelling about the right ankle with no acute osseous abnormality seen. Dictated on workstation # [id number] Dict: 06/14/22906 Trans: 06/14/2210 [id number] Interpreted by: EDA MERCADO MD Electronically signed by: Reviewed: Reviewed by Tx Diagonstic Imaging: CT Plain Films/CT/US/NM/MRI: c-spine, head Comments [facility] [place] NAME: VICTORIA VERAS [facility] REC#: [id number] PT STATUS: REG ER : 1935 PHYSICIAN: HERI RICHARDS MD ADMIT DATE: 06/14/22/ER Draft Date of Exam:06/14/22 CT HEAD/CERVICAL SPINE WO CLINICAL INDICATION: Patient fell and does not think he hit head. EXAM: Head CT without IV contrast with sagittal and coronal reformations. Axial CT scan of the cervical spine with sagittal and coronal reformations. Auto Exposure Controls were utilized during the CT exam to meet ALARA standards for radiation dose reduction. COMPARISON: None. FINDINGS: HEAD CT: There is no evidence of acute cerebral infarct, intracranial hemorrhage, or gross mass effect. The brain parenchymal volume appears appropriate for patient's age. There are multiple focal patchy areas of low-attenuation white matter changes involving both thalami and right arita radiata region. There are patchy and confluent areas of low attenuation regions of both cerebral hemispheres, likely representing chronic small vessel ischemic disease and leukoaraiosis. There is normal nolan-white matter distinction. There is no significant midline shift or herniation. There is no evidence of hydrocephalus. The basal cisterns are unremarkable. The skull, extracranial soft tissue, and orbits are unremarkable. The paranasal sinuses are unremarkable. Temporal bones show no significant abnormality. Cervical spine: There is no acute cervical spine fracture. There is grade 1 anterolisthesis of C4 on C5, C5 on C6, and C6 on C7 with no pars defect. Chronic displaced fractures involving the spinous process of the C7 and T1 vertebrae. There are multilevel cervical spine vertebral body spurs and facet arthropathy. There is no significant prevertebral soft tissue swelling. There are multiple nodular areas involving the bilateral parotid gland regions with the largest one measuring 11 mm x 6 mm in the superficial portion of the right parotid gland region. Multiple focal calcifications involving the left parotid gland are noted. The visualized upper lung cortez are clear. The remainder of the neck soft tissue structures is unremarkable. Poor dentition is noted. IMPRESSION: 1: There is no evidence of an acute intracranial process. There is no skull fracture. 2: There is no acute cervical spine fracture. 3: There is multilevel cervical spine degenerative disease. Dictated on workstation # [id number] Dict: 06/14/22 0852 Trans: 06/14/22 0913 [id number] Interpreted by: MEL LAMB MD Electronically signed by: Reviewed: Reviewed by Me Focused Exam Sepsis Stage: Sepsis Possible Source: Genitouriary Lactate Level 06/14/22 08:05: Lactic Acid Level 1.64 Time of Focused Exam: 12:30 Respiratory: Lungs Clear, No Accessory Muscle Use Cardiovascular: Regular Rate, Rhythm, Normal Peripheral Pulses Capillary Refill: Less Than 3 Seconds Peripheral Pulses: 2+ Radial Pulses (R), 2+ Radial Pulses (L) Skin: normal color, warm/dry Lactic Acid Level Laboratory Tests Test 06/14/22 08:05 Lactic Acid Level 1.64 MMOL/L (0.50-2.00) Within 3hrs of presentation: Admin fluids, Admin 30ml/kg IBW due to BMI>30, Admin ABX, Blood cultures prior to ABX's, Focus exam, Lactate level Departure Communication (Admissions) Time/Spoke to Admitting Phy: 12:30 Discussed the case with Dr. Farfan and he agrees to admit the patient for IV antibiotics. Impression Primary Impression: Fall Qualified Codes: W19.XXXA - Unspecified fall, initial encounter Additional Impressions: Contusion of right knee, initial encounter UTI (urinary tract infection) Qualified Codes: N30.01 - Acute cystitis with hematuria Sepsis Qualified Codes: A41.9 - Sepsis, unspecified organism Disposition: ADMITTED INPATIENT Condition: Stable Admissions Decision to Admit Reason: Admit from ER (General) Decision to Admit/Date: Jun 14, 2022 Time/Decision to Admit Time: 12:25 Departure-Patient Inst. Referrals: FAUSTINA FARFAN MD (PCP/Family) Primary Care Physician HERI RICHARDS Jun 14, 2022 08:06
[2022-06-14 08:20] LABS: BASOPHILS # (AUTO) 0.1 10^3/uL (0.0-0.1); BASOPHILS % (AUTO) 0 % (0-10); EOSINOPHILS % (AUTO) 0 % (0-10); HEMATOCRIT 42 % (40-54); HEMOGLOBIN 14.4 g/dL (13.3-17.7); LYMPHOCYTES # (AUTO) 0.5 10^3/uL (1.0-4.0); LYMPHOCYTES % (AUTO) 4 % (12-44); MEAN CORPUSCULAR HEMOGLOBIN 31 pg (25-34); MEAN CORPUSCULAR HGB CONC 35 g/dL (32-36); MEAN CORPUSCULAR VOLUME 90 fL (80-99); MEAN PLATELET VOLUME 9.6 fL (9.0-12.2); MONOCYTES # (AUTO) 1.3 10^3/uL (0.0-1.0); MONOCYTES % (AUTO) 11 % (0-12); NEUTROPHILS # (AUTO) 10.4 10^3/uL (1.8-7.8); NEUTROPHILS % (AUTO) 84 % (42-75); PLATELET COUNT 177 10^3/uL (130-400); WHITE BLOOD COUNT 12.3 10^3/uL (4.3-11.0)
[2022-06-14 08:30] LABS: POTASSIUM 3.9 MMOL/L (3.6-5.0)
[2022-06-14 08:31] LABS: CALCIUM 10.7 MG/DL (8.5-10.1)
[2022-06-14 08:34] LABS: BILIRUBIN,TOTAL 1.9 MG/DL (0.1-1.0); INR 1.4 (0.8-1.4); PROTHROMBIN TIME PATIENT 17.3 SEC (12.2-14.7)
[2022-06-14 08:36] LABS: CREATININE SERUM 1.07 MG/DL (0.60-1.30)
[2022-06-14 08:45] LABS: BAND NEUTROPHILS 6 %; BASOPHILS % (MANUAL) 0 %; ELLIPT/OVALOCYTES SLIGHT; EOSINOPHILS % (MANUAL) 1 %; LYMPHOCYTES % (MANUAL) 8 %; MONOCYTES % (MANUAL) 9 %; NEUTROPHILS % (MANUAL) 76 %
--- NOTE | 2022-06-14 09:08 | Diagnostic Imaging Report ---
HISTORY: Fall, right chest pain, fever COMPARISON: 12/31/2021 TECHNIQUE: Frontal view of the chest FINDINGS: Lung volumes are large. No consolidation is seen. There is no pleural effusion or pneumothorax. There is mild cardiomegaly. Sternotomy wires and post-CABG changes are seen. Left-sided pacemaker leads appear normal. No displaced fractures are seen. IMPRESSION: 1. No acute pulmonary abnormality is seen. Dictated by: Dictated on workstation # [id number]
--- NOTE | 2022-06-14 09:08 | Diagnostic Imaging Report ---
HISTORY: Right hip pain TECHNIQUE: 2 views of the right hip COMPARISON: None FINDINGS: No acute fracture or dislocation is seen in the right hip. Alignment appears normal. There are mild degenerative changes in the hip joint. There is calcific atherosclerosis. IMPRESSION: 1. No acute osseous abnormality is seen in the right hip. Dictated by: Dictated on workstation # [id number]
--- NOTE | 2022-06-14 09:10 | Diagnostic Imaging Report ---
HISTORY: Right ankle pain after a fall. TECHNIQUE: Three views of the right ankle. COMPARISON: None. FINDINGS: No acute fracture or dislocation is seen in the right ankle. Alignment appears normal. Joint spaces are preserved. There is calcific atherosclerosis. There are mild degenerative changes in the midfoot. There are plantar and posterior calcaneal enthesophytes. No cortical erosions are seen. There is mild soft tissue swelling about the right ankle. IMPRESSION: Mild soft tissue swelling about the right ankle with no acute osseous abnormality seen. Dictated by: Dictated on workstation # [id number]
--- NOTE | 2022-06-14 09:13 | Diagnostic Imaging Report ---
CLINICAL INDICATION: Patient fell and does not think he hit head. EXAM: Head CT without IV contrast with sagittal and coronal reformations. Axial CT scan of the cervical spine with sagittal and coronal reformations. Auto Exposure Controls were utilized during the CT exam to meet ALARA standards for radiation dose reduction. COMPARISON: None. FINDINGS: HEAD CT: There is no evidence of acute cerebral infarct, intracranial hemorrhage, or gross mass effect. The brain parenchymal volume appears appropriate for patient's age. There are multiple focal patchy areas of low-attenuation white matter changes involving both thalami and right arita radiata region. There are patchy and confluent areas of low attenuation regions of both cerebral hemispheres, likely representing chronic small vessel ischemic disease and leukoaraiosis. There is normal nolan-white matter distinction. There is no significant midline shift or herniation. There is no evidence of hydrocephalus. The basal cisterns are unremarkable. The skull, extracranial soft tissue, and orbits are unremarkable. The paranasal sinuses are unremarkable. Temporal bones show no significant abnormality. Cervical spine: There is no acute cervical spine fracture. There is grade 1 anterolisthesis of C4 on C5, C5 on C6, and C6 on C7 with no pars defect. Chronic displaced fractures involving the spinous process of the C7 and T1 vertebrae. There are multilevel cervical spine vertebral body spurs and facet arthropathy. There is no significant prevertebral soft tissue swelling. There are multiple nodular areas involving the bilateral parotid gland regions with the largest one measuring 11 mm x 6 mm in the superficial portion of the right parotid gland region. Multiple focal calcifications involving the left parotid gland are noted. The visualized upper lung cortez are clear. The remainder of the neck soft tissue structures is unremarkable. Poor dentition is noted. IMPRESSION: 1: There is no evidence of an acute intracranial process. There is no skull fracture. 2: There is no acute cervical spine fracture. 3: There is multilevel cervical spine degenerative disease. Dictated by: Dictated on workstation # [id number]
--- NOTE | 2022-06-14 09:13 | Diagnostic Imaging Report ---
HISTORY: Right knee pain TECHNIQUE: 3 views of the right knee COMPARISON: None FINDINGS: No acute fracture is seen in the right knee. Alignment appears normal. There is marked degenerative change in the lateral compartment and mild in the medial compartment. There are mild degenerative changes in the patellofemoral compartment. There is a small right knee joint effusion. There are multiple joint bodies, with a larger joint body seen anteriorly measuring 1 cm in size. There is calcific atherosclerosis. IMPRESSION: 1. 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 2. Small right knee joint effusion with joint bodies. Dictated by: Dictated on workstation # [id number]
[2022-06-14] MEDS ORDERED: fentaNYL INJ 100 MCG/2 ML AMP IVP ONE (09:30)
[2022-06-14 11:58] LABS: BILIRUBIN,URINE NEGATIVE (NEGATIVE); CLARITY,URINE CLOUDY; COLOR,URINE YELLOW; GLUCOSE, URINE (UA) NEGATIVE (NEGATIVE); KETONES,URINE NEGATIVE (NEGATIVE); LEUKOCYTE ESTERASE ,URINE 2+ (NEGATIVE); NITRITE,URINE POSITIVE (NEGATIVE); PROTEIN,URINE 2+ (NEGATIVE)
[2022-06-14 12:08] LABS: BACTERIA,URINE MODERATE /HPF; WBC,URINE TNTC /HPF
[2022-06-14] MEDS ORDERED: ACETAMINOPHEN 500 MG TAB (TYLENOL) PO ONE (12:45)
[2022-06-14] MEDS ORDERED: ACETAMINOPHEN 325 MG TABLET PO PRN (14:00)
[2022-06-14] MEDS ORDERED: TROLAMINE (ASPERCREME) 10% CR 90 GM TUBE TOP PRN (14:00)
[2022-06-14] MEDS: NS IV 1000 ML 1,000 ML IV SCH ×2 (14:09→22:09)
[2022-06-14] MEDS: HYDROcodone/APAP 5 MG/325 MG (LORTAB) TAB PO PRN (14:10)
--- NOTE | 2022-06-14 14:54 | Physical Therapy Evaluation ---
PT Evaluation-General Medical Diagnosis Admission Date Jun 14, 2022 at 12:40 Medical Diagnosis: fall, right knee contusion Onset Date: Jun 14, 2022 Therapy Diagnosis Therapy Diagnosis: impaired mobility, pain Height/Weight Height (Feet): 5 Height (Inches): 11.00 Weight (Pounds): 219 Weight (Ounces): 0.0 Precautions Precautions/Isolations: Standard Precautions Referral Physician: Rolly Reason for Referral: Evaluation/Treatment Medical History Pertinent Medical History: Atrial Fib, CABG, CAD, DM, HTN Additional Medical History Past Medical History Surgeries: Yes (OPEN PROSTATE SURGERY, CATARACTS) Appendectomy, CABG, Pacemaker Respiratory: No Chronic Bronchitis Cardiac: Yes (QUAD BYPASS, pacemaker) Coronary Artery Disease, Heart Attack, Hypertension Neurological: No Reproductive Disorders: No Sexually Transmitted Disease: No HIV/AIDS: No Genitourinary: Yes Benign Prostatic Hyperpl, Kidney Stones Gastrointestinal: Yes Gastroesophageal Reflux, Hemorrhoids Musculoskeletal: Yes (history of fx ribs) Arthritis Endocrine: Yes Diabetes, Non-Insulin dep HEENT: Yes Cataract Loss of Vision: Denies Cancer: Yes Melanoma What Type of Treatment Did You: Surgical Intervention Psychosocial: Yes Depression Integumentary: Yes (melanoma R neck) Blood Disorders: No Social History Home: Single Level Current Living Status: Spouse Entry Into Home: Stairs Without Railing PT Steps Into Home: 5 Prior Prior Level of Function SCALE: Activities may be completed with or without assistive devices. 8-Zwuhachyee-einlfzy completes the activity by him/herself with no assistance from a helper. 5-Set-up or Clean-up Assistance-helper sets up or cleans up; patient completes activity. [place] assists only prior to or following the activity. 4-Supervision or Touching Assistance-helper provides verbal cues and/or touching/steadying and/or contact guard assistance as patient completes activity. Assistance may be provided throughout the activity or intermittently. 3-Partial/Moderate Assistance-helper does LESS THAN HALF the effort. [place] lifts, holds or supports trunk or limbs, but provides less than half the effort. 2-Substantial/Maximal Assistance-helper does MORE THAN HALF the effort. [place] lifts or holds trunk or limbs and provides more than half the effort. 4-Npujfduzi-wfmzec does ALL the effort. Patient does none of the effort to complete the activity. Or, the assistance of 2 or more helpers is required for the patient to complete the activity. If activity was not attempted, code reason: 7-Patient Refused. 9-Not Applicable-not attempted and the patient did not perform the activity before the current illness, exacerbation or injury. 10-Not Attempted due to Environmental Limitations-(lack of equipment, weather restraints, etc.). 88-Not Attempted due to Medical Conditions or Safety Concerns. Bed Mobility: 6 Transfers (B,C,W/C): 6 Gait: 6 Stairs: 6 Indoor Mobility (Ambulation): Independent Stairs: Independent used quad cane PT Evaluation-Current Subjective Patient in recliner pre tx, agrees to PT, has unrated pain in right knee. Patient is emotionally labile. Pt/Family Goals none stated Objective Patient Orientation: Person, Confused Sensory Hearing: Functional Sensation Right Lower Extremit: Intact Sensation Left Lower Extremity: Intact Transfers Sit to Stand (QC): 3 Chair/Eao-ic-Agivq Xfer(QC): 3 mod assist for sit to stand and min assist for transfers, patient needs many cues for safety and positioning, he is confused and needs cues to stay on task Gait Does the Patient Walk?: Yes Mode of Locomotion: Walk Anticipated Mode of Locomotion: Walk Walk 10 feet (QC): 4 Distance: 10' Gait Assistive Device: FWW Comments/Gait Description CGA, patient cannot bear much weight on right LE, bears weight through arms, antalgic ambulation, poor step through Balance Sitting Static: Normal Sitting Dynamic: Normal Standing Static: Poor Standing Dynamic: Poor Treatment RLE LAQ x10, patient is confused and has difficulty following directions for further exercises, wants to talk about other things Assessment/Needs Patient in recliner post tx with nurse call, phone, tray, chair alarm on. Patient has impaired mobility, strength, endurance, he is very confused but can ambulate a bit. Rehab Potential: Fair PT Furniture Upholsterer Goals Furniture Upholsterer Goals PT Nursing Home Goals Time Frame: Jun 21, 2022 Roll Left & Right (QC): 6 Sit to Lying (QC): 6 Lying-Sitting on Side/Bed(QC): 6 Sit to Stand (QC): 4 Chair/Fki-ks-Qevqk Xfer(QC): 4 Walk 10 feet (QC): 4 Walk 50ft with 2 Turns (QC): 4 PT Plan Problem List Problem List: Activity Tolerance, Functional Strength, Safety, Balance, Gait, Transfer, Bed Mobility, ROM Treatment/Plan Treatment Plan: Continue Plan of Care Treatment Plan: Bed Mobility, Education, Functional Activity Melva, Functional Strength, Gait, Safety, Therapeutic Exercise, Transfers Treatment Duration: Jun 21, 2022 Frequency: 6 times per week Estimated Hrs Per Day: .25 hour per day Patient and/or Family Agrees t: Yes Safety Risks/Education Patient Education: Gait Training, Transfer Techniques, Correct Positioning, Safety Issues Teaching Recipient: Patient Teaching Methods: Demonstration, Discussion Response to Teaching: Reinforcement Needed Discharge Recommendations Plan Patient will perform bed mobility and transfer training, balance and endurance training, functional strengthening, stair training, gait training, and education, to improve functional mobility and independence at home. Therapy Discharge Recommendati: Scheduled Assistance, Home & Family, Post Acute PT Time/GCodes Time In: 1430 Time Out: 1442 Total Billed Treatment Time: 12 Total Billed Treatment 1 visit ITZ SHANNON PT Jun 14, 2022 14:54
--- NOTE | 2022-06-14 14:55 | Occupational Therapy Eval ---
OT Evaluation-General/PLF Medical Diagnosis Admission Date Jun 14, 2022 at 12:40 Medical Diagnosis: UTI/sepsis Onset Date: Jun 14, 2022 Therapy Diagnosis Therapy Diagnosis: reduced adl status Height/Weight Height (Feet): 5 Height (Inches): 11.00 Weight (Pounds): 219 Weight (Ounces): 0.0 Precautions Precautions/Isolations: Fall Prevention, Standard Precautions Referral Referral Reason: Evaluation/Treatment Medical History Pertinent Medical History: Atrial Fib, CABG, CAD, DM, Dementia, HTN Current History Per chart, pt presents to ER following a fall where he slipped on his own urine. Pt is a poor historian, very tangential, unable to provide all PLOF. He does state he lives with his in a single story home and was using a quad cane. Reviewed History: Yes Social History Home: Single Level Current Living Status: Spouse Entry Into Home: Stairs With Railing Steps Into Home: 5 ADL-Prior Level of Function SCALE: Activities may be completed with or without assistive devices. 3-Gxemyawnfg-anjpaaj completes the activity by him/herself with no assistance from a helper. 5-Set-up or Clean-up Assistance-helper sets up or cleans up; patient completes activity. [place] assists only prior to or following the activity. 4-Supervision or Touching Assistance-helper provides verbal cues and/or touching/steadying and/or contact guard assistance as patient completes activity. Assistance may be provided throughout the activity or intermittently. 3-Partial/Moderate Assistance-helper does LESS THAN HALF the effort. [place] lifts, holds or supports trunk or limbs, but provides less than half the effort. 2-Substantial/Maximal Assistance-helper does MORE THAN HALF the effort. [place] lifts or holds trunk or limbs and provides more than half the effort. 5-Valssjtam-dwvxms does ALL the effort. Patient does none of the effort to complete the activity. Or, the assistance of 2 or more helpers is required for the patient to complete the activity. If activity was not attempted, code reason: 7-Patient Refused. 9-Not Applicable-not attempted and the patient did not perform the activity before the current illness, exacerbation or injury. 10-Not Attempted due to Environmental Limitations-(lack of equipment, weather restraints, etc.). 88-Not Attempted due to Medical Conditions or Safety Concerns. Self Care: Unknown Functional Cognition: Unknown OT Current Status Subjective Pt cries out in pain when lowering legs. He does not give a numerical value. Appearance Pt returned to sitting in chair, alarm set, RN in room at OT departure. Mental Status/Objective Patient Orientation: Person, Confused Attachments: IV Current Glasses/Contacts: Yes Upper Extremity ROM unable to follow commands ADL-Treatment On/Off Footwear (QC): 3 Pt is very tangential; poor topic maintenance and emotional labile. Several cues to redirect back to task. With time and cues, he was able to don/doff L sock with cross over method. Dependent to don R sock secondary to pain in ankle, knee and hip. No acute fractures or dislocations per imaging. Max a to stand, CGA-min a once upright. Poor step through and weigh bearing through RLE. Heavy reliance on BUE support, thus anticipate assist needed for all functional tasks such as clothing management. Poor activity tolerance, needing to sit and rest after minimal activity. Poor eccentric control, needing assist to safely lower back to chair. Education OT Patient Education: Correct positioning, Modified ADL techniques, Purpose of tx/functional activities, Rehab process, Safety issues, Transfer techniques Teaching Recipient: Patient Teaching Methods: Demonstration, Discussion Response to Teaching: Verbalize Understanding, Return Demonstration, Reinforcement Needed OT Scroll Machine Operator Goals Scroll Machine Operator Goals Time Frame: Jun 28, 2022 Eating (QC): 4 Oral Hygiene (QC): 4 Toileting Hygiene (QC): 4 Shower/Bathe Self (QC): 4 Upper Body Dressing (QC): 4 Lower Body Dressing (QC): 4 On/Off Footwear (QC): 4 1=Demonstrate adherence to instructed precautions during ADL tasks. 2=Patient will verbalize/demonstrate understanding of assistive devices/modifications for ADL. 3=Patient will improve strength/tolerance for activity to enable patient to perform ADL's. OT Education/Plan Problem List/Assessment Assessment: Decreased Activ Tolerance, Decreased Safety Aware, Decreased UE Strength, Dependent Transfers, Edema, Impaired Cognition, Impaired Funct Balance, Impaired Self-Care Skills Discharge Recommendations Plan/Recommendations: Continue POC Therapy Discharge Recommendati: Post Acute OT Treatment Plan/Plan of Care Treatment,Training & Education: Yes Patient would benefit from OT for education, treatment and training to promote independence in ADL's, mobility, safety and/or upper extremity function for ADL's. Plan of Care: ADL Retraining, Caregiver Training, Cognitive Retraining, Functional Mobility, Group Exercise/Act as Ind, UE Funct Exercise/Act Treatment Duration: Jun 28, 2022 Frequency: 3 times per week (3-5x/week) Estimated Hrs Per Day: .25 hour per day Time/GCodes Start Time: 14:21 Stop Time: 14:41 Total Time Billed (hr/min): 20 Billed Treatment Time 1 visit Gavi Gay OT Jun 14, 2022 14:55
[2022-06-14] MEDS ORDERED: HYDR25TA4 PO (15:46)
[2022-06-14] MEDS ORDERED: ASPI-1238 PO (15:46)
[2022-06-14] MEDS ORDERED: APIX2.5T PO (15:46)
--- NOTE | 2022-06-14 15:53 | History & Physicial ---
History of Present Illness History of Present Illness Reason for visit/HPI 86-year-old male brought to the emergency department by his after apparently taking a fall. He fell after slipping in his urine after having an accident. He apparently had a fever of 100.8 yesterday evening. He does take Eliquis since he does have known coronary artery disease. He apparently did not strike his head and he does not complaining of any head or neck pain. Date of Admission Jun 14, 2022 at 12:40 Date Seen by a Provider: Jun 14, 2022 Time Seen by a Provider: 16:10 I consulted on this patient on 06/14/22 15:50 Attending Physician Bob Farfan MD Admitting Physician Admitting Physician: Bob Farfan MD Attending Physician: Bob Farfan MD Consult Allergies and Home Medications Allergies Coded Allergies: No Known Drug Allergies (Unverified , 05/01/13) Patient Home Medication List Home Medication List Reviewed: Yes Amlodipine Besylate (Amlodipine Besylate) 10 Mg Tablet, 10 MG PO DAILY, (Reported) Entered as Reported by: YOHAN FIERRO on 10/25/181318 Last Action: Reviewed Apixaban (Eliquis) 2.5 Mg Tablet, 2.5 MG PO BID, (Reported) Entered as Reported by: RODDY LA on 06/14/221545 Last Action: Reviewed Aspirin (Aspirin EC) 81 Mg Tablet.dr, 81 MG PO DAILY, (Reported) Entered as Reported by: RODDY LA on 06/14/221545 Last Action: Reviewed Atorvastatin Calcium (Atorvastatin Calcium) 20 Mg Tablet, 20 MG PO DAILY, (Reported) Entered as Reported by: YOHAN FIERRO on 10/25/181318 Last Action: Reviewed Glimepiride (Glimepiride) 2 Mg Tablet, 2 MG PO DAILY, (Reported) Entered as Reported by: YOHAN FIERRO on 10/25/181318 Last Action: Reviewed Hydrochlorothiazide (Hydrochlorothiazide) 25 Mg Tablet, 25 MG PO DAILY, (Reported) Entered as Reported by: RODDY LA on 06/14/221545 Last Action: Reviewed Lisinopril (Lisinopril) 40 Mg Tablet, 40 MG PO DAILY, (Reported) Entered as Reported by: YOHAN FIERRO on 10/25/181318 Last Action: Reviewed Metformin HCl (Metformin HCl) 500 Mg Tablet, 500 MG PO BID WITH MEALS, (Reported) Entered as Reported by: YOHAN FIERRO on 10/25/181318 Last Action: Reviewed Metoprolol Succinate (Metoprolol Succinate) 50 Mg Tab.er.24h, 25 MG PO DAILY, (Reported) Entered as Reported by: YOHAN FIERRO on 10/27/20855 Last Action: Reviewed Tamsulosin HCl (Flomax) 0.4 Mg Cap, 0.4 MG PO DAILY, (Reported) Entered as Reported by: YOHAN FIERRO on 10/27/20855 Last Action: Reviewed Discontinued Medications Cephalexin (Keflex) 500 Mg Capsule, 500 MG PO TID Discontinued Reason: No Longer Taking Prescribed by: KYLAH FERNANDEZ on 10/29/20957 Last Action: Discontinued Hydrocodone/Acetaminophen (Hydrocodone-Acetamin 5-325 mg) 1 Each Tablet, 1 EACH PO Q4H PRN for PAIN-MODERATE (5-7) Discontinued Reason: No Longer Taking Prescribed by: KYLAH FERNANDEZ on 10/29/20957 Last Action: Discontinued Past Pvboroy-Gnromj-Zaqiig Hx Patient Social History Marrital Status: Recent Hopitalizations: No Have you traveled recently?: No Alcohol Use?: No Pt feels they are or have been: No Immunizations Up To Date Tetanus Booster (TDap): More than 5yrs Pediatric: No Date of Pneumonia Vaccine: Jun 23, 2012 Date of Influenza Vaccine: Jul 22, 2020 Seasonal Allergies Seasonal Allergies: No Surgeries Yes (OPEN PROSTATE SURGERY, CATARACTS) Appendectomy, CABG, Pacemaker Respiratory No Cardiovascular Yes (QUAD BYPASS, pacemaker) Coronary Artery Disease, Heart Attack, Hypertension Neurological No Reproductive System Hx Reproductive Disorders: No Sexually Transmitted Disease: No HIV/AIDS: No Genitourinary Yes Benign Prostatic Hyperpl, Kidney Stones Gastrointestinal Yes Gastroesophageal Reflux, Hemorrhoids Musculoskeletal Yes (history of fx ribs) Arthritis Endocrine History of Endocrine Disorders: Yes Endocrine Disorders: Diabetes, Non-Insulin dep HEENT History of HEENT Disorders: Yes HEENT Disorders: Cataract Loss of Vision: Denies Cancer Yes Melanoma Type of Treatment: Surgical Intervention Psychosocial History of Psychiatric Problem: Yes Behavioral Health Disorders: Depression Integumentary History of Skin or Integumenta: Yes (melanoma R neck) Blood Transfusions History of Blood Disorders: No Review of Systems Constitutional: see HPI Physical Exam Vital Signs Vital Signs - First Documented 06/14/22 07:50 Temp 36.6 Pulse 74 Resp 16 B/P (MAP) 136/75 (95) Pulse Ox 97 O2 Delivery Room Air Capillary Refill : Less Than 3 Seconds Height, Weight, BMI Height: 5'11.00" Weight: 219lbs. 0.0oz. 99.528293du; 27.95 BMI Method:Stated General Appearance: No Apparent Distress Comments [facility] [place] NAME: VICTORIA VERAS [facility] REC#: [id number] PT STATUS: REG ER : 1935 PHYSICIAN: HERI RICHARDS MD ADMIT DATE: 06/14/22/ER Draft Date of Exam:06/14/22 CT HEAD/CERVICAL SPINE WO CLINICAL INDICATION: Patient fell and does not think he hit head. EXAM: Head CT without IV contrast with sagittal and coronal reformations. Axial CT scan of the cervical spine with sagittal and coronal reformations. Auto Exposure Controls were utilized during the CT exam to meet ALARA standards for radiation dose reduction. COMPARISON: None. FINDINGS: HEAD CT: There is no evidence of acute cerebral infarct, intracranial hemorrhage, or gross mass effect. The brain parenchymal volume appears appropriate for patient's age. There are multiple focal patchy areas of low-attenuation white matter changes involving both thalami and right arita radiata region. There are patchy and confluent areas of low attenuation regions of both cerebral hemispheres, likely representing chronic small vessel ischemic disease and leukoaraiosis. There is normal nolan-white matter distinction. There is no significant midline shift or herniation. There is no evidence of hydrocephalus. The basal cisterns are unremarkable. The skull, extracranial soft tissue, and orbits are unremarkable. The paranasal sinuses are unremarkable. Temporal bones show no significant abnormality. Cervical spine: There is no acute cervical spine fracture. There is grade 1 anterolisthesis of C4 on C5, C5 on C6, and C6 on C7 with no pars defect. Chronic displaced fractures involving the spinous process of the C7 and T1 vertebrae. There are multilevel cervical spine vertebral body spurs and facet arthropathy. There is no significant prevertebral soft tissue swelling. There are multiple nodular areas involving the bilateral parotid gland regions with the largest one measuring 11 mm x 6 mm in the superficial portion of the right parotid gland region. Multiple focal calcifications involving the left parotid gland are noted. The visualized upper lung cortez are clear. The remainder of the neck soft tissue structures is unremarkable. Poor dentition is noted. IMPRESSION: 1: There is no evidence of an acute intracranial process. There is no skull fracture. 2: There is no acute cervical spine fracture. 3: There is multilevel cervical spine degenerative disease. Dictated on workstation # [id number] Dict: 06/14/22 0852 Trans: 06/14/22 0913 [id number] Interpreted by: MEL LAMB MD Electronically signed by: Assessment/Plan Assessment and Plan 1. Acute cystitis and this appears to be related to urinary tract infection with early sepsis -patient will be initiated on IV fluids as well as IV ceftriaxone 1 g daily -Urine culture to follow 2. Fall with resultant contusion to the knee -Physical therapy and occupational therapy 3. Coronary artery diseaseknown and on Eliquis -Continue with his home medications 4. Diabetesknown -Continue with home medications -We'll place on insulin sliding scale Admission Diagnosis 1. Acute cystitis and this appears to be related to urinary tract infection with early sepsis 2. Fall with resultant contusion to the knee 3. Coronary artery diseaseknown and on Eliquis 4. Diabetesknown Admission Status: Inpatient Order (span 2 midnights) Reason for Inpatient Admission: he is admitted for IV fluids as well as IV antibiotics. Monitor CBC. He will also have OT and physical therapy consult at [facility] FARFAN MD Jun 14, 2022 15:53
[2022-06-14 16:41] VITALS: BP 104/59
[2022-06-14] MEDS: inSUlin ASPART (NovoLOG) 1 UNIT/0.01 ML (CHARGE PER UNIT) SC SCH ×2 (17:15→20:14)
[2022-06-14 19:46] VITALS: BP 102/57
[2022-06-14] MEDS: APIXABAN 5 MG (ELIQUIS) TABLET PO SCH (20:14)
[2022-06-14 23:11] VITALS: BP 122/63
[2022-06-15 03:08] VITALS: BP 157/72
[2022-06-15 05:59] LABS: BASOPHILS % (AUTO) 0 % (0-10); EOSINOPHILS # (AUTO) 0.1 10^3/uL (0.0-0.3); EOSINOPHILS % (AUTO) 1 % (0-10); HEMATOCRIT 37 % (40-54); HEMOGLOBIN 12.8 g/dL (13.3-17.7); LYMPHOCYTES # (AUTO) 0.7 10^3/uL (1.0-4.0); LYMPHOCYTES % (AUTO) 9 % (12-44); MEAN CORPUSCULAR HEMOGLOBIN 31 pg (25-34); MEAN CORPUSCULAR HGB CONC 34 g/dL (32-36); MEAN CORPUSCULAR VOLUME 91 fL (80-99); MONOCYTES # (AUTO) 0.6 10^3/uL (0.0-1.0); MONOCYTES % (AUTO) 9 % (0-12); NEUTROPHILS # (AUTO) 5.8 10^3/uL (1.8-7.8); NEUTROPHILS % (AUTO) 80 % (42-75); PLATELET COUNT 164 10^3/uL (130-400); WHITE BLOOD COUNT 7.2 10^3/uL (4.3-11.0)
[2022-06-15] MEDS: NS IV 1000 ML 1,000 ML IV SCH ×2 (06:05→15:38)
[2022-06-15 06:30] LABS: CALCIUM 9.5 MG/DL (8.5-10.1); CREATININE SERUM 0.82 MG/DL (0.60-1.30); POTASSIUM 3.7 MMOL/L (3.6-5.0)
[2022-06-15] MEDS: inSUlin ASPART (NovoLOG) 1 UNIT/0.01 ML (CHARGE PER UNIT) SC SCH ×4 (06:33→21:05)
[2022-06-15 07:32] VITALS: BP 151/84
--- NOTE | 2022-06-15 08:09 | Progress Note ---
Subjective Date Seen by a Provider: Jun 15, 2022 Time Seen by a Provider: 07:30 Subjective/Events-last exam patient rested comfortably throughout the night. He still is having dizziness. His dizziness has been ongoing over the past several months. No reported fever overnight. He is trying to drink fluids. Focused Exam Lactate Level 06/14/22 08:05: Lactic Acid Level 1.64 Time of Focused Exam: 12:30 Objective Exam Vital Signs Date Time Temp Pulse Resp B/P (MAP) Pulse Ox O2 Delivery O2 Flow Rate FiO2 06/15/22 07:32 37.6 76 16 151/84 (106) 91 Room Air 06/15/22 03:08 37.4 69 18 157/72 (100) 94 Room Air 06/14/22 23:11 37.4 70 18 122/63 (82) 96 Room Air 06/14/22 20:59 Room Air 06/14/22 19:46 37.2 70 17 102/57 (72) 96 Room Air 06/14/22 17:17 Room Air 06/14/22 16:41 36.9 66 17 104/59 (74) 95 Room Air 06/14/22 13:25 36.7 74 16 153/96 96 Room Air 06/14/22 12:52 36.6 06/14/22 09:31 36.6 I & O 06/15/22 07:00 Intake Total 2210 ml Output Total 800 ml Balance 1410 ml Capillary Refill : Less Than 3 Seconds General Appearance: No Apparent Distress HEENT: Pharynx Normal Respiratory: Lungs Clear Cardiovascular: Regular Rate, Rhythm Gastrointestinal: non tender, soft Extremity: Normal Capillary Refill Neurologic/Psychiatric: Alert, Oriented x3 Results Lab Laboratory Tests 06/14/22 10:43: Urine Color YELLOW, Urine Clarity CLOUDY, Urine pH 7.0, Urine Specific Matthews 1.015L, Urine Protein 2+H, Urine Glucose (UA) NEGATIVE, Urine Ketones NEGATIVE, Urine Nitrite POSITIVEH, Urine Bilirubin NEGATIVE, Urine Urobilinogen 4.0, Urine Leukocyte Esterase 2+H, Urine RBC (Auto) 2+H, Urine RBC 2-5H, Urine WBC TNTCH, Urine Squamous Epithelial Cells 2-5, Urine Crystals NONE, Urine Bacteria MODERATEH, Urine Casts NONE, Urine Mucus NEGATIVE, Urine Culture Indicated YES 06/14/22 16:30: Glucometer 233H 06/14/22 20:03: Glucometer 107 06/15/22 05:25: White Blood Count 7.2, Red Blood Count 4.10L, Hemoglobin 12.8L, Hematocrit 37L, Mean Corpuscular Volume 91, Mean Corpuscular Hemoglobin 31, Mean Corpuscular Hemoglobin Concent 34, Red Cell Distribution Width 13.1, Platelet Count 164, Mean Platelet Volume 10.0, Immature Granulocyte % (Auto) 0, Neutrophils (%) (Auto) 80H, Lymphocytes (%) (Auto) 9L, Monocytes (%) (Auto) 9, Eosinophils (%) (Auto) 1, Basophils (%) (Auto) 0, Neutrophils # (Auto) 5.8, Lymphocytes # (Auto) 0.7L, Monocytes # (Auto) 0.6, Eosinophils # (Auto) 0.1, Basophils # (Auto) 0.0, Immature Granulocyte # (Auto) 0.0, Sodium Level 138, Potassium Level 3.7, Chloride Level 109H, Carbon Dioxide Level 21, Anion Gap 8, Blood Urea Nitrogen 17, Creatinine 0.82, Estimat Glomerular Filtration Rate 86, BUN/Creatinine Ratio 21, Glucose Level 106H, Calcium Level 9.5 Assessment/Plan Assessment/Plan Assess & Plan/Chief Complaint 1. Acute cystitis and this appears to be related to urinary tract infection w ith early sepsis -patient will be initiated on IV fluids as well as IV ceftriaxone 1 g daily -Urine culture to follow 06/15 -Day #2 IV ceftriaxone -Urine cultures are pending -decrease IV fluids as his oral intake improves 2. Fall with resultant contusion to the knee -Physical therapy and occupational therapy 06/15 -his dizziness appears to be partially responsible for his falls. He has had significant bradycardia in the past but he now has pacemaker. -Ongoing physical therapy. He seems determined to be walking again 3. Coronary artery diseaseknown and on Eliquis -Continue with his home medications 4. Diabetesknown -Continue with home medications -We'll place on insulin sliding scale Clinical Quality Measures Admission Status Admission Dx 1. Acute cystitis and this appears to be related to urinary tract infection with early sepsis 2. Fall with resultant contusion to the knee 3. Coronary artery diseaseknown and on Eliquis 4. Diabetesknown FAUSTINA FARFAN MD Jun 15, 2022 08:09
[2022-06-15] MEDS: APIXABAN 5 MG (ELIQUIS) TABLET PO SCH ×2 (08:44→20:01)
[2022-06-15] MEDS: HYDROcodone/APAP 5 MG/325 MG (LORTAB) TAB PO PRN (08:44)
[2022-06-15] MEDS: cefTRIAXone 1 GM PRE-MIX 50 ML IV SCH (08:45)
--- NOTE | 2022-06-15 10:13 | Physical Therapy Daily Note ---
PT Daily Note-Current Subjective Patient in recliner pre tx, agrees to PT, patient won't answer if he has pain, he talks about things unrelated to therapy or asked of him. Appearance Patient in recliner post tx with nurse call, phone, tray, chair alarm on, family in room. Mental Status Patient Orientation: Person, Confused Attachments: IV Transfers SCALE: Activities may be completed with or without assistive devices. 4-Etdnswjuun-tsobklz completes the activity by him/herself with no assistance from a helper. 5-Set-up or Clean-up Assistance-helper sets up or cleans up; patient completes activity. [place] assists only prior to or following the activity. 4-Supervision or Touching Assistance-helper provides verbal cues and/or touching/steadying and/or contact guard assistance as patient completes activity. Assistance may be provided throughout the activity or intermittently. 3-Partial/Moderate Assistance-helper does LESS THAN HALF the effort. [place] lifts, holds or supports trunk or limbs, but provides less than half the effort. 2-Substantial/Maximal Assistance-helper does MORE THAN HALF the effort. [place] lifts or holds trunk or limbs and provides more than half the effort. 8-Wsazccwdm-bsztgg does ALL the effort. Patient does none of the effort to complete the activity. Or, the assistance of 2 or more helpers is required for the patient to complete the activity. If activity was not attempted, code reason: 7-Patient Refused. 9-Not Applicable-not attempted and the patient did not perform the activity before the current illness, exacerbation or injury. 10-Not Attempted due to Environmental Limitations-(lack of equipment, weather restraints, etc.). 88-Not Attempted due to Medical Conditions or Safety Concerns. Sit to Stand (QC): 3 Chair/Zqa-uw-Brrde Xfer(QC): 3 mod assist for sit to stand, min assist to transfer (assisted with turning) back to recliner Gait Training Distance: 30' Walk 10 feet (QC): 3 Gait Persons Needed: 1 Gait Assistive Device: FWW antalgic, slumped posture, cannot bear much weight on right leg Exercises Seated Therapy Exercises: Ankle pumps, Long arc quads Seated Reps: 15 (pain with LAQ on right side) Assessment Current Status: Fair Progress slightly improved distance of ambulation PT Mcfp Goals Exhibitions Curator Goals PT Mcfp Goals Time Frame: Jun 21, 2022 Roll Left & Right (QC): 6 Sit to Lying (QC): 6 Lying-Sitting on Side/Bed(QC): 6 Sit to Stand (QC): 4 Chair/Ulw-zw-Dtzza Xfer(QC): 4 Walk 10 feet (QC): 4 Walk 50ft with 2 Turns (QC): 4 PT Plan Problem List Problem List: Activity Tolerance, Functional Strength, Safety, Balance, Gait, Transfer, Bed Mobility, ROM Treatment/Plan Treatment Plan: Continue Plan of Care Treatment Plan: Bed Mobility, Education, Functional Activity Melva, Functional Strength, Gait, Safety, Therapeutic Exercise, Transfers Treatment Duration: Jun 21, 2022 Frequency: 6 times per week Estimated Hrs Per Day: .25 hour per day Patient and/or Family Agrees t: Yes Safety Risks/Education Patient Education: Gait Training, Transfer Techniques, Correct Positioning, Safety Issues Teaching Recipient: Patient Teaching Methods: Demonstration, Discussion Response to Teaching: Reinforcement Needed Time/GCodes Time In: 0947 Time Out: 1000 Total Billed Treatment Time: 13 Total Billed Treatment 1 visit FA Alea' ITZ PEARSON PT Jun 15, 2022 10:13
[2022-06-15 11:01] VITALS: BP 116/71
--- NOTE | 2022-06-15 14:52 | Occupational Ther Daily Note ---
OT Current Status-Daily Note Subjective Pt asleep but easily woke to name. Pt agrees to therapy. No c/o pain at this time. Mental Status/Objective Patient Orientation: Person, Place, Time, Situation Attachments: IV ADL-Treatment Pt supine to EOB with HOB raised, SBA. Pt completed 2 B UE exercises against gravity, 2 sets of 10 reps to increase strength for daily functional tasks. Skilled instruction given for proper technique. Pt required visual representation and physical cues throughout each set to continue with proper t echnique. Pt rocked back and forth 4 times to stand from EOB, then mod A to side step to HOB. CGA EOB to supine. Pt left lying on side in bed, call light/phone in reach. All needs met. Safety measures in place. Therapy Code Descriptions/Definitions Functional [place] Measure: 0=Not Assessed/NA 4=Minimal Assistance 1=Total Assistance 5=Supervision or Setup 2=Maximal Assistance 6=Modified [place] 3=Moderate Assistance 7=Complete IndependenceSCALE: Activities may be completed with or without assistive devices. 2-Uqwodbzgrd-arlitze completes the activity by him/herself with no assistance from a helper. 5-Set-up or Clean-up Assistance-helper sets up or cleans up; patient completes activity. [place] assists only prior to or following the activity. 4-Supervision or Touching Assistance-helper provides verbal cues and/or touching/steadying and/or contact guard assistance as patient completes activity. Assistance may be provided throughout the activity or intermittently. 3-Partial/Moderate Assistance-helper does LESS THAN HALF the effort. [place] lifts, holds or supports trunk or limbs, but provides less than half the effort. 2-Substantial/Maximal Assistance-helper does MORE THAN HALF the effort. [place] lifts or holds trunk or limbs and provides more than half the effort. 9-Pajnqcrvw-tlngkb does ALL the effort. Patient does none of the effort to complete the activity. Or, the assistance of 2 or more helpers is required for the patient to complete the activity. If activity was not attempted, code reason: 7-Patient Refused. 9-Not Applicable-not attempted and the patient did not perform the activity before the current illness, exacerbation or injury. 10-Not Attempted due to Environmental Limitations-(lack of equipment, weather restraints, etc.). 88-Not Attempted due to Medical Conditions or Safety Concerns. OT Shelter Goals Shelter Goals Time Frame: Jun 28, 2022 Eating (QC): 4 Oral Hygiene (QC): 4 Toileting Hygiene (QC): 4 Shower/Bathe Self (QC): 4 Upper Body Dressing (QC): 4 Lower Body Dressing (QC): 4 On/Off Footwear (QC): 4 1=Demonstrate adherence to instructed precautions during ADL tasks. 2=Patient will verbalize/demonstrate understanding of assistive devices/modifications for ADL. 3=Patient will improve strength/tolerance for activity to enable patient to perform ADL's. OT Education/Plan Problem List/Assessment Assessment: Decreased Activ Tolerance, Decreased UE Strength, Impaired Bed Mobility, Impaired Coordination, Impaired Funct Balance Discharge Recommendations Plan/Recommendations: Continue POC Treatment Plan/Plan of Care Patient would benefit from OT for education, treatment and training to promote independence in ADL's, mobility, safety and/or upper extremity function for ADL's. Plan of Care: ADL Retraining, Caregiver Training, Cognitive Retraining, Functional Mobility, Group Exercise/Act as Ind, UE Funct Exercise/Act Treatment Duration: Jun 28, 2022 Frequency: 3 times per week (3-5x/week) Estimated Hrs Per Day: .25 hour per day Rehab Potential: Fair Time/GCodes Start Time: 14:05 Stop Time: 14:26 Total Time Billed (hr/min): 21 Billed Treatment Time 1 Visit Ex 1 (21 min) BELLA MERINO Jun 15, 2022 14:52
[2022-06-15 16:01] VITALS: BP 131/72
[2022-06-15 20:02] VITALS: BP 143/74
[2022-06-16 00:39] VITALS: BP 123/66
[2022-06-16 04:01] VITALS: BP 159/85
[2022-06-16] MEDS: inSUlin ASPART (NovoLOG) 1 UNIT/0.01 ML (CHARGE PER UNIT) SC SCH (06:09)
[2022-06-16 07:44] VITALS: BP 159/77
[2022-06-16] MEDS ORDERED: CEPH250T PO (08:02)
--- NOTE | 2022-06-16 08:03 | Discharge Inst-Simple/Standard ---
Discharge Inst-Standard Reconcile Patient Problems Problems Reviewed?: Yes Discharge Medications New, Converted or Re-Newed RX: Transmitted to Pharmacy ([facility]) Patient Instructions/Follow Up Plan of Care/Instructions/FU: Dr Farfan in 1 week Activity as Tolerated: Yes Discharge Diet: ADA Diet Return to The Hospital For: Persistent fever, abdominal pain, or burning on urination FAUSTINA FARFAN MD Jun 16, 2022 08:03
--- NOTE | 2022-06-16 08:05 | Discharge Summary ---
Diagnosis/Chief Complaint Date of Admission Jun 14, 2022 at 12:40 Date of Discharge Discharge Date: Jun 16, 2022 Admission Diagnosis Admission Diagnosis 1. Acute cystitis and this appears to be related to urinary tract infection with early sepsis 2. Fall with resultant contusion to the knee 3. Coronary artery diseaseknown and on Eliquis 4. Diabetesknown Discharge Diagnosis 1. Acute cystitis and this appears to be related to urinary tract infection with early sepsis 2. Fall with resultant contusion to the knee 3. Coronary artery diseaseknown and on Eliquis 4. Diabetesknown Reason Hospital Visit 86-year-old male brought to the emergency department by his after apparently taking a fall. He fell after slipping in his urine after having an accident. He apparently had a fever of 100.8 yesterday evening. He does take Eliquis since he does have known coronary artery disease. He apparently did not strike his head and he does not complaining of any head or neck pain. Discharge Summary Hospital Course Hospital Course 1. Acute cystitis and this appears to be related to urinary tract infection with early sepsis -patient will be initiated on IV fluids as well as IV ceftriaxone 1 g daily -Urine culture to follow 06/15 -Day #2 IV ceftriaxone -Urine cultures are pending -decrease IV fluids as his oral intake improves 2. Fall with resultant contusion to the knee -Physical therapy and occupational therapy 06/15 -his dizziness appears to be partially responsible for his falls. He has had significant bradycardia in the past but he now has pacemaker. -Ongoing physical therapy. He seems determined to be walking again 3. Coronary artery diseaseknown and on Eliquis -Continue with his home medications 4. Diabetesknown -Continue with home medications -We'll place on insulin sliding scale Labs Laboratory Tests 06/14/22 08:05: White Blood Count 12.3H, Neutrophils (%) (Auto) 84H, Lymphocytes (%) (Auto) 4L, Neutrophils # (Auto) 10.4H, Lymphocytes # (Auto) 0.5L, Monocytes # (Auto) 1.3H, Prothrombin Time 17.3H, Activated Partial Thromboplast Time 37H, Blood Urea Nitrogen 19H, Glucose Level 160H, Calcium Level 10.7H, Corrected Calcium 10.7H, Total Bilirubin 1.9H 06/14/22 10:43: Urine Specific [place] 1.015L, Urine Protein 2+H, Urine Nitrite POSITIVEH, Urine Leukocyte Esterase 2+H, Urine RBC (Auto) 2+H, Urine RBC 2-5H, Urine WBC TNTCH, Urine Bacteria MODERATEH 06/14/22 16:30: Glucometer 233H 06/14/22 20:03: 06/15/22 05:25: Red Blood Count 4.10L, Hemoglobin 12.8L, Hematocrit 37L, Neutrophils (%) (Auto) 80H, Lymphocytes (%) (Auto) 9L, Lymphocytes # (Auto) 0.7L, Chloride Level 109H, Glucose Level 106H 06/15/22 10:58: Glucometer 206H 06/15/22 15:27: Glucometer 191H 06/15/22 21:02: Glucometer 175H 06/16/22 06:08: Glucometer 130H Procedures None. Discharge Physical Examination Allergies: Coded Allergies: No Known Drug Allergies (Unverified , 05/01/13) Vitals & I&Os Vital Signs Date Time Temp Pulse Resp B/P (MAP) Pulse Ox O2 Delivery O2 Flow Rate FiO2 06/16/22 07:44 36.8 71 16 159/77 (104) 98 Room Air Discharge Home Medications Reviewed and agree with Discharge Medication list on patient's Discharge Instruction sheet Instructions to Patient/Family Please see electronic discharge instructions given to patient. FAUSTINA FARFAN MD Jun 16, 2022 08:05
[2022-06-16] MEDS: APIXABAN 5 MG (ELIQUIS) TABLET PO SCH (09:25)
[2022-06-16] MEDS: cefTRIAXone 1 GM PRE-MIX 50 ML IV SCH (09:25)
--- NOTE | 2022-06-16 09:45 | Physical Therapy Daily Note ---
PT Daily Note-Current Subjective Patient agrees to PT. Mental Status Patient Orientation: Normal For Age Transfers SCALE: Activities may be completed with or without assistive devices. 4-Erkmeakzax-pbcgdks completes the activity by him/herself with no assistance from a helper. 5-Set-up or Clean-up Assistance-helper sets up or cleans up; patient completes activity. [place] assists only prior to or following the activity. 4-Supervision or Touching Assistance-helper provides verbal cues and/or touching/steadying and/or contact guard assistance as patient completes activity. Assistance may be provided throughout the activity or intermittently. 3-Partial/Moderate Assistance-helper does LESS THAN HALF the effort. [place] lifts, holds or supports trunk or limbs, but provides less than half the effort. 2-Substantial/Maximal Assistance-helper does MORE THAN HALF the effort. [place] lifts or holds trunk or limbs and provides more than half the effort. 3-Yqbsihwse-aperwg does ALL the effort. Patient does none of the effort to complete the activity. Or, the assistance of 2 or more helpers is required for the patient to complete the activity. If activity was not attempted, code reason: 7-Patient Refused. 9-Not Applicable-not attempted and the patient did not perform the activity befo re the current illness, exacerbation or injury. 10-Not Attempted due to Environmental Limitations-(lack of equipment, weather re straints, etc.). 88-Not Attempted due to Medical Conditions or Safety Concerns. Sit to Stand (QC): 3 Gait Training Distance: 15' x 1/150' x 1 Walk 10 feet (QC): 4 Walk 50 ft with 2 Turns(QC): 4 Walk 150 ft (QC): 4 Gait Assistive Device: FWW slow, slightly antalgic with right LE Assessment PT assisted patient with dressing due to dismissing to home with spouse on this date. Patient remains up in recliner with needs met. PT Vice President Of Marketing Goals Vice President Of Marketing Goals PT Usp Goals Time Frame: Jun 21, 2022 Roll Left & Right (QC): 6 Sit to Lying (QC): 6 Lying-Sitting on Side/Bed(QC): 6 Sit to Stand (QC): 4 Chair/Gbe-tb-Wsniy Xfer(QC): 4 Walk 10 feet (QC): 4 Walk 50ft with 2 Turns (QC): 4 PT Plan Treatment/Plan Treatment Plan: Discontinue PT Treatment Plan: Bed Mobility, Education, Functional Activity Melva, Functional Strength, Gait, Safety, Therapeutic Exercise, Transfers Treatment Duration: Jun 21, 2022 Frequency: 6 times per week Estimated Hrs Per Day: .25 hour per day Patient and/or Family Agrees t: Yes Time/GCodes Time In: 920 Time Out: 929 Total Billed Treatment Time: 9 Total Billed Treatment 1 visit FA 9 min ASHLYN AJ PT Jun 16, 2022 09:45
[2022-06-16 10:08] VITALS: BP 159/77
== END 2022-06-16 10:08 | disposition home or self-care (01) ==
LOC: EDUNIT# 07:47 → ER 07:50 → INTOOBSV 12:40 → 4TH 12:40 → UNDOADMOB 12:40 → 4TH 15:30 → UNDODISOB 06-16 10:08
PROVIDERS: ADMIT Family Medicine; ATTEND Family Medicine
DX: N30.00 Acute cystitis without hematuria (principal); I25.10 Atherosclerotic heart disease of native coronary artery without angina pectoris; E11.9 Type 2 diabetes mellitus without complications; Z79.01 Long term (current) use of anticoagulants; W20.8XXA Other cause of strike by thrown, projected or falling object, initial encounter; Z79.899 Other long term (current) drug therapy; Z79.84 Long term (current) use of oral hypoglycemic drugs
CPT/HCPCS: 70450; 71045; 72125; 73502; 73562; 73610; 80048; 80053; 81000; 82947 ×3; 83605; 85007; 85025; 85027; 85610; 85730; 87040; 87088; 96361 ×3; 96365; 96375; 96376; 97162; 97166; 97530 ×2; 99284; G0378; 36415

== ENCOUNTER → 2022-08-23 | Outpatient (CLI) | payer MEDICARE ==
[~2022-08-23] MED LIST changes: +ASPI-1238 PO
== END ==
LOC: CARD 09:50
PROVIDERS: ATTEND Physician Assistant
DX: I34.0 Nonrheumatic mitral (valve) insufficiency (principal); I25.10 Atherosclerotic heart disease of native coronary artery without angina pectoris; I11.9 Hypertensive heart disease without heart failure
CPT/HCPCS: 93306

== ENCOUNTER 2022-08-31 05:57 | Observation (INO) | payer MEDICARE ==
[~2022-08-31] VITALS: Ht 172.7 cm; Wt 92.5 kg
--- NOTE | 2022-08-31 06:43 | ED General ---
General Chief Complaint: General Problems/Pain Stated Complaint: PAIN Nursing Triage Note: Pt presents with c/o behavioral complaints by family, aggitation and not sleeping well Pt has had 3 falls over the past month. Pt aox3 upon arrival, cooperative Source of Information: Patient, Family Exam Limitations: Physical Impairments History of Present Illness Date Seen by Provider: Aug 31, 2022 Time Seen by Provider: 06:43 Allergies and Home Medications Allergies Coded Allergies: No Known Drug Allergies (Unverified , 05/01/13) Patient Home Medication List Amlodipine Besylate (Amlodipine Besylate) 10 Mg Tablet, 10 MG PO DAILY, (Reported) Entered as Reported by: YOHAN FIRERO on 10/25/18 1319 Apixaban (Eliquis) 2.5 Mg Tablet, 2.5 MG PO BID, (Reported) Entered as Reported by: RODDY LA on 06/14/22 1546 Aspirin (Aspirin EC) 81 Mg Tablet.dr, 81 MG PO DAILY, (Reported) Entered as Reported by: RODDY LA on 06/14/22 1546 Atorvastatin Calcium (Atorvastatin Calcium) 20 Mg Tablet, 20 MG PO DAILY, (Reported) Entered as Reported by: YOHAN FIERRO on 10/25/18 1319 Cephalexin (Cephalexin) 250 Mg Tablet, 250 MG PO TID Prescribed by: FAUSTINA FARFAN on 06/16/22 0802 Glimepiride (Glimepiride) 2 Mg Tablet, 2 MG PO DAILY, (Reported) Entered as Reported by: YOHAN FIERRO on 10/25/18 1319 Hydrochlorothiazide (Hydrochlorothiazide) 25 Mg Tablet, 25 MG PO DAILY, (Reported) Entered as Reported by: RODDY LA on 06/14/22 1546 Lisinopril (Lisinopril) 40 Mg Tablet, 40 MG PO DAILY, (Reported) Entered as Reported by: YOHAN FIERRO on 10/25/18 1319 Metformin HCl (Metformin HCl) 500 Mg Tablet, 500 MG PO BID WITH MEALS, (Reported) Entered as Reported by: YOHAN FIERRO on 10/25/18 1319 Metoprolol Succinate (Metoprolol Succinate) 50 Mg Tab.er.24h, 25 MG PO DAILY, (Reported) Entered as Reported by: YOHAN FIERRO on 10/27/20 0856 Tamsulosin HCl (Flomax) 0.4 Mg Cap, 0.4 MG PO DAILY, (Reported) Entered as Reported by: YOHAN FIERRO on 10/27/20 0856 Past Ahgvbyw-Wjcouy-Bgrdwd Hx Immunizations Up To Date Tetanus Booster (TDap): More than 5yrs PED Vaccines UTD: No First/Initial COVID19 Vaccinat: 2020 Second COVID19 Vaccination Bro[place]: 2020 Seasonal Allergies Seasonal Allergies: No Past Medical History Surgery/Hospitalization HX: APPY, CABGX4, DM, AFIB, ARTHRITIS, PACEMAKER, HTN, URINARY RETENTION Surgeries: Yes (OPEN PROSTATE SURGERY, CATARACTS) Appendectomy, CABG, Pacemaker Respiratory: No Chronic Bronchitis Cardiac: Yes (QUAD BYPASS, pacemaker) Coronary Artery Disease, Heart Attack, Hypertension Neurological: No Reproductive Disorders: No Sexually Transmitted Disease: No HIV/AIDS: No Genitourinary: Yes Benign Prostatic Hyperpl, Kidney Stones Gastrointestinal: Yes Gastroesophageal Reflux, Hemorrhoids Musculoskeletal: Yes (history of fx ribs) Arthritis Endocrine: Yes Diabetes, Non-Insulin dep HEENT: Yes Cataract Loss of Vision: Denies Cancer: Yes Melanoma What Type of Treatment Did You: Surgical Intervention Psychosocial: Yes Depression Integumentary: Yes (melanoma R neck) Blood Disorders: No Physical Exam Vital Signs Vital Signs - First Documented 08/31/22 06:06 Temp 36.8 Pulse 70 Resp 18 B/P (MAP) 158/73 (101) Capillary Refill : Less Than 3 Seconds Height, Weight, BMI Height: 5'11.00" Weight: 219lbs. 0.0oz. 99.720289as; 27.95 BMI Method:Stated Progress/Results/Core Measures Suspected Sepsis SIRS Temperature: Pulse: 70 Respiratory Rate: 18 Blood Pressure 158 /73 Mean: 101 Results/Orders My Orders Orders - SHMUEL LOOMIS MD Ed Iv/Invasive Line Start (08/31/22 06:52) Ua Culture If Indicated (08/31/22 06:52) Pelvis With Right Hip 2-3views (08/31/22 06:52) Cbc With Automated Diff (08/31/22 06:52) Basic Metabolic Panel (08/31/22 06:52) Fentanyl Inj (Sublimaze Injection) (08/31/22 07:00) Ondansetron Injection (Zofran Injectio (08/31/22 07:00) Ct Head Wo (08/31/22 06:52) Vital Signs/I&O 08/31/22 06:06 Temp 36.8 Pulse 70 Resp 18 B/P (MAP) 158/73 (101) Capillary Refill : Less Than 3 Seconds Blood Pressure Mean: 101 Departure Departure-Patient Inst. Referrals: FAUSTINA FARFAN MD (PCP/Family) Primary Care Physician SHMUEL LOOMIS MD Aug 31, 2022 06:43
[2022-08-31] MEDS ORDERED: ONDANSETRON 4 MG/2 ML (SDV) Z0FRAN IVP ONE (07:00)
[2022-08-31] MEDS ORDERED: fentaNYL INJ 100 MCG/2 ML AMP IVP ONE (07:00)
--- NOTE | 2022-08-31 07:05 | ED General ---
General Chief Complaint: General Problems/Pain Stated Complaint: PAIN Nursing Triage Note: Pt presents with c/o behavioral complaints by family, aggitation and not sleeping well Pt has had 3 falls over the past month. Pt aox3 upon arrival, cooperative Source of Information: Patient, Family (daughter) Exam Limitations: No Limitations (MARIA LUZ CABRERA) History of Present Illness Date Seen by Provider: Aug 31, 2022 Time Seen by Provider: 06:45 Initial Comments Patient is an 87 y/o M with history of chronic pain, arthritis, DM Type 2, and HTN who presents for CC of right hip pain onset after a fall about a week ago. Patient's daughter reports patient went to [facility] after falling onto his right hip where he had a right hip Xray done. XR showed no bony abnormalities to be present. No head imaging was done at that time. Since then, patient has been having constant right hip pain that is mostly dull but sharp at times. He states it is about an 8 or 9 out of 10 and does not radiate anywhere else. Daughter states he has been receiving 500mg Tylenol (last dose 1:30 AM) which does not seem to be helping. He is AxO x3 but admits to being more "confused in his mind" lately. Daughter also reports that after his first fall in May, the patient was found to have a UTI which was cared for here at [facility]. She states that the patient began to become confused again last night to the point where he thought his family was going to kill him. Patient complains of having "problems with his kidneys again" that are causing him to urinate more frequently. Patient lives with his at home. He is on Eliquis. He denies any other complaints at this time. Location Injury Occurred: Right Hip Timing/Duration: 1 Week, Constant Severity: Moderate Modifying Factors: improves with Movement (some positions alleviate pain briefly) Associated Systoms: No Chest Pain; Fever/Chills, Shortness of Air, Other (frequent urination) (MARIA LUZ CABRERA) Allergies and Home Medications Allergies Coded Allergies: No Known Drug Allergies (Unverified , 05/01/13) Patient Home Medication List Home Medication List Reviewed: Yes (MARIA LUZ CABRERA) Home Medication List Reviewed: Yes (SHMUEL LOOMIS MD) Amlodipine Besylate (Amlodipine Besylate) 10 Mg Tablet, 10 MG PO DAILY, (Reported) Entered as Reported by: YOHAN FIERRO on 10/25/18 1319 Apixaban (Eliquis) 2.5 Mg Tablet, 2.5 MG PO BID, (Reported) Entered as Reported by: RODDY LA on 06/14/22 1546 Aspirin (Aspirin EC) 81 Mg Tablet.dr, 81 MG PO DAILY, (Reported) Entered as Reported by: RODDY LA on 06/14/22 1546 Atorvastatin Calcium (Atorvastatin Calcium) 20 Mg Tablet, 20 MG PO DAILY, (Reported) Entered as Reported by: YOHAN FIERRO on 10/25/18 1319 Cephalexin (Cephalexin) 250 Mg Tablet, 250 MG PO TID Prescribed by: FAUSTINA FARFAN on 06/16/22 0802 Glimepiride (Glimepiride) 2 Mg Tablet, 2 MG PO DAILY, (Reported) Entered as Reported by: YOHAN FIERRO on 10/25/18 1319 Hydrochlorothiazide (Hydrochlorothiazide) 25 Mg Tablet, 25 MG PO DAILY, (Reported) Entered as Reported by: RODDY LA on 06/14/22 1546 Lisinopril (Lisinopril) 40 Mg Tablet, 40 MG PO DAILY, (Reported) Entered as Reported by: YOHAN FIERRO on 10/25/18 1319 Metformin HCl (Metformin HCl) 500 Mg Tablet, 500 MG PO BID WITH MEALS, (Reported) Entered as Reported by: YOHAN FIERRO on 10/25/18 1319 Metoprolol Succinate (Metoprolol Succinate) 50 Mg Tab.er.24h, 25 MG PO DAILY, (Reported) Entered as Reported by: YOHAN FIERRO on 10/27/20 0856 Tamsulosin HCl (Flomax) 0.4 Mg Cap, 0.4 MG PO DAILY, (Reported) Entered as Reported by: YOHAN FIERRO on 10/27/20 0856 Review of Systems Review of Systems Constitutional: No chills, No diaphoresis; fever EENTM: no symptoms reported Respiratory: No cough; short of breath Cardiovascular: No chest pain, No palpitations Gastrointestinal: no symptoms reported Genitourinary: No dysuria; frequency; No hematuria Musculoskeletal: joint pain (hx of arthritis), other (right hip pain) Skin: no symptoms reported Psychiatric/Neurological: Other (confusion) Hematologic/Lymphatic: No Symptoms Reported Immunological/Allergic: no symptoms reported (MARIA LUZ CABRERA) Past Pinromw-Tgtcar-Blfkpj Hx Immunizations Up To Date Tetanus Booster (TDap): More than 5yrs PED Vaccines UTD: No First/Initial COVID19 Vaccinat: 2020 Second COVID19 Vaccination Brody: 2020 (MARIA LUZ CABRERA) Seasonal Allergies Seasonal Allergies: No (MARIA LUZ CABRERA) Past Medical History Surgery/Hospitalization HX: APPY, CABGX4, DM, AFIB, ARTHRITIS, PACEMAKER, HTN, URINARY RETENTION Surgeries: Yes (OPEN PROSTATE SURGERY, CATARACTS) Appendectomy, CABG, Pacemaker Respiratory: No Chronic Bronchitis Cardiac: Yes (QUAD BYPASS, pacemaker) Coronary Artery Disease, Heart Attack, Hypertension Neurological: No Reproductive Disorders: No Sexually Transmitted Disease: No HIV/AIDS: No Genitourinary: Yes Benign Prostatic Hyperpl, Kidney Stones Gastrointestinal: Yes Gastroesophageal Reflux, Hemorrhoids Musculoskeletal: Yes (history of fx ribs) Arthritis Endocrine: Yes Diabetes, Non-Insulin dep HEENT: Yes Cataract Loss of Vision: Denies Cancer: Yes Melanoma What Type of Treatment Did You: Surgical Intervention Psychosocial: Yes Depression Integumentary: Yes (melanoma R neck) Blood Disorders: No (MARIA LUZ CABRERA) Physical Exam Vital Signs Vital Signs - First Documented 08/31/22 06:06 Temp 36.8 Pulse 70 Resp 18 B/P (MAP) 158/73 (101) (SHMUEL LOOMIS MD) Vital Signs Capillary Refill : Less Than 3 Seconds (MARIA LUZ CABRERA) Height, Weight, BMI Height: 5'11.00" Weight: 219lbs. 0.0oz. 99.330110nv; 27.95 BMI Method:Stated General Appearance: No Apparent Distress, WD/WN HEENT: Moist Mucous Membranes Respiratory: Chest Non Tender, Lungs Clear, Normal Breath Sounds, No Accessory Muscle Use, No Respiratory Distress Cardiovascular: Regular Rate, Rhythm, No JVD, Other (bilateral posterior tibial pulses +1/3) Back: Normal Inspection, No Vertebral Tenderness Extremity: No Calf Tenderness, Pedal Edema (+1), Slow Capillary Refill, Swelling (BLE +1 pitting edema ) Neurologic/Psychiatric: Alert, Oriented x3, Other (mild confusion according to family) Skin: Cool, Ecchymosis (large dark purple right lateral thigh bruise), Pallor (SUBBARAO,MARIA LUZ) Progress/Results/Core Measures Suspected Sepsis SIRS Temperature: Pulse: 70 Respiratory Rate: 18 Laboratory Tests 08/31/22 07:20: White Blood Count 5.0 Blood Pressure 158 /73 Mean: 101 Laboratory Tests 08/31/22 07:20: Creatinine 0.99, Platelet Count 208 (SUBBARAO,MARIA LUZ) Results/Orders Lab Results Laboratory Tests Test 08/31/22 06:39 08/31/22 07:20 Range/Units Urine Color YELLOW Urine Clarity CLOUDY Urine pH 7.5 5-9 Urine Specific Almond 1.020 1.016-1.022 Urine Protein 2+ H NEGATIVE Urine Glucose (UA) NEGATIVE NEGATIVE Urine Ketones NEGATIVE NEGATIVE Urine Nitrite NEGATIVE NEGATIVE Urine Bilirubin NEGATIVE NEGATIVE Urine Urobilinogen 1.0 < = 1.0 MG/DL Urine Leukocyte Esterase 3+ H NEGATIVE Urine RBC (Auto) 1+ H NEGATIVE Urine RBC 2-5 H /HPF Urine WBC TNTC H /HPF Urine Squamous Epithelial Cells NONE /HPF Urine Crystals NONE /LPF Urine Bacteria LARGE H /HPF Urine Casts NONE /LPF Urine Mucus NEGATIVE /LPF Urine Culture Indicated YES White Blood Count 5.0 4.3-11.0 10^3/uL Red Blood Count 3.28 L 4.30-5.52 10^6/uL Hemoglobin 10.0 L 13.3-17.7 g/dL Hematocrit 31 L 40-54 % Mean Corpuscular Volume 94 80-99 fL Mean Corpuscular Hemoglobin 31 25-34 pg Mean Corpuscular Hemoglobin Concent 33 32-36 g/dL Red Cell Distribution Width 14.4 10.0-14.5 % Platelet Count 208 130-400 10^3/uL Mean Platelet Volume 9.8 9.0-12.2 fL Immature Granulocyte % (Auto) 0 % Neutrophils (%) (Auto) 67 42-75 % Lymphocytes (%) (Auto) 17 12-44 % Monocytes (%) (Auto) 15 H 0-12 % Eosinophils (%) (Auto) 1 0-10 % Basophils (%) (Auto) 0 0-10 % Neutrophils # (Auto) 3.3 1.8-7.8 10^3/uL Lymphocytes # (Auto) 0.9 L 1.0-4.0 10^3/uL Monocytes # (Auto) 0.7 0.0-1.0 10^3/uL Eosinophils # (Auto) 0.0 0.0-0.3 10^3/uL Basophils # (Auto) 0.0 0.0-0.1 10^3/uL Immature Granulocyte # (Auto) 0.0 0.0-0.1 10^3/uL Sodium Level 141 135-145 MMOL/L Potassium Level 4.1 3.6-5.0 MMOL/L Chloride Level 109 H 98-107 MMOL/L Carbon Dioxide Level 24 21-32 MMOL/L Anion Gap 8 5-14 MMOL/L Blood Urea Nitrogen 24 H 7-18 MG/DL Creatinine 0.99 0.60-1.30 MG/DL Estimat Glomerular Filtration Rate 74 BUN/Creatinine Ratio 24 Glucose Level 92 70-105 MG/DL Calcium Level 10.4 H 8.5-10.1 MG/DL (SHMUEL LOOMIS MD) My Orders Orders - SHMUEL LOOMIS MD Ed Iv/Invasive Line Start (08/31/22 06:52) Ua Culture If Indicated (08/31/22 06:52) Pelvis With Right Hip 2-3views (08/31/22 06:52) Cbc With Automated Diff (08/31/22 06:52) Basic Metabolic Panel (08/31/22 06:52) Fentanyl Inj (Sublimaze Injection) (08/31/22 07:00) Ondansetron Injection (Zofran Injectio (08/31/22 07:00) Ct Head Wo (08/31/22 06:52) Urine Culture (08/31/22 06:39) Ct Pelvis Wo (08/31/22 08:06) Ns Iv 1000 Ml (Sodium Chloride 0.9%) (08/31/22 10:00) (SHMUEL LOOMIS MD) Medications Given in ED Current Medications Medications Dose Ordered Sig/Homero Route Start Time Stop Time Status Last Admin Dose Admin Fentanyl Citrate 50 mcg ONCE ONCE IVP 08/31/22 07:00 08/31/22 07:01 DC 08/31/22 07:26 50 MCG Ondansetron HCl 4 mg ONCE ONCE IVP 11/9/22 07:00 08/31/22 07:01 DC 08/31/22 07:26 4 MG (SHMUEL LOOMIS MD) Vital Signs/I&O 08/31/22 06:06 Temp 36.8 Pulse 70 Resp 18 B/P (MAP) 158/73 (101) (SHMUEL LOOMIS MD) Vital Signs/I&O Capillary Refill : Less Than 3 Seconds (SUBBARAO,MARIA LUZ) Blood Pressure Mean: 101 Progress Note : Time: 09:19 Progress Note 87-year-old male chief complaint generalized weakness and confusion today. Not sleeping well due to pain in his buttock after a fall 1 week ago. I have reviewed medical student's documentation and agree. I have performed my own HPI, physical exam. Evaluation today includes basic labs as well as CT of the head without contrast and CT pelvis as well as repeated plain films of the pelvis and right hip. No fractures are identified. He does have a large hematoma in the right gluteus muscle. His vital signs are stable. Will discuss with the family whether or not they may want to put him in rehab for some strengthening. No focal neurologic deficits. He is currently not confused. (SHMUEL LOOMIS MD) ECG Initial ECG Impression Date: Aug 31, 2022 Initial ECG Impression Time: 06:10 Initial ECG Rate: 70 Comment Ventricular paced rhythm, 70 bpm, diffuse ST-T wave flattening and inversion inferiorly in lead V5 V6 (SHMUEL LOOMIS MD) Diagnostic Imaging Comments NAME: EDAVICTORIA A MED REC#: [id number] PT STATUS: REG ER : 1935 PHYSICIAN: SHMUEL LOOMIS MD ADMIT DATE: 08/31/22/ER Draft Date of Exam:08/31/22 PELVIS WITH RIGHT HIP 2-3VIEWS INDICATION: Fall, pain COMPARISON: 09/09/2015 TECHNIQUE: 3 radiographs of the pelvis and right hip dated 08/31/2022 FINDINGS: The sacroiliac joints and pubic symphysis appear intact. No acute fracture or dislocation. No destructive osseous process. Mild degenerative changes of the bilateral hips. Moderate background vascular calcifications. The right femoral head maintains normal shape and contour. IMPRESSION: No acute osseous abnormality with mild scattered degenerative changes and moderate background vascular calcifications. Dictated on workstation # [id number] Dict: 08/31/22 0752 Trans: 08/31/22755 [facility] [id number] Interpreted by: VIOLET ANNA MD Electronically signed by: NAME: VICTORIA VERAS MED REC#: [id number] PT STATUS: REG ER : 1935 PHYSICIAN: SHMUEL LOOMIS MD ADMIT DATE: 08/31/22/ER Draft Date of Exam:08/31/22 CT HEAD WO PROCEDURE: CT head without contrast. TECHNIQUE: Multiple contiguous axial images were obtained through the brain without the use of intravenous contrast. Auto Exposure Controls were utilized during the CT exam to meet ALARA standards for radiation dose reduction. INDICATION: Altered mental status, confusion, prior trauma COMPARISON: 06/14/2020 FINDINGS: Mild atrophy. 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 Periventricular and subcortical white matter hypodensities are again identified, most consistent with mild background chronic small vessel white matter ischemic disease. No intracranial hemorrhage. No intracranial mass, mass effect, midline shift, herniation, hydrocephalus, or extra-axial fluid collection. No CT evidence of a new acute ischemic infarction. Bilateral ocular lenses are absent. Advanced background vascular calcifications. The paranasal sinuses are clear. The calvarium and extracalvarial soft tissues are unremarkable IMPRESSION: No acute intracranial abnormality. Background atrophy with moderate background chronic ischemic changes as above. Dictated on workstation # [id number] Dict: 08/31/22 0738 Trans: 08/31/22749 [facility] [id number] Interpreted by: VIOLET ANNA MD Electronically signed by: (MARIA LUZ CABRERA) Diagonstic Imaging: CT Diagonstic Imaging: CT Comments NAME: VICTROIA VERAS MED REC#: [id number] PT STATUS: REG ER : 1935 PHYSICIAN: SHMUEL LOOMIS MD ADMIT DATE: 08/31/22/ER Draft Date of Exam:08/31/22 CT PELVIS WO Clinical indication: Follow-up from fall a week ago. Rule out fracture. EXAM: CT scan of the pelvis performed without and with IV contrast. Sagittal and coronal reformatted images are created. Auto Exposure Controls were utilized during the CT exam to meet ALARA standards for radiation dose reduction. COMPARISON: CT scan of the abdomen and pelvis without contrast dated 09/09/2015. X-ray of the pelvis and right hip dated 08/31/2022. FINDINGS: There is no acute fracture or dislocation. There is soft tissue swelling and hematoma seen posterior to the right hip within the right gluteus muscles. This hematoma is lobulated and measures at least 6.1 cm x 8.4 cm in greatest axial dimension. The intrapelvic soft tissue structures are unremarkable. There is degenerative disease involving both hips with small degenerative spurs. There is enthesopathy involving the bilateral greater trochanter and ischium regions. IMPRESSION: 1: There is no acute fracture or dislocation pelvis or hips. There is a small to moderate size hematoma in the right posterior gluteus muscle adjacent to the right hip region. 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 Dictated on workstation # [id number] Dict: 08/31/22 0847 Trans: 08/31/22 0904 [id number] Interpreted by: MEL LAMB MD Electronically signed by: (SHMUEL LOOMIS MD) Departure Communication (Admissions) Time/Spoke to Admitting Phy: 10:[address] Farfan (SHMUEL LOOMIS MD) Impression Primary Impression: gluteal hematoma Additional Impressions: Chronic anticoagulation UTI (urinary tract infection) Qualified Codes: N39.0 - Urinary tract infection, site not specified Disposition: ADMITTED INPATIENT Condition: Stable Admissions Decision to Admit Reason: Admit from ER (General) Decision to Admit/Date: Aug 31, 2022 Time/Decision to Admit Time: 10:22 (SHMUEL LOOMIS MD) Departure-Patient Inst. Referrals: FAUSTINA FARFAN MD (PCP/Family) Primary Care Physician Verification and Attestation of Medical Student E/M Service A medical student performed and documented this service in my presence. I reviewed and verified all information documented by the medical student and made modifications to such information, when appropriate. I personally performed the physical exam and medical decision making. Shmuel Loomis, Aug 31, 2022,11:38 (SHMUEL LOOMIS MD) MARIA LUZ CABRERA Aug 31, 2022 07:05 SHMUEL LOOMIS MD Aug 31, 2022 09:17
[2022-08-31 07:15] LABS: BILIRUBIN,URINE NEGATIVE (NEGATIVE); CLARITY,URINE CLOUDY; COLOR,URINE YELLOW; GLUCOSE, URINE (UA) NEGATIVE (NEGATIVE); KETONES,URINE NEGATIVE (NEGATIVE); LEUKOCYTE ESTERASE ,URINE 3+ (NEGATIVE); NITRITE,URINE NEGATIVE (NEGATIVE); PH,URINE 7.5 (5-9); PROTEIN,URINE 2+ (NEGATIVE)
[2022-08-31 07:35] LABS: BASOPHILS % (AUTO) 0 % (0-10); EOSINOPHILS % (AUTO) 1 % (0-10); HEMATOCRIT 31 % (40-54); LYMPHOCYTES # (AUTO) 0.9 10^3/uL (1.0-4.0); LYMPHOCYTES % (AUTO) 17 % (12-44); MEAN CORPUSCULAR HEMOGLOBIN 31 pg (25-34); MEAN CORPUSCULAR HGB CONC 33 g/dL (32-36); MEAN CORPUSCULAR VOLUME 94 fL (80-99); MEAN PLATELET VOLUME 9.8 fL (9.0-12.2); MONOCYTES # (AUTO) 0.7 10^3/uL (0.0-1.0); MONOCYTES % (AUTO) 15 % (0-12); NEUTROPHILS # (AUTO) 3.3 10^3/uL (1.8-7.8); NEUTROPHILS % (AUTO) 67 % (42-75); PLATELET COUNT 208 10^3/uL (130-400)
[2022-08-31 07:37] LABS: BACTERIA,URINE LARGE /HPF; WBC,URINE TNTC /HPF
[2022-08-31 07:48] LABS: CALCIUM 10.4 MG/DL (8.5-10.1); CREATININE SERUM 0.99 MG/DL (0.60-1.30); POTASSIUM 4.1 MMOL/L (3.6-5.0)
--- NOTE | 2022-08-31 07:50 | Diagnostic Imaging Report ---
PROCEDURE: CT head without contrast. TECHNIQUE: Multiple contiguous axial images were obtained through the brain without the use of intravenous contrast. Auto Exposure Controls were utilized during the CT exam to meet ALARA standards for radiation dose reduction. INDICATION: Altered mental status, confusion, prior trauma COMPARISON: 06/14/2020 FINDINGS: Mild atrophy. 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 Periventricular and subcortical white matter hypodensities are again identified, most consistent with mild background chronic small vessel white matter ischemic disease. No intracranial hemorrhage. No intracranial mass, mass effect, midline shift, herniation, hydrocephalus, or extra-axial fluid collection. No CT evidence of a new acute ischemic infarction. Bilateral ocular lenses are absent. Advanced background vascular calcifications. The paranasal sinuses are clear. The calvarium and extracalvarial soft tissues are unremarkable IMPRESSION: No acute intracranial abnormality. Background atrophy with moderate background chronic ischemic changes as above. Dictated by: Dictated on workstation # [id number]
--- NOTE | 2022-08-31 07:56 | Diagnostic Imaging Report ---
INDICATION: Fall, pain COMPARISON: 09/09/2015 TECHNIQUE: 3 radiographs of the pelvis and right hip dated 08/31/2022 FINDINGS: The sacroiliac joints and pubic symphysis appear intact. No acute fracture or dislocation. No destructive osseous process. Mild degenerative changes of the bilateral hips. Moderate background vascular calcifications. The right femoral head maintains normal shape and contour. IMPRESSION: No acute osseous abnormality with mild scattered degenerative changes and moderate background vascular calcifications. Dictated by: Dictated on workstation # [id number]
--- NOTE | 2022-08-31 09:04 | Diagnostic Imaging Report ---
Clinical indication: Follow-up from fall a week ago. Rule out fracture. EXAM: CT scan of the pelvis performed without and with IV contrast. Sagittal and coronal reformatted images are created. Auto Exposure Controls were utilized during the CT exam to meet ALARA standards for radiation dose reduction. COMPARISON: CT scan of the abdomen and pelvis without contrast dated 09/09/2015. X-ray of the pelvis and right hip dated 08/31/2022. FINDINGS: There is no acute fracture or dislocation. There is soft tissue swelling and hematoma seen posterior to the right hip within the right gluteus muscles. This hematoma is lobulated and measures at least 6.1 cm x 8.4 cm in greatest axial dimension. The intrapelvic soft tissue structures are unremarkable. There is degenerative disease involving both hips with small degenerative spurs. There is enthesopathy involving the bilateral greater trochanter and ischium regions. IMPRESSION: 1: There is no acute fracture or dislocation pelvis or hips. There is a small to moderate size hematoma in the right posterior gluteus muscle adjacent to the right hip region. 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 Dictated by: Dictated on workstation # [id number]
[2022-08-31] MEDS ORDERED: NS IV 1000 ML 1,000 ML IV SCH (10:00)
[2022-08-31] MEDS ORDERED: cefTRIAXone 1 GM PRE-MIX 50 ML IV ONE (10:30)
[2022-08-31 11:58] VITALS: BP 124/69
[2022-08-31 12:03] VITALS: BP 124/69
[2022-08-31] MEDS ORDERED: RT-ALBUTEROL SULF 2.5 MG/3 ML PRE-MIX VIAL INH PRN (12:15)
--- NOTE | 2022-08-31 14:53 | Occupational Therapy Eval ---
OT Evaluation-General/PLF Medical Diagnosis Admission Date Aug 31, 2022 at 10:18 Medical Diagnosis: UTI, RLE pain, gluteal hematoma Onset Date: Aug 31, 2022 Therapy Diagnosis Therapy Diagnosis: decreased ADL status, weakness Height/Weight Height (Feet): 5 Height (Inches): 11.00 Weight (Pounds): 219 Weight (Ounces): 0.0 Precautions Precautions/Isolations: Fall Prevention, Standard Precautions Referral Physician: Rolly Referral Reason: Evaluation/Treatment Medical History Pertinent Medical History: Atrial Fib, CABG, CAD, DM, Dementia, HTN Additional Medical History arthritis, DM, HTN, CABG x4, afib, pacemaker, depression, urinary retention, CAD, HTN, [place], BPH, GERD, melanoma Current History ED with c/o R hip pain, 3 falls in last month. Social History Home: Single Level Current Living Status: Spouse Entry Into Home: Stairs With Railing Steps Into Home: 4 Pt reports living with his in [place], [place], they are planning on moving to [facility] in [place], [place] (FDC). ADL-Prior Level of Function SCALE: Activities may be completed with or without assistive devices. 6-Mbugkuxtnh-fayxyhb completes the activity by him/herself with no assistance from a helper. 5-Set-up or Clean-up Assistance-helper sets up or cleans up; patient completes activity. Snyder assists only prior to or following the activity. 4-Supervision or Touching Assistance-helper provides verbal cues and/or touching/steadying and/or contact guard assistance as patient completes activity. Assistance may be provided throughout the activity or intermittently. 3-Partial/Moderate Assistance-helper does LESS THAN HALF the effort. Snyder lifts, holds or supports trunk or limbs, but provides less than half the effort. 2-Substantial/Maximal Assistance-helper does MORE THAN HALF the effort. Snyder lifts or holds trunk or limbs and provides more than half the effort. 7-Qcbxfrpws-eraeja does ALL the effort. Patient does none of the effort to complete the activity. Or, the assistance of 2 or more helpers is required for the patient to complete the activity. If activity was not attempted, code reason: 7-Patient Refused. 9-Not Applicable-not attempted and the patient did not perform the activity before the current illness, exacerbation or injury. 10-Not Attempted due to Environmental Limitations-(lack of equipment, weather restraints, etc.). 88-Not Attempted due to Medical Conditions or Safety Concerns. ADL PLOF Comments Pt reports IND with ADLS and functional mobility using QC at OF. Over the last month, pt has had multiple falls, and has began using a walker, and required some assistance with ADLs . Self Care: Independent Functional Cognition: Independent OT Current Status Subjective Pt in bed, daughter at bedside. Agreeable to OT tx, unrated pain in R hip. Pt hyperverbal throughout tx, easily distracted with various stories requiring redirection to task/conversation. Mental Status/Objective Patient Orientation: Person, Place, Situation Attachments: IV Current Hand Dominance: Right Upper Extremity ROM WFL during tx Upper Extremity Strength grossly 3/5 ADL-Treatment Eating (QC): 6 (Per nursing report) On/Off Footwear (QC): 2 (Pt able to perform L gripper sock with max A. Total assist donning R gripper sock.) Toileting Hygiene (QC): 3 (Assist with balance in standing while using urinal. Pt able to manage gown and place urinal.) Other Treatments Pt in bed, transferred supine to sit EOB, min A. Pt donned footwear, max A overall. Pt had difficulty scooting towards EOB, requiring elevated bed and moderate assistance. Pt stood from elevated bed, min A. Pt managed hospital gown and placed urinal, min A standing balance during task due to pt leaning forward. Pt sat back on bed, completed another stand, mod A and took several side steps towards HOB, min A. Pt transferred supine, moderate assistance. Post tx, pt in bed, call light in reach and all needs met. Education OT Patient Education: Correct positioning, Energy conservation, Modified ADL techniques, Progress toward Goal/Update tx plan, Purpose of tx/functional activities Teaching Recipient: Patient Teaching Methods: Discussion Response to Teaching: Verbalize Understanding, Reinforcement Needed OT Medical Coding Technician Goals Medical Coding Technician Goals Time Frame: Sep 16, 2022 Eating (QC): 6 Oral Hygiene (QC): 5 Toileting Hygiene (QC): 4 Shower/Bathe Self (QC): 4 Upper Body Dressing (QC): 5 Lower Body Dressing (QC): 4 On/Off Footwear (QC): 3 Additional Goals: 1-Demonstrate ADL Tasks, 2-Verbalize Understanding, 3- ImproveStrength/Melva 1=Demonstrate adherence to instructed precautions during ADL tasks. 2=Patient will verbalize/demonstrate understanding of assistive devices/modifications for ADL. 3=Patient will improve strength/tolerance for activity to enable patient to perform ADL's. OT Education/Plan Problem List/Assessment Assessment: Decreased Activ Tolerance, Decreased UE Strength, Impaired Bed Mobility, Impaired Funct Balance, Impaired I ADL's, Impaired Self-Care Skills Pt would benefit from skilled OT services in order to increase BUE strength and activity tolerance and increase independence with ADLs and functional mobility to maximize LOF for safe return home (or FDC) with spouse. Discharge Recommendations Plan/Recommendations: Continue POC Treatment Plan/Plan of Care Patient would benefit from OT for education, treatment and training to promote independence in ADL's, mobility, safety and/or upper extremity function for ADL's. Plan of Care: ADL Retraining, Functional Mobility, UE Funct Exercise/Act Treatment Duration: Sep 16, 2022 Frequency: 3 times per week (3-5 times per week) Estimated Hrs Per Day: .25 hour per day Agreement: Yes Rehab Potential: Fair Time Start Time: 14:15 Stop Time: 14:43 DATE: Aug 31, 2022 Total Time Billed (hr/min): 28 Billed Treatment Time 1, EVM (10'), ADL (18') KIARRA DAI OT Aug 31, 2022 14:53
[2022-08-31] MEDS ORDERED: MTP25TSR PO (15:31)
[2022-08-31] MEDS ORDERED: ESCI-2 PO (15:31)
--- NOTE | 2022-08-31 15:39 | Physical Therapy Evaluation ---
PT Evaluation-General Medical Diagnosis Admission Date Aug 31, 2022 at 10:18 Medical Diagnosis: UTI, RLE pain, gluteal hematoma Onset Date: Aug 31, 2022 Therapy Diagnosis Therapy Diagnosis: Impaired mobility, generalized weakness Height/Weight Height (Feet): 5 Height (Inches): 11.00 Weight (Pounds): 219 Weight (Ounces): 0.0 Precautions Precautions/Isolations: Fall Prevention, Standard Precautions Weight Bear Status Right Lower Extremity: Right Full Weight Bearing Left Lower Extremity: Left Full Weight Bearing Referral Physician: Rolly Reason for Referral: Evaluation/Treatment Medical History Pertinent Medical History: Atrial Fib, CABG, CAD, DM, Dementia, HTN Additional Medical History Surgery/Hospitalization HX: APPY, CABGX4, DM, AFIB, ARTHRITIS, PACEMAKER, HTN, URINARY RETENTION Surgeries: Yes (OPEN PROSTATE SURGERY, CATARACTS) Appendectomy, CABG, Pacemaker Respiratory: No Chronic Bronchitis Cardiac: Yes (QUAD BYPASS, pacemaker) Coronary Artery Disease, Heart Attack, Hypertension Neurological: No Reproductive Disorders: No Sexually Transmitted Disease: No HIV/AIDS: No Genitourinary: Yes Benign Prostatic Hyperpl, Kidney Stones Gastrointestinal: Yes Gastroesophageal Reflux, Hemorrhoids Musculoskeletal: Yes (history of fx ribs) Arthritis Endocrine: Yes Diabetes, Non-Insulin dep HEENT: Yes Cataract Loss of Vision: Denies Cancer: Yes Melanoma What Type of Treatment Did You: Surgical Intervention Psychosocial: Yes Depression Integumentary: Yes (melanoma R neck) Blood Disorders: No Reviewed History: Yes Social History Home: Single Level Current Living Status: Spouse Entry Into Home: Stairs With Railing PT Steps Into Home: 4 Prior Prior Level of Function SCALE: Activities may be completed with or without assistive devices. 8-Sqllusmukj-lmcfsdv completes the activity by him/herself with no assistance from a helper. 5-Set-up or Clean-up Assistance-helper sets up or cleans up; patient completes activity. [place] assists only prior to or following the activity. 4-Supervision or Touching Assistance-helper provides verbal cues and/or touching/steadying and/or contact guard assistance as patient completes activity. Assistance may be provided throughout the activity or intermittently. 3-Partial/Moderate Assistance-helper does LESS THAN HALF the effort. [place] lifts, holds or supports trunk or limbs, but provides less than half the effort. 2-Substantial/Maximal Assistance-helper does MORE THAN HALF the effort. [place] lifts or holds trunk or limbs and provides more than half the effort. 9-Qowslllnu-vzfbih does ALL the effort. Patient does none of the effort to complete the activity. Or, the assistance of 2 or more helpers is required for the patient to complete the activity. If activity was not attempted, code reason: 7-Patient Refused. 9-Not Applicable-not attempted and the patient did not perform the activity before the current illness, exacerbation or injury. 10-Not Attempted due to Environmental Limitations-(lack of equipment, weather restraints, etc.). 88-Not Attempted due to Medical Conditions or Safety Concerns. Bed Mobility: 3 (Min A) Transfers (B,C,W/C): 3 (Min A) Gait: 3 (Min A) Stairs: 3 (Min A) Indoor Mobility (Ambulation): Needed Some Help Stairs: Needed Some Help Prior Devices Use: Walker PT Evaluation-Current Subjective Patient in bed pre-tx, reports pain 6/10 in back an R upper leg, agrees to PT. Objective Patient Orientation: Person, Place, Situation Attachments: IV ROM/Strength ROM Lower Extremities RLE WFL except knee AROM diminished significantly, LLE WFL except knee AROM diminished significantly Strength Lower Extremities LLE (hip flexion 4-/5, knee flexion 4+/5, knee extension 5/5, DF 5/5), RLE (hip flexion 3+/5, knee flexion 3/5, knee extension 3/5, DF 3+/5) Neuromuscular (Tone, Coordination, Reflexes) Coordination diminished Sensory Hearing: Impaired Hand Dominance: Right Sensation Right Lower Extremit: Intact Sensation Left Lower Extremity: Intact Transfers Roll Left to Right (QC): 3 (Min A) Lying to Sitting/Side of Bed(Q: 3 (Min A) Sit to Stand (QC): 3 (Mod A) Gait Distance: 5' Gait Assistive Device: FWW Comments/Gait Description Patient balance and strength diminished, only able to walk bed<->chair. Patient has decreased knee extension. Min assist for ambulation. Balance Sitting Static: Poor (patient needs arm support and leans to the left) Sitting Dynamic: Poor (patient needs arm support and leans to the left) Standing Static: Fair Standing Dynamic: Fair Treatment Ambulation, Transfer, LE Strengthening (AP 10, LAQ 10, Hip Flexion 10) Assessment/Needs Patient mobility, balance, strength and coordination diminished. Patient has forward posturing with walking from bed to recliner. Patient in recliner post-tx with tray, nurse call, daughter in room, all needs met. Rehab Potential: Fair PT Grinding Machine Operator Goals Grinding Machine Operator Goals PT Retirement Goals Time Frame: Sep 07, 2022 Roll Left & Right (QC): 4 (SBA) Sit to Lying (QC): 4 (SBA) Lying-Sitting on Side/Bed(QC): 4 (SBA) Sit to Stand (QC): 4 (SBA) Chair/Ixa-fn-Efpvi Xfer(QC): 4 (SBA) Toilet Transfer (QC): 4 (SBA) Walk 10 feet (QC): 4 (SBA) Walk 50ft with 2 Turns (QC): 4 (SBA) PT Plan Problem List Problem List: Activity Tolerance, Functional Strength, Safety, Balance, Gait, Transfer, Bed Mobility, ROM Treatment/Plan Treatment Plan: Continue Plan of Care Treatment Plan: Bed Mobility, Education, Functional Activity Melva, Functional Strength, Gait, Safety, Therapeutic Exercise, Transfers Treatment Duration: Sep 07, 2022 Frequency: 6 times per week Estimated Hrs Per Day: .25 hour per day Patient and/or Family Agrees t: Yes Safety Risks/Education Patient Education: Gait Training, Transfer Techniques, Correct Positioning, Safety Issues Teaching Recipient: Patient, Family Teaching Methods: Demonstration, Discussion Response to Teaching: Reinforcement Needed Discharge Recommendations Plan Patient will perform bed mobility and transfer training, endurance and balance training, gait and functional strengthening in order to be more independent at home. Therapy Discharge Recommendati: Home & Family Time Time In: 1515 Time Out: 1535 DATE: Aug 31, 2022 Total Billed Treatment Time: 20 Total Billed Treatment 1 visit EVM 20min ITZ PEARSON PT Aug 31, 2022 15:39
[2022-08-31] MEDS: inSUlin ASPART (NovoLOG) 1 UNIT/0.01 ML (CHARGE PER UNIT) SC SCH ×2 (15:58→20:40)
[2022-08-31 15:59] VITALS: BP 126/62
--- NOTE | 2022-08-31 17:10 | History & Physicial ---
History of Present Illness History of Present Illness Reason for visit/HPI Gage is an 87-year-old male with a history of diabetes and hypertension who presents to [facility] emergency department with pain to the right hip. He is getting ready to be a resident of long-term care this coming Monday. He did take a fall however last week and was seen at [facility] urgent care and x-ray had been performed. There was no fractures identified at that time. He has still had constant right hip pain. His daughter reports he has been taking Tylenol 500 mg and it has not helped him at all. He was recently admitted with urinary tract infection and he had confusion prior to treatment. He did improve after a brief stay at the hospital receiving antibiotics. He is also on Eliquis prescribed by cardiology. Date of Admission Aug 31, 2022 at 10:18 Date Seen by a Provider: Aug 31, 2022 Time Seen by a Provider: 17:15 I consulted on this patient on 08/31/22 17:07 Attending Physician Bob Farfan MD Admitting Physician Admitting Physician: Bob Farfan MD Attending Physician: Bob Farfan MD Consult Allergies and Home Medications Allergies Coded Allergies: No Known Drug Allergies (Unverified , 08/31/22) Patient Home Medication List Home Medication List Reviewed: Yes Amlodipine Besylate (Amlodipine Besylate) 10 Mg Tablet, 10 MG PO DAILY, ( Reported) Entered as Reported by: YOHAN FIERRO on 10/25/189 Last Action: Reviewed Apixaban (Eliquis) 2.5 Mg Tablet, 2.5 MG PO BID, (Reported) Entered as Reported by: RODDY LA on 06/14/22 1546 Last Action: Reviewed Aspirin (Aspirin EC) 81 Mg Tablet.dr, 81 MG PO DAILY, (Reported) Entered as Reported by: RODDY LA on 06/14/22 1546 Last Action: Reviewed Atorvastatin Calcium (Atorvastatin Calcium) 20 Mg Tablet, 20 MG PO DAILY, (Reported) Entered as Reported by: YOHAN FIERRO on 10/25/181318 Last Action: Reviewed Escitalopram Oxalate (Escitalopram Oxalate) 10 Mg Tablet, 10 MG PO DAILY, (Reported) Entered as Reported by: RODDY LA on 08/31/22 1531 Last Action: Reviewed Glimepiride (Glimepiride) 2 Mg Tablet, 2 MG PO DAILY, (Reported) Entered as Reported by: YOHAN FIERRO on 10/25/181318 Last Action: Reviewed Hydrochlorothiazide (Hydrochlorothiazide) 25 Mg Tablet, 25 MG PO DAILY, (Reported) Entered as Reported by: RODDY LA on 06/14/22 1546 Last Action: Reviewed Lisinopril (Lisinopril) 40 Mg Tablet, 40 MG PO DAILY, (Reported) Entered as Reported by: YOHAN FIERRO on 10/25/181318 Last Action: Reviewed Metformin HCl (Metformin HCl) 500 Mg Tablet, 500 MG PO BID WITH MEALS, (Reported) Entered as Reported by: YOHAN FIERRO on 10/25/181318 Last Action: Reviewed Metoprolol Succinate (Metoprolol Succinate) 25 Mg Tab.er.24h, 25 MG PO DAILY, (Reported) Entered as Reported by: RODDY LA on 08/31/22 1531 Last Action: Reviewed Tamsulosin HCl (Flomax) 0.4 Mg Cap, 0.4 MG PO DAILY, (Reported) Entered as Reported by: YOHAN FIERRO on 10/27/20 0856 Last Action: Reviewed Discontinued Medications Cephalexin (Cephalexin) 250 Mg Tablet, 250 MG PO TID Discontinued Reason: No Longer Taking Prescribed by: BOB FARFAN on 06/16/22 0802 Last Action: Discontinued Metoprolol Succinate (Metoprolol Succinate) 50 Mg Tab.er.24h, 25 MG PO DAILY, (Reported) Discontinued Reason: Referral/FU Appt-Addtl Entered as Reported by: YOHAN FIERRO on 10/27/20 08 Last Action: Discontinued Past Ctutnup-Llbahs-Yobdmz Hx Patient Social History Marrital Status: Recent Hopitalizations: No Have you traveled recently?: No Alcohol Use?: No Pt feels they are or have been: No Immunizations Up To Date Tetanus Booster (TDap): More than 5yrs Pediatric: No Date of Pneumonia Vaccine: Jun 23, 2012 Date of Influenza Vaccine: Jul 22, 2020 Seasonal Allergies Seasonal Allergies: No Surgeries Yes (OPEN PROSTATE SURGERY, CATARACTS) Appendectomy, CABG, Pacemaker Respiratory No Cardiovascular Yes (QUAD BYPASS, pacemaker) Coronary Artery Disease, Heart Attack, Hypertension Neurological No Reproductive System Hx Reproductive Disorders: No Sexually Transmitted Disease: No HIV/AIDS: No Genitourinary Yes Benign Prostatic Hyperpl, Kidney Stones Gastrointestinal Yes Gastroesophageal Reflux, Hemorrhoids Musculoskeletal Yes (history of fx ribs) Arthritis Endocrine History of Endocrine Disorders: Yes Endocrine Disorders: Diabetes, Non-Insulin dep HEENT History of HEENT Disorders: Yes HEENT Disorders: Cataract Loss of Vision: Denies Cancer Yes Melanoma Type of Treatment: Surgical Intervention Psychosocial History of Psychiatric Problem: Yes Behavioral Health Disorders: Depression Integumentary History of Skin or Integumenta: Yes (melanoma R neck) Blood Transfusions History of Blood Disorders: No Review of Systems Constitutional: see HPI Physical Exam Vital Signs Vital Signs - First Documented 08/31/22 08/31/22 08/31/22 08/31/22 06:06 11:15 11:43 12:03 Temp 36.8 Pulse 70 Resp 18 B/P (MAP) 158/73 (101) Pulse Ox 95 O2 Delivery Room Air FiO2 21 Capillary Refill : Less Than 3 Seconds Height, Weight, BMI Height: 5'11.00" Weight: 219lbs. 0.0oz. 99.194267kr; 31.01 BMI Method:Stated General Appearance: Mild Distress Eyes: Bilateral Eye Normal Inspection Assessment/Plan Assessment and Plan 1. Right gluteal hematoma 2. Urinary tract infection 3. History of hypertension 4. History of diabetes mellitus adult onset Admission Diagnosis 1. Right gluteal hematoma 2. Urinary tract infection 3. History of hypertension 4. History of diabetes mellitus adult onset Admission Status: Inpatient Order (span 2 midnights) Reason for Inpatient Admission: Further antibiotic therapy for his urinary tract infection. Also physical therapy and Occupational Therapy regarding his right hip pain. BOB FARFAN MD Aug 31, 2022 17:10
[2022-08-31] MEDS: metFORMIN 500 MG (GLUCOPHAGE) TAB PO SCH (17:51)
[2022-08-31 19:36] VITALS: BP 144/65
[2022-08-31] MEDS: APIXABAN 2.5 MG (ELIQUIS) TABLET PO SCH (20:46)
[2022-08-31] MEDS ORDERED: APIXABAN 2.5 MG (ELIQUIS) TABLET PO SCH (21:00)
[2022-09-01 00:07] VITALS: BP 106/54
[2022-09-01 03:34] VITALS: BP 114/62
[2022-09-01] MEDS: inSUlin ASPART (NovoLOG) 1 UNIT/0.01 ML (CHARGE PER UNIT) SC SCH ×4 (05:04→21:20)
[2022-09-01] MEDS: GLIMEPIRIDE 2 MG (AMARYL) TAB PO SCH (06:29)
[2022-09-01 07:50] VITALS: BP 134/74
--- NOTE | 2022-09-01 08:08 | Progress Note ---
Subjective Date Seen by a Provider: Sep 01, 2022 Time Seen by a Provider: 07:10 Subjective/Events-last exam 87-year-old male admitted yesterday after having hematoma in his right buttocks. He had taken a fall initially. He is admitted for further monitoring of his pain and control of pain. He will be evaluated and have physical therapy and occupational therapy while he is here as well. Today he does not voice any known new concerns. Objective Exam Vital Signs Date Time Temp Pulse Resp B/P (MAP) Pulse Ox O2 Delivery O2 Flow Rate FiO2 09/01/22 07:50 36.6 102 16 134/74 (94) 93 Room Air 09/01/22 03:34 36.0 70 18 114/62 (79) 94 Room Air 09/01/22 00:07 36.8 76 16 106/54 (71) 95 Room Air 08/31/22 20:00 Room Air 08/31/22 19:50 100 Room Air 21 08/31/22 19:36 36.6 68 18 144/65 (91) 100 Room Air 08/31/22 15:59 36.4 72 18 126/62 (83) 97 Room Air 08/31/22 12:03 36.7 71 96 21 08/31/22 11:58 36.7 71 16 124/69 (87) 96 Room Air 08/31/22 11:43 96 Room Air 08/31/22 11:15 73 19 120/63 95 I & O 09/01/22 07:00 Intake Total 3190 ml Output Total 1100 ml Balance 2090 ml Capillary Refill : Less Than 3 Seconds General Appearance: No Apparent Distress (sitting up in chair) Respiratory: Lungs Clear Cardiovascular: Regular Rate, Rhythm Extremity: Other (he has firmness to the right proximal thigh region gluteal) Neurologic/Psychiatric: Alert, Oriented x3 Results Lab Laboratory Tests 08/31/22 15:53: Glucometer 142H 09/01/22 04:57: Glucometer 119H Assessment/Plan Assessment/Plan Assess & Plan/Chief Complaint 1. Right gluteal hematoma -he is noted to have sensation as well as normal pulses to the lower extremity on the right -Occupational and physical therapy continue -suspect he will be discharged from the hospital to [facility] place in [facility] most likely on September 02, 2022 2. Urinary tract infection -Day #2 of ceftriaxone 3. History of hypertension -He is started back on his antihypertensive regimen 4. History of diabetes mellitus adult onset -He is on metformin Clinical Quality Measures Admission Status Admission Dx 1. Right gluteal hematoma 2. Urinary tract infection 3. History of hypertension 4. History of diabetes mellitus adult onset FAUSTINA FARFAN MD Sep 01, 2022 08:08
[2022-09-01] MEDS: ASPIRIN E.C. 81 MG (ECOTRIN) TAB PO SCH (09:00)
[2022-09-01] MEDS: metFORMIN 500 MG (GLUCOPHAGE) TAB PO SCH ×2 (09:00→17:36)
[2022-09-01] MEDS: TAMSULOSIN 0.4 MG (FLOMAX) CAP PO SCH (09:00)
[2022-09-01] MEDS: cefTRIAXone 1 GM PRE-MIX 50 ML IV SCH (09:00)
[2022-09-01] MEDS: lisINopril 40 MG (PRINIVIL) TABLET PO SCH (09:00)
[2022-09-01] MEDS: APIXABAN 2.5 MG (ELIQUIS) TABLET PO SCH ×2 (09:00→21:22)
[2022-09-01] MEDS: amLODIPine 10 MG (NORVASC) TAB PO SCH (09:00)
[2022-09-01 11:28] VITALS: BP 127/77
--- NOTE | 2022-09-01 11:38 | Physical Therapy Daily Note ---
PT Daily Note-Current Subjective Patient in bed pre-tx, reports pain but unable to say where or rate it, agrees to PT. Pain Section J - Health Conditions 1. Rarely or not at all 2. Occasionally 3. Frequently 4. Almost constantly 8. Unable to answer Pain Effect on Sleep: 1 Pain Interference with Therapy: 1 Pain Interference w/Day-to-Day: 1 Appearance Patient in recliner post-tx with chair alarm on, nurse call, phone, tray, all needs met. Mental Status Patient Orientation: Person, Place, Situation Transfers SCALE: Activities may be completed with or without assistive devices. 1-Cfgogvaarm-brrychp completes the activity by him/herself with no assistance from a helper. 5-Set-up or Clean-up Assistance-helper sets up or cleans up; patient completes activity. [place] assists only prior to or following the activity. 4-Supervision or Touching Assistance-helper provides verbal cues and/or touching/steadying and/or contact guard assistance as patient completes activity. Assistance may be provided throughout the activity or intermittently. 3-Partial/Moderate Assistance-helper does LESS THAN HALF the effort. [place] lifts, holds or supports trunk or limbs, but provides less than half the effort. 2-Substantial/Maximal Assistance-helper does MORE THAN HALF the effort. [place] lifts or holds trunk or limbs and provides more than half the effort. 2-Uoocjwked-ymkplo does ALL the effort. Patient does none of the effort to complete the activity. Or, the assistance of 2 or more helpers is required for the patient to complete the activity. If activity was not attempted, code reason: 7-Patient Refused. 9-Not Applicable-not attempted and the patient did not perform the activity before the current illness, exacerbation or injury. 10-Not Attempted due to Environmental Limitations-(lack of equipment, weather restraints, etc.). 88-Not Attempted due to Medical Conditions or Safety Concerns. Roll Left & Right (QC): 3 (Min A) Lying to Sitting/Side of Bed(Q: 3 (Min A) Sit to Stand (QC): 3 (Mod A) Weight Bearing Right Lower Extremity: Right Full Weight Bearing Left Lower Extremity: Left Full Weight Bearing Gait Training Distance: 5' Gait Persons Needed: 1 Gait Assistive Device: FWW Patient able to take a few steps to get from bed to recliner, patient has moderate forward posturing. Exercises Seated Therapy Exercises: Ankle pumps, Long arc quads, Hip flexion Seated Reps: 15 Treatments LE Strengthening Assessment Current Status: Fair Progress Patient not able to ambulate around the room due to safety issues and diminished strength. Patient able to uzj-jb-kxnfr with therapy Mod A and ambulate to the recliner with CGA. PT Publications Editor Goals Senior Living Goals PT Senior Living Goals Time Frame: Sep 07, 2022 Roll Left & Right (QC): 4 (SBA) Sit to Lying (QC): 4 (SBA) Lying-Sitting on Side/Bed(QC): 4 (SBA) Sit to Stand (QC): 4 (SBA) Chair/Mcw-xz-Btqwd Xfer(QC): 4 (SBA) Toilet Transfer (QC): 4 (SBA) Walk 10 feet (QC): 4 (SBA) Walk 50ft with 2 Turns (QC): 4 (SBA) PT Plan Problem List Problem List: Activity Tolerance, Functional Strength, Safety, Balance, Gait, Transfer, Bed Mobility, ROM Treatment/Plan Treatment Plan: Continue Plan of Care Treatment Plan: Bed Mobility, Education, Functional Activity Melva, Functional Strength, Gait, Safety, Therapeutic Exercise, Transfers Treatment Duration: Sep 07, 2022 Frequency: 6 times per week Estimated Hrs Per Day: .25 hour per day Patient and/or Family Agrees t: Yes Safety Risks/Education Patient Education: Transfer Techniques, Correct Positioning, Safety Issues Teaching Recipient: Patient Teaching Methods: Demonstration, Discussion Response to Teaching: Reinforcement Needed Time Time In: 1104 Time Out: 1118 DATE: Sep 01, 2022 Total Billed Treatment Time: 14 Total Billed Treatment 1 visit EX 14min ASHLYN AJ PT Sep 01, 2022 11:38
--- NOTE | 2022-09-01 11:45 | Occupational Ther Daily Note ---
OT Current Status-Daily Note Subjective Pt in recliner, agreeable to OT tx. Pt states he is tired and would like to rest at the end of tx. ADL-Treatment Therapy Code Descriptions/Definitions Functional [place] Measure: 0=Not Assessed/NA 4=Minimal Assistance 1=Total Assistance 5=Supervision or Setup 2=Maximal Assistance 6=Modified [place] 3=Moderate Assistance 7=Complete IndependenceSCALE: Activities may be completed with or without assistive devices. 5-Ivakmlmaho-ycdytzh completes the activity by him/herself with no assistance from a helper. 5-Set-up or Clean-up Assistance-helper sets up or cleans up; patient completes activity. [place] assists only prior to or following the activity. 4-Supervision or Touching Assistance-helper provides verbal cues and/or touching/steadying and/or contact guard assistance as patient completes activity. Assistance may be provided throughout the activity or intermittently. 3-Partial/Moderate Assistance-helper does LESS THAN HALF the effort. [place] lifts, holds or supports trunk or limbs, but provides less than half the effort. 2-Substantial/Maximal Assistance-helper does MORE THAN HALF the effort. [place] lifts or holds trunk or limbs and provides more than half the effort. 0-Gvnxohbym-hmhubt does ALL the effort. Patient does none of the effort to complete the activity. Or, the assistance of 2 or more helpers is required for the patient to complete the activity. If activity was not attempted, code reason: 7-Patient Refused. 9-Not Applicable-not attempted and the patient did not perform the activity before the current illness, exacerbation or injury. 10-Not Attempted due to Environmental Limitations-(lack of equipment, weather restraints, etc.). 88-Not Attempted due to Medical Conditions or Safety Concerns. On/Off Footwear: 2 (Max A verall. Pt unable to doff/don R gripper sock. Pt able to doff L gripper sock, min A to don.) Other Treatment Pt in recliner, agreeable to OT Tx. Pt attempted footwear (see QC score above). Pt then completed x10 reps each of the following BUE exercises in order to increase strength and activity tolerance: shoulder flexion (limited due to arthritis, pt clasped both hands together for movement), elbow flexion/extension, finger flexion/extension. Pt took rest breaks between exercises, required slight redirection to task as pt became distracted with stories. Pt requested to rest after exercises. Post tx, pt in recliner, call light in reach and all needs met. chair alarm activated Education OT Patient Education: Correct positioning, Energy conservation, Exercise progr am, Modified ADL techniques, Progress toward Goal/Update tx plan, Purpose of tx/functional activities, Rehab process Teaching Recipient: Patient Teaching Methods: Discussion Response to Teaching: Verbalize Understanding OT Orchard Sprayer Goals Or[place] Sprayer Goals Time Frame: Sep 16, 2022 Eating (QC): 6 Oral Hygiene (QC): 5 Toileting Hygiene (QC): 4 Shower/Bathe Self (QC): 4 Upper Body Dressing (QC): 5 Lower Body Dressing (QC): 4 On/Off Footwear (QC): 3 Additional Goals: 1-Demonstrate ADL Tasks, 2-Verbalize Understanding, 3- ImproveStrength/Melva 1=Demonstrate adherence to instructed precautions during ADL tasks. 2=Patient will verbalize/demonstrate understanding of assistive devices/modifications for ADL. 3=Patient will improve strength/tolerance for activity to enable patient to perform ADL's. OT Education/Plan Problem List/Assessment Assessment: Decreased Activ Tolerance, Decreased UE Strength, Impaired Funct Balance, Impaired I ADL's, Impaired Self-Care Skills Pt would benefit from skilled OT services in order to increase BUE strength and activity tolerance and increase independence with ADLs and functional mobility to maximize LOF for safe return home (or [facility]) with spouse. Discharge Recommendations Plan/Recommendations: Continue POC Treatment Plan/Plan of Care Patient would benefit from OT for education, treatment and training to promote independence in ADL's, mobility, safety and/or upper extremity function for ADL's. Plan of Care: ADL Retraining, Functional Mobility, UE Funct Exercise/Act Treatment Duration: Sep 16, 2022 Frequency: 3 times per week (3-5 times per week) Estimated Hrs Per Day: .25 hour per day Agreement: Yes Rehab Potential: Fair Time Start Time: 11:27 Stop Time: 11:38 DATE: Sep 01, 2022 Total Time Billed (hr/min): 11 Billed Treatment Time 1, EX KIARRA DAI OT Sep 01, 2022 11:45
[2022-09-01 15:46] VITALS: BP 133/66
[2022-09-01 19:15] VITALS: BP 138/63
[2022-09-02 03:23] VITALS: BP 142/72
[2022-09-02] MEDS: GLIMEPIRIDE 2 MG (AMARYL) TAB PO SCH (06:41)
[2022-09-02] MEDS: inSUlin ASPART (NovoLOG) 1 UNIT/0.01 ML (CHARGE PER UNIT) SC SCH ×2 (06:41→11:40)
--- NOTE | 2022-09-02 07:58 | Discharge Inst-Simple/Standard ---
Discharge Inst-Standard Reconcile Patient Problems Problems Reviewed?: Yes Discharge Medications New, Converted or Re-Newed RX: Other (no new meds) Patient Instructions/Follow Up Plan of Care/Instructions/FU: DC to [facility] in [facility]. He will fu with health care provider within the week in [facility] Activity as Tolerated: Yes Discharge Diet: Regular Diet (heart healthy) Return to [facility] For: Change of health or mental status. Fever. Unable to walk. FAUSTINA FARFAN MD Sep 02, 2022 07:58
[2022-09-02 08:00] VITALS: BP 128/78
--- NOTE | 2022-09-02 08:04 | Discharge Summary ---
Diagnosis/Chief Complaint Date of Admission Aug 31, 2022 at 10:18 Date of Discharge September 02, 2022 Discharge Date: Sep 02, 2022 Discharge Time: 1200 Admission Diagnosis Admission Diagnosis 1. Right gluteal hematoma 2. Urinary tract infection 3. History of hypertension 4. History of diabetes mellitus adult onset Discharge Diagnosis 1. Right gluteal hematoma 2. Urinary tract infection 3. History of hypertension 4. History of diabetes mellitus adult onset Reason Hospital Visit Gage is an 87-year-old male with a history of diabetes and hypertension who presents to [facility] emergency department with pain to the right hip. He is getting ready to be a resident of long-term care this coming Monday. He did take a fall however last week and was seen at [place] urgent [facility] and x-ray had been performed. There was no fractures identified at that time. He has still had constant right hip pain. His daughter reports he has been taking Tylenol 500 mg and it has not helped him at all. He was recently admitted with urinary tract infection and he had confusion prior to treatment. He did improve after a brief stay at the hospital receiving antibiotics. He is also on Eliquis prescribed by cardiology. Discharge Summary Hospital Course Was the Problem List Reviewed?: Yes Hospital Course Patient was admitted to [facility] after being evaluated in the emergency department. He was found at that time to have a right-sided gluteal hematoma and he had extensive bruising down the right buttocks and thigh region. He was also noted to have a urinary tract infection and at this point was started on ceftriaxone. He was in quite a bit of pain due to the right gluteal hematoma and was very unsteady on his feet. He was felt to be at risk for another fall and therefore he was admitted for antibiotics for the UTI as well as pain control. Physical therapy and occupational therapy was consult it and during the course of his hospital stay had improved with regards to his walking. He was walking but he had to use assistance with 4 point. Family was very concerned about him returning home and at this point his and him will be going to [facility] in [facility] following his dismissal. legal services professional was consult it and help with the arrangements. He will be discharged during the early afternoon of September 02, [address] [facility]. I spoke with his daughter Isabelle and he will be maintained on his regular medications. His pain appears to be currently controlled and he did not require tramadol on September 01. All questions were answered Labs Laboratory Tests 08/31/22 06:39: Urine Protein 2+H, Urine Leukocyte Esterase 3+H, Urine RBC (Auto) 1+H, Urine RBC 2-5H, Urine WBC TNTCH, Urine Bacteria LARGEH 08/31/22 07:20: Red Blood Count 3.28L, Hemoglobin 10.0L, Hematocrit 31L, Monocytes (%) (Auto) 15H, Lymphocytes # (Auto) 0.9L, Chloride Level 109H, Blood Urea Nitrogen 24H, Calcium Level 10.4H 08/31/22 15:53: Glucometer 142H 09/01/22 04:57: Glucometer 119H 09/01/22 11:25: 09/01/22 15:48: 09/01/22 20:30: Glucometer 147H 09/02/22 06:32: Procedures None. Discharge Physical Examination Allergies: Coded Allergies: No Known Drug Allergies (Unverified , 08/31/22) Vitals & I&Os Vital Signs Date Time Temp Pulse Resp B/P (MAP) Pulse Ox O2 Delivery O2 Flow Rate FiO2 09/02/22 03:23 36.6 87 18 142/72 (95) 97 Room Air 08/31/22 19:50 21 General Appearance: Alert, No Acute Distress Respiratory: Clear to Auscultation Cardiovascular: Regular Rate Abdominal: Normal Bowel Sounds, Soft Skin: No Rashes Discharge Home Medications Reviewed and agree with Discharge Medication list on patient's Discharge Instruction sheet Instructions to Patient/Family Please see electronic discharge instructions given to patient. FAUSTINA FARFAN MD Sep 02, 2022 08:04
[2022-09-02] MEDS: cefTRIAXone 1 GM PRE-MIX 50 ML IV SCH (09:01)
[2022-09-02] MEDS: APIXABAN 2.5 MG (ELIQUIS) TABLET PO SCH (09:02)
[2022-09-02] MEDS: TAMSULOSIN 0.4 MG (FLOMAX) CAP PO SCH (09:02)
[2022-09-02] MEDS: metFORMIN 500 MG (GLUCOPHAGE) TAB PO SCH (09:02)
[2022-09-02] MEDS: amLODIPine 10 MG (NORVASC) TAB PO SCH (09:02)
[2022-09-02] MEDS: ASPIRIN E.C. 81 MG (ECOTRIN) TAB PO SCH (09:02)
[2022-09-02] MEDS: lisINopril 40 MG (PRINIVIL) TABLET PO SCH (09:02)
[2022-09-02 12:00] VITALS: BP 157/63
== END 2022-09-02 08:02 ==
LOC: EDUNIT# 05:57 → ER 05:58 → UNDOADMOB 10:18 → 4TH 10:18 → UNDODISOB 09-02 08:02
PROVIDERS: ADMIT Family Medicine; ATTEND Family Medicine
DX: S30.0XXA Contusion of lower back and pelvis, initial encounter (principal); N39.0 Urinary tract infection, site not specified; I10 Essential (primary) hypertension; E11.9 Type 2 diabetes mellitus without complications; Z79.82 Long term (current) use of aspirin; Z79.84 Long term (current) use of oral hypoglycemic drugs
CPT/HCPCS: 70450; 72192; 73502; 80048; 81000; 82947 ×3; 85025; 87077; 87088; 87186; 93005; 96376; 97110; 97162; 97166; 97530; 97535; 99283; G0378; 36415